=== PATIENT | female | born 1935 | race Caucasian/White ===

== ENCOUNTER → 2019-01-22 | Outpatient (CLI) | payer MEDICARE ==
--- NOTE | 2019-01-22 15:51 | Diagnostic Imaging Report ---
Indication: Pain, fall Comparison: Imaging from same day Technique: Frontal and lateral radiographs of the thoracic spine dated 01/22/2019. Findings: Mild accentuation of the normal thoracic kyphosis. No significant anterolisthesis or retrolisthesis within the thoracic spine itself. Minimal anterior wedging within the mid thoracic spine without discrete fracture plane. Otherwise, scattered endplate degenerative changes without discrete vertebral body compression deformity. Scattered disc space height loss, greatest near the thoracolumbar junction. Multilevel anterior osteophytes. No acute fracture plane. No large volume pleural effusion. No suspicious radiopaque foreign body. Scattered vascular calcifications. Impression: Mild anterior wedging within the mid thoracic spine without discrete fracture plane. This is of uncertain chronicity, though given appearance, favored to be chronic in nature. Recommend correlation for focal pain. Additionally, comparison to prior imaging would be beneficial. If there remains clinical concern for this region, further evaluation with MRI could be obtained. Scattered degenerative changes. Dictated by: Dictated on workstation # [id number]
--- NOTE | 2019-01-22 15:53 | Diagnostic Imaging Report ---
INDICATION: Back pain post fall. AP and lateral views of the lumbar spine are obtained. FINDINGS: Lumbar vertebrae show anterolisthesis of L4 on L5 by about 12 mm, compatible with grade 2 anterolisthesis. There is diffuse facet degenerative change throughout the lumbar spine from L3 through S1. There is some irregularity of the L2 superior endplate which is likely chronic. IMPRESSION: Grade 2 spondylolisthesis of L4 on L5. Diffuse degenerative change in the lumbar spine. There is some irregularity of the superior endplate of L2 anteriorly, which is of uncertain age but likely chronic. Dictated by: Dictated on workstation # [id number]
== END ==
LOC: RAD FS 15:12
PROVIDERS: ATTEND Chiropractor
DX: M43.16 Spondylolisthesis, lumbar region (principal); M47.816 Spondylosis without myelopathy or radiculopathy, lumbar region; M47.814 Spondylosis without myelopathy or radiculopathy, thoracic region; W19.XXXA Unspecified fall, initial encounter
CPT/HCPCS: 72070; 72100

== ENCOUNTER → 2020-10-09 | Outpatient (CLI) | payer MEDICARE ==
[~2020-10-09] VITALS: Ht 170.2 cm; Wt 100.0 kg
[~2020-10-09] MED LIST: LIDOCAINE 1% INJ 20 ML 20 ML VIAL INJ ONE; LIDOCAINE 1% INJ 20 ML 20 ML VIAL ONE
--- NOTE | 2020-10-09 14:12 | Diagnostic Imaging Report ---
INDICATION: Right lobe thyroid mass. EXAM: The patient presents for ultrasound guided fine needle aspiration and biopsy. FINDINGS: The patient was brought to the procedure room, placed on the table in the supine position. Ultrasound imaging of the right neck was performed to evaluate appropriate entry site. The right neck was then prepped and draped in the usual sterile fashion. A small amount 1% lidocaine was utilized for local anesthesia. A total of 4 passes were made into the solid nodule in the right lobe of the thyroid utilizing 25-gauge needles and fine needle aspiration technique. A single pass was made into the nodule with a Rotex needle and a Rotex biopsy was performed. Hemostasis was obtained using manual compression. The patient tolerated the procedure well and left the department in stable condition. IMPRESSION: Successful ultrasound guided fine needle aspiration and Rotex biopsy of dominant solid right lobe thyroid nodule. Pathology results are currently pending. Dictated by: Dictated on workstation # [id number]
== END ==
LOC: RAD 12:58
PROVIDERS: ATTEND Family Medicine
DX: E04.1 Nontoxic single thyroid nodule (principal)
CPT/HCPCS: 10005; 88173

== ENCOUNTER 2021-02-13 15:12 | Emergency (ER) | payer MEDICARE ==
[~2021-02-13] VITALS: Ht 167.7 cm; Wt 102.0 kg
[2021-02-13] MEDS ORDERED: fentaNYL INJ 100 MCG/2 ML AMP IVP ONE (15:30)
[2021-02-13] MEDS ORDERED: ONDANSETRON 4 MG/2 ML (SDV) Z0FRAN IVP ONE (15:30)
[2021-02-13 15:37] LABS: HEMOGLOBIN 14.4 G/DL (11.5-16.0); MEAN CORPUSCULAR HEMOGLOBIN 33 PG (25-34); WHITE BLOOD COUNT 6.9 10^3/uL (4.3-11.0)
[2021-02-13 15:38] LABS: BASOPHILS # (AUTO) 0.1 10^3/uL (0.0-0.1); BASOPHILS % (AUTO) 1 % (0-10); EOSINOPHILS # (AUTO) 0.3 10^3/uL (0.0-0.3); EOSINOPHILS % (AUTO) 5 % (0-10); HEMATOCRIT 43 % (35-52); LYMPHOCYTES # (AUTO) 2.6 X 10^3 (1.0-4.0); LYMPHOCYTES % (AUTO) 38 % (12-44); MEAN CORPUSCULAR HGB CONC 34 G/DL (32-36); MEAN CORPUSCULAR VOLUME 98 FL (80-99); MONOCYTES # (AUTO) 0.5 X 10^3 (0.0-1.0); MONOCYTES % (AUTO) 8 % (0-12); NEUTROPHILS # (AUTO) 3.3 X 10^3 (1.8-7.8); NEUTROPHILS % (AUTO) 48 % (42-75); PLATELET COUNT 197 10^3/uL (130-400)
[2021-02-13 16:05] LABS: CREATININE SERUM 0.6 MG/DL (0.60-1.30); POTASSIUM 4.2 MMOL/L (3.6-5.0)
[2021-02-13 16:06] LABS: ALBUMIN 4.4 GM/DL (3.2-4.5); BILIRUBIN,TOTAL 0.6 MG/DL (0.1-1.0); TOTAL PROTEIN 7.5 GM/DL (6.4-8.2)
--- NOTE | 2021-02-13 16:07 | ED Hip Pain/Injury ---
General Chief Complaint: Hip/Pelvic Problems Stated Complaint: FALL,RT HIP INJ Nursing Triage Note: PT ARRIVED BY EMS WITH CHIEF COMPLAINT OF FALL WITH HIP INJURY. PT STATED TAHT SHE WAS IN THE KITCHEN COOKING HER LUNCH, WHEN SHE GRABBED THE ROLLING CHAIR AND SHE WENT DOWN WITH IT. PT COMPLAINS OF RIGHT HIP PAIN WITH A PAIN OF 5/6. PT HAS SHORTENING OF THE RIGHT LEG. PULSES WERE FOUND IN HER RIGHT LEG. EMS STARTED AN IV IN RIGHT HAND AND GAVE THE PATIENT 4 MG OF ZOFRAN AND A TOTAL OF 75 MCG OF FENTANYL. PT HAS HISTORY OF A-FIB AND EMS STATED SHE WAS IN A-FIB. PATIENT STATED SHE DOES NOT WANT ANYMORE PAIN MEDICATIONS. REPORT WAS GIVEN TO PROVIDER. Source: patient Exam Limitations: no limitations History of Present Illness Date Seen by Provider: Feb 13, 2021 Time Seen by Provider: 15:30 Initial Comments Patient is an 85-year-old female presents with accidental fall from standing with right hip injury/shortening. Patient was holding onto a roller chair and slipped in the kitchen landing on her right hip. Denies hitting her head, headache, loss of consciousness neck pain. No other injury or pain complaint pain. No distal extremity loss of sensation or new motor weakness history of chronic atrial fibrillation currently on Xarelto. Timing/Duration: just prior to arrival Severity: moderate Location: hip (R) Method of Injury: fell Modifying Factors: Improves With Movement Associated Symptoms: other Allergies and Home Medications Allergies Coded Allergies: No Known Drug Allergies (Unverified , 10/09/20) Patient Home Medication List Home Medication List Reviewed: Yes Review of Systems Constitutional: see HPI EENTM: no symptoms reported Respiratory: see HPI Cardiovascular: no symptoms reported Gastrointestinal: no symptoms reported Genitourinary: no symptoms reported Musculoskeletal: no symptoms reported Skin: no symptoms reported Psychiatric/Neurological: No Symptoms Reported Past Tzjifsb-Wykbdb-Thklcr Hx Patient Social History Tobacco Use?: Yes Smoking Status: Never a Smoker Substance use?: No Alcohol Use?: No Pt feels they are or have been: No Physical Exam Vital Signs Vital Signs - First Documented 02/13/21 15:14 Temp 36.1 Pulse 85 Resp 18 B/P (MAP) 191/109 (136) Pulse Ox 97 O2 Delivery Room Air Capillary Refill : Less Than 3 Seconds Height, Weight, BMI Height: '" Weight: lbs. oz. kg; 36.00 BMI Method: General Appearance: No Apparent Distress HEENT: PERRL/EOMI, Moist Mucous Membranes Neck: Full Range of Motion, Non Tender, Supple Cardiovascular: Regular Rate, Rhythm Respiratory: Lungs Clear Gastrointestinal: Soft Extremity: Other (Right hip lateral pain, tenderness foreshortening) Skin: Normal Color Lymphatic: No Adenopathy Progress/Results/Core Measures Results/Orders Lab Results Laboratory Tests Test 02/13/21 15:30 Range/Units White Blood Count 6.9 4.3-11.0 10^3/uL Red Blood Count 4.40 4.35-5.85 10^6/uL Hemoglobin 14.4 11.5-16.0 G/DL Hematocrit 43 35-52 % Mean Corpuscular Volume 98 80-99 FL Mean Corpuscular Hemoglobin 33 25-34 PG Mean Corpuscular Hemoglobin Concent 34 32-36 G/DL Red Cell Distribution Width 12.8 10.0-14.5 % Platelet Count 197 130-400 10^3/uL Mean Platelet Volume 10.0 7.4-10.4 FL Immature Granulocyte % (Auto) 0 % Neutrophils (%) (Auto) 48 42-75 % Lymphocytes (%) (Auto) 38 12-44 % Monocytes (%) (Auto) 8 0-12 % Eosinophils (%) (Auto) 5 0-10 % Basophils (%) (Auto) 1 0-10 % Neutrophils # (Auto) 3.3 1.8-7.8 X 10^3 Lymphocytes # (Auto) 2.6 1.0-4.0 X 10^3 Monocytes # (Auto) 0.5 0.0-1.0 X 10^3 Eosinophils # (Auto) 0.3 0.0-0.3 10^3/uL Basophils # (Auto) 0.1 0.0-0.1 10^3/uL Immature Granulocyte # (Auto) 0.0 0.0-0.1 10^3/uL Sodium Level 136 135-145 MMOL/L Potassium Level 4.2 3.6-5.0 MMOL/L Chloride Level 98 98-107 MMOL/L Carbon Dioxide Level 27 21-32 MMOL/L Anion Gap 11 5-14 MMOL/L Blood Urea Nitrogen 21 H 7-18 MG/DL Creatinine 0.60 0.60-1.30 MG/DL Estimat Glomerular Filtration Rate 95 BUN/Creatinine Ratio 35 Glucose Level 135 H 70-105 MG/DL Calcium Level 10.0 8.5-10.1 MG/DL Corrected Calcium 9.7 8.5-10.1 MG/DL Total Bilirubin 0.6 0.1-1.0 MG/DL Aspartate Amino Transf (AST/SGOT) 27 5-34 U/L Alanine Aminotransferase (ALT/SGPT) 23 0-55 U/L Alkaline Phosphatase 113 40-136 U/L Total Protein 7.5 6.4-8.2 GM/DL Albumin 4.4 3.2-4.5 GM/DL My Orders Orders - NELL ANGELES DO Pelvis With Right Hip 2-3 View (02/13/21 15:25) Femur 2 View Right (02/13/21 15:25) Chest 1 View Ap/Pa Only (02/13/21 15:25) Ekg-Prn For Chest Pain Or Rhyt (02/13/21 15:25) Cbc With Automated Diff (02/13/21 15:25) Comprehensive Metabolic Panel (02/13/21 15:25) Catheter(Urinary) Insert & Ass 03,15 (02/13/21 15:25) Fentanyl Inj (Sublimaze Injection) (02/13/21 15:30) Ondansetron Injection (Zofran Injectio (02/13/21 15:30) Ekg Tracing (02/13/21 15:36) Vital Signs/I&O 02/13/21 15:14 Temp 36.1 Pulse 85 Resp 18 B/P (MAP) 191/109 (136) Pulse Ox 97 O2 Delivery Room Air Blood Pressure Mean: 136 Departure Communication (Admissions) EKG: Atrial fibrillation, rate 77 Right hip/pelvis: Proximal right hip fracture Chest x-ray: No acute cardiopulmonary disease Patient with nondisplaced right hip fracture isolated injury. Neurovascularly intact. Patient accepted to [facility] per Dr. Camargo at 1600 Impression Primary Impression: Hip fracture, right Disposition: 02 XFER SHT-TRM HOSP Condition: Stable Transfer Transfer Reason: Exceeds level of care Time Spoke to Accepting Phy: 16:00 Method of Transfer: EMS Departure-Patient Inst. Decision time for Depature: 17:54 Referrals: SELFMADIHA MD (PCP/Family) Primary Care Physician Patient Instructions: Hip Fracture (DC) NELL ANGELES DO Feb 13, 2021 16:07
--- NOTE | 2021-02-13 17:02 | Diagnostic Imaging Report ---
INDICATION: Fall, hip pain. EXAMINATION: Chest, 02/13/2021. FINDINGS: The right and left hemidiaphragms are eventrated. The heart is prominent. Pulmonary vasculature unremarkable. Lungs and pleural spaces clear. No pneumothorax. IMPRESSION: Incidental findings with no acute cardiopulmonary process. Dictated by: Dictated on workstation # [id number]
--- NOTE | 2021-02-13 17:02 | Diagnostic Imaging Report ---
INDICATION: Right leg injury, pain, swelling. COMPARISON: None. FINDINGS: Multiple views of the right femur demonstrate an intact right knee arthroplasty. There is a comminuted fracture involving the proximal femur and intertrochanteric region of the right hip. There is no dislocation. IMPRESSION: Proximal femur right hip fracture. Dictated by: Dictated on workstation # [id number]
--- NOTE | 2021-02-13 17:02 | Diagnostic Imaging Report ---
INDICATION: Fall, right hip pain, injury, swelling. COMPARISON: None. FINDINGS: Single view of the pelvis and multiple views of the right hip demonstrate nondisplaced fracture of the intertrochanteric region of the right hip and proximal femur. There is no dislocation. The pelvis and left hip are intact. IMPRESSION: Nondisplaced proximal femur and intertrochanteric right hip fracture. Dictated by: Dictated on workstation # [id number]
[2021-02-13] MEDS ORDERED: fentaNYL INJ 100 MCG/2 ML AMP ONE (18:03)
[2021-02-13] MEDS ORDERED: ONDANSETRON 4 MG/2 ML (SDV) Z0FRAN ONE (18:04)
[2021-02-13 20:44] VITALS: BP 136/70
--- OUTSIDE RECORDS SUMMARY | 2021-02-14 01:48 | XMS REPORT | Clinical Summary ---
Author Author [facility] Organization [facility] Address Unknown Phone Unavailable Care Team Providers Care Credit Collections Specialist Name Role Phone Self, Geronimo BRODERICK PCP Kevin Holliday MD Unavailable Juan Messer MD Unavailable Chilango Shen MD Unavailable Source Comments Some departments are not documenting in the electronic medical record. If you d o not see the information that you expected, contact Release of Information in [facility] Information Management department at [phone] for further assistan ce in locating additional records.[facility] Allergies Comments Active Allergy Reactions Severity Noted Date Amiodarone NAUSEA AND 05/12/2012 VOMITING Dry Heeves Codeine SEE COMMENTS 10/29/2011 Digoxin NAUSEA AND 10/28/2011 VOMITING "Eyes itch and coughing" Seasonal Allergies SEE COMMENTS 02/25/2012 Medications End Date Status Medication Sig Dispensed Refills Start Date Active dabigatran (PRADAXA) 150 Take 150 mg 0 mg capsule by mouth twice daily. Active cloNIDine (CATAPRESS) 0.1 Take 0.1 mg 0 mg tablet by mouth daily. Active potassium chloride SR Take 20 mEq 0 (K-DUR) 20 mEq tablet by mouth daily with breakfast. Active ropinirole (REQUIP) 0.5 Take 0.5-1 mg 0 mg tablet by mouth at bedtime as needed. Active glucosamine(+) 500 mg Tab Take 1,000 mg 0 by mouth daily. Active ONE DAILY MULTI-VITAMIN Take 1 Tab by 0 PO mouth daily. Active furosemide (LASIX) 40 mg Take 40 mg by 0 tablet mouth daily. Active diltiazem SR (+) (TAZTIA Take 360 mg 0 XT) 360 mg capsule by mouth daily. Active Problems Problem Noted Date Bronchiectasis 01/07/2012 Secondary pulmonary hypertension 01/07/2012 Hypertension 10/28/2011 Overview: Formatting of this note might be differ ent from the original. Diagnosed about 20 years ago. Cough 10/28/2011 Overview: Formatting of this note might be differ ent from the original. Non productive, past 18 months. Atrial fibrillation with controlled ventricular respo nse 10/28/2011 Overview: Formatting of this note might be differ ent from the original. Cardioverted to SR 08/2010. On Pradaxa for PAF(cannot tell when she goes into afib) Amiodarone. Edema of both legs 10/28/2011 Overview: Formatting of this note might be differ ent from the original. Better in am. L always worse than R. RLS (restless legs syndrome) 10/28/2011 Overview: Formatting of this note might be differ ent from the original. On requip. H/O: hysterectomy 10/28/2011 Overview: Formatting of this note might be differ ent from the original. @ age 33. Surgical History Surgery Date Site/Laterality Comments DOPPLER ECHOCARDIOGRAPHY HYSTERECTOMY Medical History Medical History Date Comments HTN (hypertension) Atrial fibrillation (HCC) Seasonal allergic reaction Family History Medical History Relation Name Comments Coronary Artery Disease Father Heart Failure Father Coronary Artery Disease Mother Heart Failure Mother Hypertension Sister Hypertension Sister Asthma Neg Hx Blood Clots Neg Hx COPD Neg Hx Cancer Neg Hx Cystic Fibrosis Neg Hx DVT Neg Hx Pulmonary Embolism Neg Hx Pulmonary Fibrosis Neg Hx Pulmonary HTN Neg Hx Relation Name Status Comments Father CHF (Age 83) Mother CHF (Age 80) Sister Alive Sister Sister alzheimers (Age 73) Social History Date Tobacco Use Types Packs/Day Years Used Never Smoker Smokeless Tobacco: Never Used Comments Alcohol Use Standard Drinks/Week occasional,social Yes 0 (1 standard drink = 0.6 o z pure alcohol) Sex Assigned at Date Recorded Not on file Last Filed Vital Signs Reading Time Taken Comments Vital Sign 166/90 04/28/2015 9:08 AM CDT Blood Pressure 70 04/28/2015 9:08 AM CDT Pulse 36.8 C (98.2 F) 05/12/2012 10:16 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 Temperature 18 05/12/2012 10:16 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 Respiratory Rate 99% 05/12/2012 10:16 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 RA Oxygen Saturation - - Inhaled Oxygen Concentration 96.3 kg (212 lb 3.2 oz) 04/28/2015 9:08 AM CDT Weight 166.4 cm (5' 5.5") 04/28/2015 9:08 AM CDT Height 34.77 04/28/2015 9:08 AM CDT Body Mass Index Plan of Treatment Health Maintenance Due Date Last Done Comments DTAP/TDAP VACCINES (1 - 1955 Tdap) PHYSICAL (COMPREHENSIVE) 1953 EXAM SHINGLES RECOMBINANT 1987 VACCINE (1 of 2) OSTEOPOROSIS 2002 SCREENING/MONITORING PNEUMONIA (PPSV23) 2002 VACCINE (1 of 1 - PPSV23) INFLUENZA VACCINE 04/03/2021 01/07/2012 (Declined) Results Not on filefrom Last 3 Months Advance Directives Patient Chief Meteorologist Explanation Type Date Recorded Advance 03/07/2015 1:22 PM Directive/DPOA Advance Directives 10/28/2011 1:57 PM and Living Will
== END 2021-02-13 21:11 | disposition short-term general hospital (02) ==
LOC: EDUNIT# 15:12 → ER FS 15:18
DX: S72.144A Nondisplaced intertrochanteric fracture of right femur, initial encounter for closed fracture (principal); I48.91 Unspecified atrial fibrillation; Z79.01 Long term (current) use of anticoagulants; W01.0XXA Fall on same level from slipping, tripping and stumbling without subsequent striking against object, initial encounter
CPT/HCPCS: 36415; 51702; 71045; 73502; 73552; 80053; 85025; 93005

== ENCOUNTER 2021-03-11 17:44 | Emergency (ER) | payer MEDICARE ==
[~2021-03-11] VITALS: Ht 167 cm; Wt 105.2 kg
--- OUTSIDE RECORDS SUMMARY | 2021-03-11 17:48 | XMS REPORT | Clinical Summary ---
Author Author [facility] Organization [facility] Address Unknown Phone Unavailable Care Team Providers Care Hand Crown Pouncer Name Role Phone Geronimo Boland MD PCP Geronimo Boland MD Unavailable Kevin Holliday MD Unavailable Juan Messer MD Unavailable Chilango Shen MD Unavailable Source Comments Some departments are not documenting in the electronic medical record. If you d o not see the information that you expected, contact Release of Information in [facility] Information Management department at [phone] for further assistan ce in locating additional records.[facility] Allergies Comments Active Allergy Reactions Severity Noted Date Amiodarone NAUSEA AND 05/12/2012 VOMITING Dry Heeves Codeine SEE COMMENTS 10/29/2011 Codeine NAUSEA ONLY Low 02/13/2021 Digoxin NAUSEA AND 10/28/2011 VOMITING Lisinopril COUGH Low 02/13/2021 "Eyes itch and coughing" Seasonal Allergies SEE [...] 360 mg capsule by mouth daily. Active rOPINIRole (REQUIP) 1 mg Take 1.5 mg 0 tablet by mouth at bedtime daily. Take one & one half tablets by mouth daily Active potassium chloride SR Take 1 tablet 0 (K-DUR) 20 mEq tablet by mouth twice daily. Take with a meal and a full glass of water. Active metoprolol tartrate 25 mg Take 25 mg by 0 tablet mouth twice daily. Active calcium carbonate Chew 1 tablet 0 (CALCIUM 500) 500 mg by mouth calcium (1,250 mg) daily. chewable tablet Active cholecalciferol (VITAMIN Take 1,000 0 D-3) 1,000 units tablet Units by mouth daily. Active gentamicin 0.3 % Apply 1 drop 0 ophthalmic solution to both eyes every 4 hours. Active acetaminophen (TYLENOL) Take two 0 325 mg tablet tablets by 1 mouth every 6 hours. Active methocarbamoL (ROBAXIN) Take one 30 tablet 0 750 mg tablet tablet by 1 mouth three times daily. Active oxyCODONE (ROXICODONE) 5 Take one 30 tablet 0 0 202 mg tablet tablet to 1 three tablets by mouth every 4 hours as needed Active polyethylene glycol 3350 Take one 12 each 0 0 (MIRALAX) 17 g packet packet by 1 mouth twice daily. Active senna/docusate Take one 90 tablet 0 (SENOKOT-S) 8.6/50 mg tablet by 1 tablet mouth twice daily. 03/18/2021 Active enoxaparin (LOVENOX) 100 Inject 1 mL 56 each 0 0 mg syringe under the 1 skin every 12 hours for 28 days. Active naloxone (NARCAN) 4 Insert one 2 each 0 mg/actuation nasal spray spray into 1 nose as directed as Needed. Active melatonin (MELATIN) 3 mg Take one 90 tablet 0 0 8/19/202 tablet tablet by 1 mouth at bedtime as needed. Active doxycycline hyclate Take one 30 tablet 1 (VIBRACIN) 100 mg tablet tablet by 1 mouth twice daily. 02/18/2021 Discontinued rivaroxaban (XARELTO) 20 Take 20 mg by 0 mg tablet mouth daily. Take with food. Active Problems Problem Noted Date Class 2 severe obesity with serious comorbidity in ad ult 02/14/2021 Atrial fibrillation, chronic 02/14/2021 Chronic anticoagulation 02/14/2021 Essential hypertension 02/14/2021 Restless leg syndrome 02/14/2021 Impaired mobility and activities of daily living Acute traumatic pain 02/14/2021 Hypomagnesemia 02/14/2021 Frailty syndrome in geriatric patient 02/14/2021 Gait instability 02/14/2021 Fall 02/13/2021 Hip fracture 02/13/2021 Trauma 02/13/2021 Bronchiectasis 01/07/2012 Secondary pulmonary hypertension 01/07/2012 Hypertension [...] ent from the original. @ age 33. Encounters Care Team Description Date Type Specialty Alexandr Zapata MD Arrived 03/10/2021 Hospital Radiology Encounter Alexandr Zapata MD Closed fracture of right hip with routin e healing, subsequent encounter (Primary Dx); Closed fracture of right hip, initial encounter (HCC) 03/10/2021 Office Visit Orthopedic Surgery 03/10/2021 Travel Alexandr Zapata MD Closed fracture of right hip, initial en counter (HCC) (Primary Dx) 03/06/2021 Orders Only Orthopedic Surgery Fawn Camargo MD 02/15/2021 Hospital Radiology Encounter Nolan Mello MD 02/14/2021 Anesthesia Event Alexandr Zapata MD TREATMENT INTERTROCHANTERIC/ PERITROCHAN TERIC/ SUBTROCHANTERIC FEMORAL FRACTURE WITH INTERMEDULLARY IMPLANT WITH/ WITHOUT INTERLOCKING SCREWS/ CERCLAGE 02/14/2021 Surgery Fawn Camargo MD Trauma 02/13/2021 Hospital - Encounter 02/19/2021 02/13/2021 Travel from Last 3 Months Surgical History Surgery Date Site/Laterality Comments DOPPLER ECHOCARDIOGRAPHY HYSTERECTOMY FEMUR FRACTURE SURGERY 02/14/2021 Hip/Right TREATME NT INTERTROCHANTERIC/ PERITROCHANTERIC/ SUBTROCHANTERIC FEMORAL FRACTURE WITH INTERMEDULLARY IMPLANT WITH/ WITHOUT IN TERLOCKING SCREWS/ CERCLAGE performed by Alexandr Zapata MD at [facility] Medical devices from this surgery are i n the Implants section. Medical History Medical History Date Comments HTN [...] Used Comments Alcohol Use Standard Drinks/Week occasional,social Not Currently 0 (1 standard drink = 0.6 o z pure alcohol) Alcohol Habits Answer Date Recorded How often do you have a drink containing alcohol? No t asked How many drinks containing alcohol do you have on No t asked a typical day when you are drinking? How often do you have six or more drinks on one Not asked occasion? Comment: occasional,social 10/28/2011 Sex Assigned at Date Recorded Female 02/23/2021 9:56 AM CDT Date Recorded COVID-19 Exposure Response 03/10/2021 11:38 AM CDT In the last month, have you been in contact with No / Unsure someone who was confirmed or suspected to have Coronavirus / COVID-19? Last Filed Vital Signs Reading Time Taken Comments Vital Sign 129/56 02/19/2021 1:30 PM CDT Blood Pressure 88 02/19/2021 1:30 PM CDT Pulse 36.6 C (97.8 F) 02/19/2021 1:30 PM CDT Temperature 18 05/12/2012 10:16 AM MEDICAL TYPIST Respiratory Rate 98% 02/19/2021 1:30 PM CDT Oxygen Saturation - - Inhaled Oxygen Concentration 106.1 kg (234 lb) 03/10/2021 11:58 AM CDT Weight 167.6 cm (5' 5.98") 03/10/2021 11:58 AM CDT Height 37.79 03/10/2021 11:58 AM CDT Body Mass Index Plan of Treatment Health Maintenance Due Date Last Done Comments MEDICARE ANNUAL WELLNESS 1935 VISIT DTAP/TDAP VACCINES (1 - 1955 Tdap) PHYSICAL (COMPREHENSIVE) 1955 EXAM SHINGLES RECOMBINANT 1987 VACCINE (1 of 2) OSTEOPOROSIS 2002 SCREENING/MONITORING PNEUMONIA (PPSV23) 2002 VACCINE (1 of 1 - PPSV23) INFLUENZA VACCINE 04/03/2021 01/07/2012 (Declined) Goals Goal Patient Associated Recent Progress Patient-Stat Aut hor Goal Type Problems ed? Remain independent Hospital On track (02/14/2021 No Travis, 8:19 AM CDT) HARVEY Zaldivar Implants Device Identifier Shelf Expiration Date Model / Serial / L ot Implanted Type Area Manufactur er 12/01/2030 [id number] / [id number] / [id number] Nail 12mm 360mm Femoral Right Right: Femur SYNTHES Proximal Tfn-Advanced Lateral - SYNTHES [id number] [place] Implanted: Qty: 1 on 02/14/2021 by Alexandr Zapata MD at [facility] 10/31/2030 [id number] / [id number] / [id number] Blade Intramedullary Nail Lane 90mm Right: Femur DE PUY 10.35mm Tfn-Advanced - [id number] [employer] [place] Implanted: Qty: 1 on 02/14/2021 by Alexandr Zapata MD at [facility] 02/14/2022 [id number] / [id number] / X Screw Bone 5mm 8mm 44mm Titanium Right: Femur DEPU Y Full Thread Femur Blunt Tip - [employer] [id number] Implanted: Qty: 1 on 02/14/2021 by Alexandr Zapata MD at [facility] 02/14/2022 [id number] / [id number] / X Screw Bone 5mm 8mm 48mm Titanium Right: Femur DEPU Y Full Thread Femur Blunt Tip - [employer] [id number] Implanted: Qty: 1 on 02/14/2021 by Alexandr Zapata MD at [facility] Procedures Comments Procedure Name Priority Date/Time Associated Diag nosis FEMUR 2 VIEWS RIGHT Routine 03/10/2021 Closed fra cture of right 12:14 PM CDT hip, initial encounter (HCC) HC PHOSPHOROUS, SERUM Routine 02/18/2021 5:09 AM CDT HC MAGNESIUM Routine 02/18/2021 5:09 AM CDT HC COMPREHENSIVE Routine 02/18/2021 METABOLIC PANEL 5:09 AM CDT HC CBC,AUTOMATED Routine 02/18/2021 5:09 AM CDT HC TSH SCREEN Add on 02/17/2021 2:58 AM CDT HC PHOSPHOROUS, SERUM Routine 02/17/2021 2:58 AM CDT HC MAGNESIUM Routine 02/17/2021 2:58 AM CDT HC COMPREHENSIVE Routine 02/17/2021 METABOLIC PANEL 2:58 AM CDT HC CBC,AUTOMATED Routine 02/17/2021 2:58 AM CDT HC IRON BINDING CAPACITY Add on 02/16/2021 + %SAT 4:18 AM CDT HC PHOSPHOROUS, SERUM Routine 02/16/2021 4:18 AM CDT HC MAGNESIUM Routine 02/16/2021 4:18 AM CDT HC COMPREHENSIVE Routine 02/16/2021 METABOLIC PANEL 4:18 AM CDT HC CBC,AUTOMATED Routine 02/16/2021 4:18 AM CDT CTA NECK WO/W STAT 02/15/2021 CONTRAST+POST P 5:13 AM CDT CTA HEAD WO/W CONTR+POST STAT 02/15/2021 PRO 5:[address] HEAD WO CONTRAST STAT 02/15/2021 4:46 AM CDT POC GLUCOSE 02/15/2021 4:31 AM CDT HC PHOSPHOROUS, SERUM Routine 02/15/2021 4:21 AM CDT HC MAGNESIUM Routine 02/15/2021 4:21 AM CDT HC COMPREHENSIVE Routine 02/15/2021 METABOLIC PANEL 4:21 AM CDT HC CBC,AUTOMATED Routine 02/15/2021 4:21 AM CDT FLUORO MOBILE IN OR Routine 02/14/2021 2:34 PM CDT TREATMENT 02/14/2021 Trauma INTERTROCHANTERIC/ 12:25 PM CDT PERITROCHANTERIC/ SUBTROCHANTERIC FEMORAL FRACTURE WITH INTERMEDULLARY IMPLANT WITH/ WITHOUT INTERLOCKING SCREWS/ CERCLAGE HC BLOOD TYPING, ABO Routine 02/14/2021 CONFIRM 91 4:48 AM CDT TYPE & CROSSMATCH MICHELLE 02/14/2021 4:29 AM CDT HC PHOSPHOROUS, SERUM Routine 02/14/2021 4:28 AM CDT HC MAGNESIUM Routine 02/14/2021 4:28 AM CDT HC COMPREHENSIVE Routine 02/14/2021 METABOLIC PANEL 4:28 AM CDT HC CBC,AUTOMATED Routine 02/14/2021 4:28 AM CDT HC PHOSPHOROUS, SERUM STAT 02/13/2021 11:00 PM CDT HC MAGNESIUM STAT 02/13/2021 11:00 PM CDT HC COMPREHENSIVE STAT 02/13/2021 METABOLIC PANEL 11:00 PM CDT HC CBC,AUTOMATED STAT 02/13/2021 11:00 PM CDT COVID-19 (SARS-COV-2) PCR Routine 02/13/2021 11:00 PM CDT ECG-SCAN 02/13/2021 12:00 AM CDT TELEMETRY STRIPS-SCAN 02/13/2021 12:00 AM CDT from Last 3 Months Results * FEMUR 2 VIEWS RIGHT (03/10/2021 12:14 PM CDT) Specimen Right Impressions Performed At 1. IM court and screw fixation across subtrochanteric right proximal femur [facility] fracture. Increased medial displacement of the femoral shaft since the intraoperative radiographs. Early callu s formation about the fracture. No hardware failure. 2. Mild degenerative arthritis right hip. 3. Right TKA. Finalized by Edwar Lester M.D. on 021 1:12 PM. Dictated by Edwar Lester M.D. on 03/10/2021 1:10 PM. Narrative Performed At Exam: FEMUR 2 VIEWS RIGHT [facility] CLINICAL INDICATION: 85 years. Cephalom edullary nailing of right pertrochanteric hip fracture. 02/14/21. COMPARISON: Fluoroscopic images 02/15/20. Procedure Note Interface, Radiant Results - 03/10/2021 1:15 PM CDT Exam: FEMUR 2 VIEWS RIGHT CLINICAL INDICATION: 85 years. Cephalomedullary nailing of right pertrochanteric hip fracture. 02/14/21. COMPARISON: Fluoroscopic images 02/14/2021. IMPRESSION 1. IM court and screw fixation across sub trochanteric right proximal femur fracture. Increased medial displacement of the femoral shaft since the intraoperative radiographs. Early callus formation about the fracture. No hardware failure. 2. Mild degenerative arthritis right hi p. 3. Right TKA. Finalized by Edwar Lester M.D. on 03/10/2021 1:12 PM. Dictated by Edwar Lester M.D. on 03/10/2021 1:10 PM. Performing Organization Address City/[facility] P xochitl Number [facility] * CBC (02/18/2021 5:09 AM CDT) Only the most recent of 6 results within the time period is included. White Blood 7.2 4.5 - 11.0 K/UL [facility] Cells RBC 2.09 (L) 4.0 - 5.0 M/UL [facility] Hemoglobin 7.2 (L) 12.0 - 15.0 GM/DL [facility] Hematocrit 20.5 (L) 36 - 45 % [facility] MCV 98.4 80 - 100 FL [facility] MCH 34.7 (H) 26 - 34 PG [facility] MCHC 35.3 32.0 - 36.0 G/DL [facility] RDW 13.1 11 - 15 % [facility] Platelet Count 175 150 - 400 K/UL [facility] MPV 8.0 7 - 11 FL [facility] Specimen Blood Performing Organization Address [facility] P xochitl Number [facility] [address] [place] [address] * PHOSPHORUS (02/18/2021 5:09 AM CDT) Only the most recent of 6 results within the time period is included. Phosphorus 2.8 2.0 - 4.5 MG/DL [facility] Specimen Blood Performing Organization Address [facility] P xochitl Number [facility] [address] [place] [address] * MAGNESIUM (02/18/2021 5:09 AM CDT) Only the most recent of 6 results within the time period is included. Magnesium 2.0 1.6 - 2.6 mg/dL [facility] Specimen Blood Performing Organization Address City/[facility]/ZIP Code P xochitl Number [facility] [address] [place] [address] * COMPREHENSIVE METABOLIC PANEL (02/18/2021 5:09 AM CDT) Only the most recent of 6 results within the time period is included. Sodium 135 (L) 137 - 147 MMOL/L [facility] Potassium 3.8 3.5 - 5.1 MMOL/L [facility] Chloride 100 98 - 110 MMOL/L [facility] Glucose 114 (H) 70 - 100 MG/DL [facility] Blood Urea 16 7 - 25 MG/DL [facility] Nitrogen Creatinine 0.43 0.4 - 1.00 MG/DL [facility] Calcium 8.6 8.5 - 10.6 MG/DL [facility] Total Protein 5.6 (L) 6.0 - 8.0 G/DL [facility] Total Bilirubin 1.3 (H) 0.3 - 1.2 MG/DL [facility] Albumin 3.1 (L) 3.5 - 5.0 G/DL [facility] Alk Phosphatase 86 25 - 110 U/L [facility] AST (SGOT) 19 7 - 40 U/L [facility] CO2 28 21 - 30 MMOL/L [facility] ALT (SGPT) 12 7 - 56 U/L [facility] Anion Gap 7 3 - 12 [facility] eGFR Non >60 >60 mL/min [facility] Comment: [place] The eGFR is not validated f or use in drug dosing adjustments. Continue to use estimated creatinine clearance per dosing reference text. Please contact the Clinical Pharmacist for questions. eGFR >60 >60 mL/min [facility] [place] Comment: The eGFR is not validated for use in drug dosing adjustments. Continue to use estimated creatinine clearance per dosing reference text. Please contact the Clinical Pharmacist for questions. Specimen Blood Performing Organization Address City/[facility]/ZIP Code P xochitl Number [facility] [address] [place] [address] * TSH WITH FREE T4 REFLEX (02/17/2021 2:58 AM CDT) TSH 1.92 0.35 - 5.00 MCU/ML [facility] Specimen Performing Organization Address City/State/ZIP Code P xochitl Number [facility] [address] [facility] [place] [address] * IRON + BINDING CAPACITY + %SAT+ FERRITIN (02/16/2021 4:18 AM CDT) Iron 48 (L)Comment: SLT HEMOLYSIS 50 - 160 MCG/DL [facility] Iron 313 270 - 380 MCG/DL [facility] Binding-TIBC % Saturation 15 (L) 28 - 42 % [facility] Ferritin 282 (H) 10 - 200 NG/ML [facility] Specimen Performing Organization Address City/State/ZIP Code P xochitl Number [facility] [address] [place] [address] * CTA NECK WO/W CONTRAST+POST P (02/15/2021 5:13 AM CDT) Specimen Impressions Performed At CTA head: [facility] 1. No occlusion or high-grade stenosi s of major intracranial arteries. 2. Mild cerebral white matter disease , likely secondary to chronic microvascular ischemic changes. CTA neck: 1. No flow-limiting stenosis, occlusi on, or dissection of the cervical carotid or vertebral arteries. 2. Advanced cervical spondylosis with at least moderate multilevel central spinal stenosis and marked multilevel b ilateral neural foraminal stenosis. 3. Hypodense right thyroid nodule. Th yroid ultrasound could be performed for further evaluation if indicated. Jason Mcadams MD discussed these find ings with Dr. Acuna by telephone 02/15/2021 5:36 AM By my electronic signature, I attest th at I have personally reviewed the images for this examination and formulated the interpretations and opinions expressed in this report Finalized by Antonio Singer MD, PhD on 02/15/2021 6:07 AM. Dictated by Jason Mcadams MD on 02/15/2021 5:25 AM . Narrative Performed At EXAM: CTA HEAD AND NECK [facility] HISTORY: Right lower extremity weakness. TECHNIQUE: Multiple contiguous axial im ages were obtained of the brain and neck following the administration of IV co ntrast. Precontrast axial images were also obtained of the brain. CTA maximum density projection images were obtained of the brain and neck with image post p rocessing. Comparison: Recent noncontrast CT head. FINDINGS: CTA head: Improved noncontrast images compared to recent prior imaging. The ventricles and subarachnoid spaces are normal in size and configuration. Mild supratentorial white matter hypodensities. The welch wh ite matter interfaces are grossly maintained. There is no midline shift o r mass effect. There is no evidence of acute intracranial hemorrhage. The basa l cisterns are patent. The calvarium is intact. Mild calcifications of the carotid siph ons without high-grade stenosis. The distal vertebral and basilar arteries a re patent without focal narrowing or occlusion. The anterior, middle, and po sterior cerebral arteries are patent without focal narrowing. Incidental fet al origin of the bilateral budder. No aneurysm or arteriovenous malformation is identified. CTA neck: The aortic arch vessel origins are wide ly patent. Calcifications of the carotid siphons without focal stenosis accordin g to NASCET criteria. The common carotid and cervical portions of the internal c arotid and vertebral arteries are patent without focal narrowing. No aneurysm, A VM, or dissection is identified. Heterogeneous right thyroid nodule portia uring at least 2 cm. Mild ethmoid and maxillary sinus reveals thickening. Sma ll left maxillary sinus mucous retention cysts or polyps. Maxilla is edentulous. Mild biapical atelectasis and/or scarring. Cervical spondylosis with at least moderate multilevel central spinal stenosis and marked multilevel bilatera l neural foraminal stenosis. Procedure Note Interface, Radiant Results - 02/15/2021 6:10 AM CDT EXAM: CTA HEAD AND NECK HISTORY: Right lower extremity weakness. TECHNIQUE: Multiple contiguous axial images were obtained of the brain and neck following the administration of IV contrast. Precontrast axial images were also obtained of the brain. CTA maximum density projection images were obtained of the brain and neck with image post processing. Comparison: Recent noncontrast CT head. FINDINGS: CTA head: Improved noncontrast images compared to recent prior imaging. The ventricles and subarachnoid spaces are normal in size and configuration. Mild supratentorial white matter hypodensities. The welch white matter interfaces are grossly maintained. There is no midline shift or mass effect. There is no evidence of acute intracranial hemorrhage. The basal cisterns are patent. The calvarium is intact. Mild calcifications of the carotid siphons without high-grade stenosis. The distal vertebral and basilar arteries are patent without focal narrowing or occlusion. The anterior, middle, and posterior cerebral arteries are patent without focal narrowing. Incidental origin of the bilateral budder. No aneurysm or arteriovenous malformation is identified. CTA neck: The aortic arch vessel origins are widely patent. Calcifications of the carotid siphons without focal stenosis according to NASCET criteria. The common carotid and cervical portions of the internal carotid and vertebral arteries are patent without focal narrowing. No aneurysm, AVM, or dissection is identified. Heterogeneous right thyroid nodule measuring at least 2 cm. Mild ethmoid and maxillary sinus reveals thickening. Small left maxillary sinus mucous retention cysts or polyps. Maxilla is edentulous. Mild biapical atelectasis and/or scarring. Cervical spondylosis with at least moderate multilevel central spinal stenosis and marked multilevel bilateral neural foraminal stenosis. IMPRESSION CTA head: 1. No occlusion or high-grade stenosis of major intracranial arteries. 2. Mild cerebral white matter disease, likely secondary to chronic microvascular ischemic changes. CTA neck: 1. No flow-limiting stenosis, occlusion , or dissection of the cervical carotid or vertebral arteries. 2. Advanced cervical spondylosis with a t least moderate multilevel central spinal stenosis and marked multilevel bilateral neural foraminal stenosis. 3. Hypodense right thyroid nodule. Thyr oid ultrasound could be performed for further evaluation if indicated. Jason Mcadams MD discussed these findings with Dr. Acuna by telephone 02/15/2021 5:36 AM By my electronic signature, I attest that I have personally reviewed the images for this examination and formulated the interpretations and opinions expressed in this report Finalized by Antonio Singer MD, PhD on 02/15/2021 6:07 AM. Dictated by Jason Mcadams MD on 02/15/2021 5:25 AM. Performing Organization Address City/State/ZIP Code P xochitl Number [facility] * CTA HEAD WO/W CONTR+POST PRO (02/15/2021 5:13 AM CDT) Specimen Impressions Performed At CTA head: [facility] 1. No occlusion or high-grade stenosi s of major intracranial arteries. 2. Mild cerebral white matter disease , likely secondary to chronic microvascular ischemic changes. CTA neck: 1. No flow-limiting stenosis, occlusi on, or dissection of the cervical carotid or vertebral arteries. 2. Advanced cervical spondylosis with at least moderate multilevel central spinal stenosis and marked multilevel b ilateral neural foraminal stenosis. 3. Hypodense right thyroid nodule. Th yroid ultrasound could be performed for further evaluation if indicated. Jason Mcadams MD discussed these find ings with Dr. Acuna by telephone 02/15/2021 5:36 AM By my electronic signature, I attest th at I have personally reviewed the images for this examination and formulated the interpretations and opinions expressed in this report Finalized by Antonio Singer MD, PhD on 02/15/2021 6:07 AM. Dictated by Jason Mcadams MD on 02/15/2021 5:25 AM . Narrative Performed At EXAM: CTA HEAD AND NECK [facility] HISTORY: Right lower extremity weakness. TECHNIQUE: Multiple contiguous axial im ages were obtained of the brain and neck following the administration of IV co ntrast. Precontrast axial images were also obtained of the brain. CTA maximum density projection images were obtained of the brain and neck with image post p rocessing. Comparison: Recent noncontrast CT head. FINDINGS: CTA head: Improved noncontrast images compared to recent prior imaging. The ventricles and subarachnoid spaces are normal in size and configuration. Mild supratentorial white matter hypodensities. The welch wh ite matter interfaces are grossly maintained. There is no midline shift o r mass effect. There is no evidence of acute intracranial hemorrhage. The basa l cisterns are patent. The calvarium is intact. Mild calcifications of the carotid siph ons without high-grade stenosis. The distal vertebral and basilar arteries a re patent without focal narrowing or occlusion. The anterior, middle, and po sterior cerebral arteries are patent without focal narrowing. Incidental fet al origin of the bilateral budder. No aneurysm or arteriovenous malformation is identified. CTA neck: The aortic arch vessel origins are wide ly patent. Calcifications of the carotid siphons without focal stenosis accordin g to NASCET criteria. The common carotid and cervical portions of the internal c arotid and vertebral arteries are patent without focal narrowing. No aneurysm, A VM, or dissection is identified. Heterogeneous right thyroid nodule portia uring at least 2 cm. Mild ethmoid and maxillary sinus reveals thickening. Sma ll left maxillary sinus mucous retention cysts or polyps. Maxilla is edentulous. Mild biapical atelectasis and/or scarring. Cervical spondylosis with at least moderate multilevel central spinal stenosis and marked multilevel bilatera l neural foraminal stenosis. Procedure Note Interface, Radiant Results - 02/15/2021 6:10 AM CDT EXAM: CTA HEAD AND NECK HISTORY: Right lower extremity weakness. TECHNIQUE: Multiple contiguous axial images were obtained of the brain and neck following the administration of IV contrast. Precontrast axial images were also obtained of the brain. CTA maximum density projection images were obtained of the brain and neck with image post processing. Comparison: Recent noncontrast CT head. FINDINGS: CTA head: Improved noncontrast images compared to recent prior imaging. The ventricles and subarachnoid spaces are normal in size and configuration. Mild supratentorial white matter hypodensities. The welch white matter interfaces are grossly maintained. There is no midline shift or mass effect. There is no evidence of acute intracranial hemorrhage. The basal cisterns are patent. The calvarium is intact. Mild calcifications of the carotid siphons without high-grade stenosis. The distal vertebral and basilar arteries are patent without focal narrowing or occlusion. The anterior, middle, and posterior cerebral arteries are patent without focal narrowing. Incidental origin of the bilateral budder. No aneurysm or arteriovenous malformation is identified. CTA neck: The aortic arch vessel origins are widely patent. Calcifications of the carotid siphons without focal stenosis according to NASCET criteria. The common carotid and cervical portions of the internal carotid and vertebral arteries are patent without focal narrowing. No aneurysm, AVM, or dissection is identified. Heterogeneous right thyroid nodule measuring at least 2 cm. Mild ethmoid and maxillary sinus reveals thickening. Small left maxillary sinus mucous retention cysts or polyps. Maxilla is edentulous. Mild biapical atelectasis and/or scarring. Cervical spondylosis with at least moderate multilevel central spinal stenosis and marked multilevel bilateral neural foraminal stenosis. IMPRESSION CTA head: 1. No occlusion or high-grade stenosis of major intracranial arteries. 2. Mild cerebral white matter disease, likely secondary to chronic microvascular ischemic changes. CTA neck: 1. No flow-limiting stenosis, occlusion , or dissection of the cervical carotid or vertebral arteries. 2. Advanced cervical spondylosis with a t least moderate multilevel central spinal stenosis and marked multilevel bilateral neural foraminal stenosis. 3. Hypodense right thyroid nodule. Thyr oid ultrasound could be performed for further evaluation if indicated. Jason Mcadams MD discussed these findings with Dr. Acuna by telephone 02/15/2021 5:36 AM By my electronic signature, I attest that I have personally reviewed the images for this examination and formulated the interpretations and opinions expressed in this report Finalized by Antonio Singer MD, PhD on 02/15/2021 6:07 AM. Dictated by Jason Mcadmas MD on 02/15/2021 5:25 AM. Performing Organization Address City/State/ZIP Code P xochitl Number [facility] * CT HEAD WO CONTRAST (02/15/2021 4:46 AM CDT) Specimen Impressions Performed At Degraded examination without obvious acute intracrani al abnormality. [facility] Jason Mcadams MD discussed these find ings with Dr. Acuna by telephone 02/15/2021 4:57 AM By my electronic signature, I attest th at I have personally reviewed the images for this examination and formulated the interpretations and opinions expressed in this report Finalized by Antonio Singer MD, PhD on 02/15/2021 5:34 AM. Dictated by Jason Mcadams MD on 02/15/2021 4:47 AM . Narrative Performed At EXAM: CT HEAD [facility] HISTORY: Disorientation. Right lower extremity w eakness. TECHNIQUE: Multiple contiguous axial im ages were obtained of the brain without intravenous contrast. COMPARISON: None FINDINGS: Degraded examination due to motion. The ventricles and subarachnoid spaces are grossly normal in size and configuration. There is no midline sh ift or mass effect. The welch white matter interfaces are grossly maintained. The basal cisterns are patent. There is no evidence of acute intracranial hemorrha ge or extra-axial fluid collection. Distal carotid calcifications. Small ma xillary sinus mucous retention cysts or polyps. Mastoid air cells are clear. Fa lx and tentorial calcifications. Procedure Note Interface, Radiant Results - 02/15/2021 5:37 AM CDT EXAM: CT HEAD HISTORY: Disorientation. Right lower extremity weakness. TECHNIQUE: Multiple contiguous axial images were obtained of the brain without intravenous contrast. COMPARISON: None FINDINGS: Degraded examination due to motion. The ventricles and subarachnoid spaces are grossly normal in size and configuration. There is no midline shift or mass effect. The welch white matter interfaces are grossly maintained. The basal cisterns are patent. There is no evidence of acute intracranial hemorrhage or extra-axial fluid collection. Distal carotid calcifications. Small maxillary sinus mucous retention cysts or polyps. Mastoid air cells are clear. Falx and tentorial calcifications. IMPRESSION Degraded examination without obvious acute intracranial abnormality. Jason Mcadams MD discussed these findings with Dr. Acuna by telephone 02/15/2021 4:57 AM By my electronic signature, I attest that I have personally reviewed the images for this examination and formulated the interpretations and opinions expressed in this report Finalized by Antonio Singer MD, PhD on 02/15/2021 5:34 AM. Dictated by Jason Mcadams MD on 02/15/2021 4:47 AM. Performing Organization Address City/[facility]/ZIP Code P xochitl Number [facility] * POC GLUCOSE (02/15/2021 4:31 AM CDT) Glucose, POC 159 (H) 70 - 100 MG/DL [facility] Specimen Performing Organization Address City/[facility]/ZIP Code P xochitl Number MAIN LAB [address] [place] [address] * FLUORO MOBILE IN OR (02/14/2021 2:34 PM CDT) Specimen Narrative Performed At This order has been auto finalized and does not conta in a result. [facility] Performing Organization Address City/[facility]/ZIP Code P xochitl Number [facility] * BLOOD TYPE CONFIRMATION - ORDER ONLY IF REQUESTED BY LAB (02/14/2021 4:48 AM CDT) ABO/RH(D) O POS MAIN LAB Specimen Blood,Peripheral Performing Organization Address City/[facility] Code P xochitl Number MAIN LAB [address] [place] [address] * TYPE & CROSSMATCH (02/14/2021 4:29 AM CDT) Units Ordered 0 MAIN LAB Crossmatch 02/17/2021,2359 MAIN LAB Expires Record Check 2ND TYPE REQUIRED MAIN LAB ABO/RH(D) O POS MAIN LAB Antibody Screen NEG MAIN LAB Electronic YES MAIN LAB Crossmatch Specimen Blood,Peripheral Performing Organization Address City/[facility]/ZIP Code P xochitl Number MAIN LAB [address] [place] [address] * COVID-19 (SARS-COV-2) PCR (02/13/2021 11:00 PM CDT) COVID-19 FLOCKED SWAB MAIN LAB (SARS-CoV-2) NASOPHARYNGEAL PCR Source COVID-19 NOT DETECTED DN-NOT DETECTED MAIN LAB (SARS-CoV-2) Comment: PCR This assay is designed to detect the S and/or ORF1ab genes of SARS-CoV-2 using nucleic acid amplification. A "Not Detected" result does not preclude the possibility of SARS-CoV-2 infection since the adequacy of sample collection and/or low viral burden may result in the presence of viral nucleic acids below the analytical sensitivity of this test method. Test results should be used along with other clinical and laboratory data in making the diagnosis. Test parameters have not been validated for screening in asymptomatic patients.This test has not been FDA cleared or approved. This test is authorized for use under the FDA Emergency Use Authorization and performance characteristics have been verified by the [facility]. Fact sheet for providers: https://www.fda.gov/media/1787 85/download Fact sheet for patients: https://www.fda.gov/media/7515 87/download Specimen Flocked Swab - Nasopharyngeal Performing Organization Address City/State/ZIP Code P xochitl Number MAIN LAB [address] [place] [address] * TELEMETRY STRIPS-SCAN (02/13/2021 12:00 AM CDT) Narrative Performed At This result has an attachment that is n ot available. Ordered by an unspecified provider. * ECG-SCAN (02/13/2021 12:00 AM CDT) Narrative Performed At This result has an attachment that is n ot available. Ordered by an unspecified provider. 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 02/14/2021 9:13 AM Full Code 02/13/2021 10:49 PM Provider has discussed Code Status No, more discussi on w/Patient or Family? needed
--- OUTSIDE RECORDS SUMMARY | 2021-03-11 17:48 | XMS REPORT | Encounter Summary ---
Author Author [facility] Organization [facility] Address Unknown Phone Unavailable Care Team Providers Care Medical Support Specialist Name Role Phone Geronimo Boland MD PCP Geronimo Boland MD Unavailable Kevin Holliday MD Unavailable Juan Messer MD Unavailable Chilango Shen MD Unavailable Encounter Details Care Team Description Date Type Department 03/10/2021 Travel Social History Date Tobacco Use Types Packs/Day [...] or suspected to have Coronavirus / COVID-19? documented as of this encounter Functional Status Date of Assessment Functional Status Response 02/14/2021 Does the patient have a hearing impairment: Yes documented as of this encounter Plan of Treatment Not on filedocumented as of this encounter Goals Goal Patient Associated Recent Progress Patient-Stat Aut hor Goal Type Problems ed? Remain independent Hospital On track (02/14/2021 No Travis, 8:19 AM CDT) HARVEY Zaldivar documented as of this encounter Visit Diagnoses Not on filedocumented in this encounter Additional Health Concerns Assessment Noted Time A fall risk assessment has been completed for the pat ient 02/19/2021 8:48 AM CDT documented as of this encounter
--- OUTSIDE RECORDS SUMMARY | 2021-03-11 17:49 | XMS REPORT | Encounter Summary ---
Author Author [facility] Organization [facility] Address Unknown Phone Unavailable Care Team Providers Care Probation And Patrol Agent Name Role Phone Geronimo Boland MD PCP Geronimo Boland MD Unavailable Kevin Holliday MD Unavailable Juan Messer MD Unavailable Chilango Shen MD Unavailable Reason for Referral * Radiology Services (Routine) Referred By Contact Referred To Contact Status Reason Specialty Diagnoses / Procedures Alexandr Zapata MD [address] [facility] [address] [place] [id number] New Request Radiology Diagnoses Closed fracture of right hip, initial encounter (HCC) P rocedures FEMUR 2 VIEWS RIGHT Electronically signed by Alexandr Zapata MD at Reason for Visit * Radiology Services (Routine) Referred By Contact Referred To Contact Status Reason Specialty Diagnoses / Procedures Alexandr Zapata MD [address] [facility] [address] [place] [id number] New Request Radiology Diagnoses Closed fracture of right hip, initial encounter (HCC) P rocedures FEMUR 2 VIEWS RIGHT Encounter Details Care Team Description Date Type Department Alexandr Zapata MD [address] [facility] [address] [place] [address] [phone] Arrived 03/10/2021 Hospital Imaging: [facility], Encounter [facility] [address] [place] [id number] Social History Date Tobacco Use Types Packs/Day [...] ed? Remain independent Hospital On track (02/14/2021 Heidi Robles, 8:19 AM CDT) HARVEY Zaldivar documented as of this encounter Procedures Comments Procedure Name Priority Date/Time Associated Diag nosis FEMUR 2 VIEWS RIGHT Routine 03/10/2021 Closed fra cture of right 12:14 PM CDT hip, initial encounter (HCC) documented in this encounter Results * FEMUR 2 VIEWS RIGHT (03/10/2021 [...] on 03/10/2021 1:10 PM. Performing Organization Address City/State/ZIP Code P xochitl Number [facility] documented in this encounter Visit Diagnoses Diagnosis Closed fracture of right hip, initial e ncounter (HCC) documented in this encounter Additional Health Concerns Assessment Noted Time A fall risk assessment has been completed for the pat ient 02/19/2021 8:48 AM CDT documented as of this encounter
--- OUTSIDE RECORDS SUMMARY | 2021-03-11 17:49 | XMS REPORT | Encounter Summary ---
Author Author [facility] Organization [facility] Address Unknown Phone Unavailable Care Team Providers Care Rn Admit Name Role Phone No Pcp, Na PCP Unavailable Geronimo Boland MD PCP Geronimo Boland MD Unavailable Kevin Holliday MD Unavailable Juan Messer MD Unavailable Chilango Haji MD Unavailable Reason for Visit * Auth/Cert Referred By Contact Referred To Contact Status Reason Specialty Diagnoses / Procedures Diagnoses Trauma Right Hip Fracture Encounter Details Care Team Description Date Type Department Fawn Camargo MD [address] [place] [address] Trauma 02/13/2021 Hospital Patient Care Unit B H51: - Encounter Main [place], Main 02/19/2021 Hospital [address] [facility] [address] [place] [address] Social History Date Tobacco Use Types Packs/Day Years Used Never Smoker Smokeless Tobacco: Never Used Comments Alcohol Use Standard Drinks/Week Not Currently 0 (1 standard drink = [...] AM CDT Date Recorded COVID-19 Exposure Response 02/13/2021 5:11 PM CDT In the last month, have you been in contact with Zayda ble to assess someone who was confirmed or suspected to have Coronavirus / COVID-19? documented as of this encounter Last Filed Vital Signs Reading Time Taken Comments Vital Sign 129/56 02/19/2021 1:30 PM CDT Blood Pressure 88 02/19/2021 1:30 PM CDT Pulse 36.6 C (97.8 F) 02/19/2021 1:30 PM CDT Temperature - - Respiratory Rate 98% 02/19/2021 1:30 PM CDT Oxygen Saturation - - Inhaled Oxygen Concentration 105 kg (231 lb 7.7 oz) 02/13/2021 10:53 PM CDT Weight 167.6 cm (5' 6") 02/13/2021 10:53 PM CDT Height 37.36 02/13/2021 10:53 PM CDT Body Mass Index documented in this encounter Functional Status Date of Assessment Functional Status Response 02/14/2021 Does the patient have a hearing impairment: Yes documented as of this encounter Discharge Summaries * Alonso Morrowy - 02/19/2021 8:11 PM CDT Physician Discharge Summary Name: West Cerna Date Of : 1935 Age: 85 years Admit date: 02/13/2021 Discharge date: 02/19/2021 8:11 PM Attending Physician: Ventura Yañez MD Service: Surgery-Trauma Physician Summary completed by: ADRIENNE Coley Reason for hospitalization: Right Hip Fracture; Trauma Significant PMH: No past medical history on file. Allergies: Codeine and Lisinopril Admission Physical Exam notable for: Primary survey: Airway patent to voice, trachea midline Breath sounds equal bilaterally, equal chest rise Carotid and femoral pulses palpable bilaterally, heart sounds clear GCS 15([id number]) 5/5 strength/sensation in bilateral uppers. 4/5 in b/l lowers. Patient unable to dorsiflex LLE, reports this is baseline for her. Secondary Survey HEENT: head normocephalic, PERRL, tympanic membranes intact, no blood in ears/no se/mouth, no midface instability Neck: no point tenderness, no pain with ROM. Chest: No chest wall instability Abdomen: Soft, non-tender, non-distended, no masses, no rebound, no guarding. Back: No CTL tenderness to palpation, no stepoff, no deformity Extremities: tenderness to right hip, slight leg length discrepancy. Admission Lab/Radiology studies notable for: CTA HEAD WO/W CONTR+POST PRO Final Result CTA head: 1. No occlusion or high-grade stenosis of major intracranial arteries. 2. Mild cerebral white matter disease, likely secondary to chronic microvascula r ischemic changes. CTA neck: 1. No flow-limiting stenosis, occlusion, or dissection of the cervical carotid or vertebral arteries. 2. Advanced cervical spondylosis with at least moderate multilevel central spin al stenosis and marked multilevel bilateral neural foraminal stenosis. 3. Hypodense right thyroid nodule. Thyroid ultrasound could be performed for fu rther evaluation if indicated. Jason Mcadams MD discussed these findings with Dr. Acuna by telephone 5:36 AM By my electronic signature, I attest that I have personally reviewed the images for this examination and formulated the interpretations and opinions expressed i n this report Finalized by Antonio Singer MD, PhD on 02/15/2021 6:07 AM. Dictated by Joesph Mcadams MD on 02/15/2021 5:25 AM. CTA NECK WO/W CONTRAST+POST P Final Result CTA head: 1. No occlusion or high-grade stenosis of major intracranial arteries. 2. Mild cerebral white matter disease, likely secondary to chronic microvascula r ischemic changes. CTA neck: 1. No flow-limiting stenosis, occlusion, or dissection of the cervical carotid or vertebral arteries. 2. Advanced cervical spondylosis with at least moderate multilevel central spin al stenosis and marked multilevel bilateral neural foraminal stenosis. 3. Hypodense right thyroid nodule. Thyroid ultrasound could be performed for fu rther evaluation if indicated. Jason Mcadams MD discussed these findings with Dr. Acuna by telephone 5:36 AM By my electronic signature, I attest that I have personally reviewed the images for this examination and formulated the interpretations and opinions expressed i n this report Finalized by Antonio Singer MD, PhD on 02/15/2021 6:07 AM. Dictated by Joesph Mcadams MD on 02/15/2021 5:[address] HEAD WO CONTRAST Final Result Degraded examination without obvious acute intracranial abnormality. Jason Mcadams MD discussed these findings with Dr. Acuna by telephone 4:57 AM By my electronic signature, I attest that I have personally reviewed the images for this examination and formulated the interpretations and opinions expressed i n this report Finalized by Antonio Singer MD, PhD on 02/15/2021 5:34 AM. Dictated by Joesph Mcadams MD on 02/15/2021 4:47 AM. FLUORO MOBILE IN OR Final Result Results for [facility] ( ) as of 02/20/2021 06:09 Ref. Range 02/13/2021 23:00 Hemoglobin Latest Ref Range: 12.0 - 15.0 GM/DL 13.7 Hematocrit Latest Ref Range: 36 - 45 % 41.0 Platelet Count Latest Ref Range: 150 - 400 K/UL 165 White Blood Cells Latest Ref Range: 4.5 - 11.0 K/UL 10.0 RBC Latest Ref Range: 4.0 - 5.0 M/UL 4.16 MCV Latest Ref Range: 80 - 100 FL 98.5 MCH Latest Ref Range: 26 - 34 PG 32.9 MCHC Latest Ref Range: 32.0 - 36.0 G/DL 33.4 MPV Latest Ref Range: 7 - 11 FL 8.1 RDW Latest Ref Range: 11 - 15 % 12.7 Sodium Latest Ref Range: 137 - 147 MMOL/L 139 Potassium Latest Ref Range: 3.5 - 5.1 MMOL/L 4.3 Chloride Latest Ref Range: 98 - 110 MMOL/L 101 CO2 Latest Ref Range: 21 - 30 MMOL/L 27 Anion Gap Latest Ref Range: 3 - 12 11 Blood Urea Nitrogen Latest Ref Range: 7 - 25 MG/DL 22 Creatinine Latest Ref Range: 0.4 - 1.00 MG/DL 0.57 eGFR Non Latest Ref Range: >60 mL/min >60 eGFR Latest Ref Range: >60 mL/min >60 Glucose Latest Ref Range: 70 - 100 MG/DL 110 (H) Albumin Latest Ref Range: 3.5 - 5.0 G/DL 4.1 Calcium Latest Ref Range: 8.5 - 10.6 MG/DL 9.6 Magnesium Latest Ref Range: 1.6 - 2.6 mg/dL 1.8 Total Bilirubin Latest Ref Range: 0.3 - 1.2 MG/DL 0.8 Total Protein Latest Ref Range: 6.0 - 8.0 G/DL 7.1 Phosphorus Latest Ref Range: 2.0 - 4.5 MG/DL 3.6 AST (SGOT) Latest Ref Range: 7 - 40 U/L 21 ALT (SGPT) Latest Ref Range: 7 - 56 U/L 19 Alk Phosphatase Latest Ref Range: 25 - 110 U/L 81 COVID-19 (SARS-CoV-2) PCR Latest Ref Range: DN-NOT DETECTED NOT DETECTED COVID-19 (SARS-CoV-2) PCR Source Unknown FLOCKED SWAB... Brief Hospital Course: The patient was admitted and the following issues were a ddressed during this hospitalization: (with pertinent details). West Cerna is a 85 y.o. F w/PMH of Afib on Xarelto, HTN, and RLS who pr esented to as a trauma transfer 02/13/21 s/p fall. She reported that she was s itting in a chair when it slid out from under her and she landed on her R hip. S he denied head strike or LOC. She was unable to get up and had R hip pain. She w as taken to [facility] where she was found to have a right subtrochanteric femu r fracture. She was transferred for higher level of care. She was admitted to e trauma floor with Ortho and IM consults. She went to the OR 02/14 for CMN of he r R hip. Overnight 02/14-02/15 she was found to have altered mental status with fa ilure to follow commands or answer questions. She was stroke activated but had i mprovement in symptoms during CT. Neurology recommended LITIGATOR evaluation which she passed and was given a regular diet. She has returned to normal mental status. PT and OT was initiated and she was restarted on a regular diet and any indicate d home medications. Oral pain medicine that was titrated to her needs. Labs were routinely followed and electrolytes were replaced as indicated. Prior to discha rge she was cleared by PT/OT, had adequate pain control, and return of bowel fun ction. Appropriate follow-up was scheduled. Discussed hospital visit with patient, answered all questions, and reviewed the plan for discharge to home and to follow up as an outpatient. The patient was ve rbally instructed to return to the ED immediately for further evaluation if ther e are any new or concerning symptoms, or worsening of current symptoms. The patti ent acknowledged understanding of these instructions. Written discharge instruct ions were also given to supplement this information. Condition at Discharge: Stable Discharge Diagnoses: Hospital Problems Active Problems * (Principal) Trauma Fall Hip fracture (HCC) Class 2 severe obesity with serious comorbidity in adult (HCC) Atrial fibrillation, chronic (HCC) Chronic anticoagulation Essential hypertension Restless leg syndrome Impaired mobility and activities of daily living Acute traumatic pain Hypomagnesemia Frailty syndrome in geriatric patient Gait instability Principal Problem: Trauma Active Problems: Fall Hip fracture (HCC) Class 2 severe obesity with serious comorbidity in adult (HCC) Atrial fibrillation, chronic (HCC) Chronic anticoagulation Essential hypertension Restless leg syndrome Impaired mobility and activities of daily living Acute traumatic pain Hypomagnesemia Frailty syndrome in geriatric patient Gait instability Surgical Procedures: Procedure(s) (LRB): TREATMENT INTERTROCHANTERIC/ PERITROCHANTERIC/ SUBTROCHANTERIC FEMORAL FRACTURE WITH INTERMEDULLARY IMPLANT WITH/ WITHOUT INTERLOCKING SCREWS/ CERCLAGE (Right) Significant Diagnostic Studies and Procedures: noted in brief hospital course Consults: CONSULT INTERNAL MEDICINE PHYSICIAN CONSULT ORTHOPEDIC SURGERY PHYSICIAN Patient Disposition: [facility] Patient instructions/medications: Regular Diet You have no dietary restriction. Please continue with a healthy balanced diet. Report These Signs and Symptoms Please contact your doctor if you have any of the following symptoms: temperatu re higher than 100.4 degrees F, uncontrolled pain, persistent nausea and/or vomi ting, difficulty breathing, chest pain, severe abdominal pain, headache, unable to urinate, unable to have bowel movement, or drainage with a foul odor Questions About Your Stay For questions or concerns regarding your hospital stay, call [phone]. Discharging attending physician: VENTURA YAÑEZ [[id number]] Activity as Tolerated It is important to keep increasing your activity level after you leave the hosp ital. Moving around can help prevent blood clots, lung infection (pneumonia) an d other problems. Gradually increasing the number of times you are up moving ar ound will help you return to your normal activity level more quickly. Continue to increase the number of times you are up to the chair and walking daily to ret urn to your normal activity level. Begin to work toward your normal activity lev el at discharge Bathing Restrictions Recommend sponge baths until follow up with Ortho Driving Restrictions No driving while taking pain medication and until physician approval at follow- up appointment. Restrictions for Right Leg Weight bearing: You may decide how much weight to put on your leg. If you feel pain, decrease the amount of weight you are putting on your leg. Continue these restrictions until follow up appointment. Other Activity Restrictions Please hold your Xarelto and use the Lovenox until follow up with Ortho Return Appointment You may follow-up in the Trauma Surgery Clinic on an as needed basis. Please ca if you would like to schedule an appointment or with any quest ions or concerns. Provider TRAUMA, SURGERY [[id number]] Return Appointment Please follow up with Ortho in 2 weeks -Leave dressings in place until follow up appointment. If any new drainage seen or concerns for infection, please contact Dr. Barlow's office @ [phone]. -Follow up appointment needed with the orthopedics clinic with Dr. Barlow or va s ORI Willis, please call [phone] or [phone] to schedule/confirm this appointment. Provider ALEXANDR ZAPATA [[id number]] Opioid (Narcotic) Safety Information OPIOID (NARCOTIC) PAIN MEDICATION SAFETY We care about your comfort, and believe you need opioid medications at this time to treat your pain. An opioid is a strong pain medication. It is only availab le by prescription for moderate to severe pain. Usually these medications are u sed for only a short time to treat pain, but sometimes will be prescribed for lo nger. Talk with your doctor or nurse about how long they expect you to need thi s medication. When used the right way, opioids are safe and effective medications to treat you r pain, even when used for a long time. Yet, when used in the wrong way, opioid s can be dangerous for you or others. Opioids do not work for everyone. Most p atients do not get full relief of their pain from opioid medication; full relief of your pain may not be possible. For your safety, we ask you to follow these instructions: *Only take your opioid medication as prescribed. If your pain is not controlled with the prescribed dose, or the medication is not lasting long enough, call yo ur doctor. *Do not break or crush your opioid medication unless your doctor or pharmacist s ays you can. With certain medications, this can be dangerous, and may cause abigail th. *Never share your medications with others, even if they appear to have a good re ason. Never take someone else's pain medication-this is dangerous, and illegal (a crime). Overdoses and deaths have occurred. *Keep your opioid medications safe, as you would with cherry, in a lock box or sim ilar container. *Make sure your opioids are going to be secure, especially if you are around chi ldren or teens. *Talk with your doctor or pharmacist before you take other medications. *Avoid driving, operating machinery, or drinking alcohol while taking opioid priyank n medication. This may be unsafe. Pain medications can cause constipation. Constipation is bowel movements that ar e less often than normal. Stools often become very hard and difficult to pass. T his may lead to stomach pain and bloating. It may also cause pain when trying to use the bathroom. Constipation may be treated with suppositories, laxatives or stool softeners. A diet high in fiber with plenty of fluids helps to maintain re gular, soft bowel movements. Narcotic pain medications will not be refilled after business hours (8 am-5 pm) or on the weekends. Please call the clinic during regular busines s hours if you think you may need a refill. Please note that trauma clinic polic y limits refills to one maximum. Naloxone Nasal [place] Instructions Naloxone nasal spray Brand Name: Narcan What is this medicine? NALOXONE (nal OX one) is a narcotic tammi. It is used to treat narcotic drug o verdose. What are the signs of narcotic drug overdose? The person does not wake up after shaking their shoulders, shouting their name o r firmly rubbing the middle of their chest; very slow breathing or no breaths at all; center black part of the eye (pupil) is very small or pinpoint. How should I use this medicine? This medicine is for use in the nose. Lay the person on their back. Support thei r neck with your hand and allow the head to tilt back before giving the medicine . The nasal spray should be given into 1 nostril. After giving the medicine, mov e the person onto their side. Do not remove or test the nasal spray until ready to use. If the person is not awake after 2-3 minutes, give a second dose in the other nostril. Get emergency medical help right away after giving the first dose of this medici ne, even if the person wakes up. You should be familiar with how to recognize th e signs and symptoms of a narcotic overdose. Talk to your rail car repairer regarding the use of this medicine in children. While this drug may be prescribed for chi ldren as young as newborns for selected conditions, precautions do apply. What side effects may I notice from receiving this medicine? Side effects that you should report to your doctor or health companion caregiver a s soon as possible: allergic reactions like skin rash, itching or hives, swelling of the face, li ps, or tongue breathing problems fast, irregular heartbeat high blood pressure pain that was controlled by narcotic pain medicine seizures Side effects that usually do not require medical attention (report to your docto r or health companion caregiver if they continue or are bothersome): anxious chills diarrhea fever headache muscle pain nausea, vomiting nose irritation like dryness, congestion, and swelling sweating What may interact with this medicine? This medicine is only used during an emergency. No interactions are expected dur ing emergency use. What if I miss a dose? This does not apply. Where should I keep my medicine? Keep out of the reach of children. Store between 4 and 40 degrees C (39 and 104 degrees F). Do not freeze. Throw aw ay any unused medicine after the expiration date. Keep in original box until meka dy to use. What should I tell my health care provider before I take this medicine? They need to know if you have any of these conditions: drug abuse or addiction heart disease an unusual or allergic reaction to naloxone, other medicines, foods, dyes, or preservatives or trying to get breast-feeding What should I watch for while using this medicine? Keep this medicine ready for use in the case of a narcotic overdose. Make sure t hat you have the phone number of your doctor or health companion caregiver and loc ks hospital ready. You may need to have additional doses of this medicine. Each nasal spray contains a single dose. Some emergencies may require additional dose s. After use, bring the treated person to the nearest hospital or call 911. Make betts re the treating health companion caregiver knows that the person has received an i njection of this medicine. You will receive additional instructions on what to d o during and after use of this medicine before an emergency occurs. NOTE:This sheet is a summary. It may not cover all possible information. If you have questions about this medicine, talk to your doctor, pharmacist, or health c are provider. OT EVAL & TREAT PT EVAL & TREAT Complete if patient is going to a Correction Facility I certify that the patient requires skilled care Yes The patient's stay is expected to be less than 30 days Yes I will be in charge of patient in [place] [facility] No Current Discharge Medication List START taking these medications Details acetaminophen (TYLENOL) 325 mg tablet Take two tablets by mouth every 6 hours. Refills: 0 PRESCRIPTION TYPE: OTC enoxaparin (LOVENOX) 100 mg syringe Inject 1 mL under the skin every 12 hours fo r 28 days. Qty: 56 each, Refills: 0 PRESCRIPTION TYPE: Normal melatonin (MELATIN) 3 mg tablet Take one tablet by mouth at bedtime as needed. Qty: 90 tablet PRESCRIPTION TYPE: OTC methocarbamoL (ROBAXIN) 750 mg tablet Take one tablet by mouth three times daily . Qty: 30 tablet, Refills: 0 PRESCRIPTION TYPE: Normal naloxone (NARCAN) 4 mg/actuation nasal spray Insert one spray into nose as direc eufemia as Needed. Qty: 2 each, Refills: 0 PRESCRIPTION TYPE: Normal oxyCODONE (ROXICODONE) 5 mg tablet Take one tablet to three tablets by mouth ester ry 4 hours as needed Qty: 30 tablet, Refills: 0 PRESCRIPTION TYPE: Normal polyethylene glycol 3350 (MIRALAX) 17 g packet Take one packet by mouth twice da radha. Qty: 12 each PRESCRIPTION TYPE: OTC senna/docusate (SENOKOT-S) 8.6/50 mg tablet Take one tablet by mouth twice daily . Qty: 90 tablet PRESCRIPTION TYPE: OTC CONTINUE these medications which have NOT CHANGED Details calcium carbonate (CALCIUM 500) 500 mg calcium (1,250 mg) chewable tablet Chew 1 tablet by mouth daily. PRESCRIPTION TYPE: Historical Med cholecalciferol (VITAMIN D-3) 1,000 units tablet Take 1,000 Units by mouth daily . PRESCRIPTION TYPE: Historical Med gentamicin 0.3 % ophthalmic solution Apply 1 drop to both eyes every 4 hours. PRESCRIPTION TYPE: Historical Med metoprolol tartrate 25 mg tablet Take 25 mg by mouth twice daily. PRESCRIPTION TYPE: Historical Med potassium chloride SR (K-DUR) 20 mEq tablet Take 1 tablet by mouth twice daily. Take with a meal and a full glass of water. PRESCRIPTION TYPE: Historical Med rOPINIRole (REQUIP) 1 mg tablet Take 1.5 mg by mouth at bedtime daily. Take one & one half tablets by mouth daily PRESCRIPTION TYPE: Historical Med The following medications were removed from your list. This list includes medic ations discontinued this stay and those removed from your prior med list in our system rivaroxaban (XARELTO) 20 mg tablet No future appointments. Pending items needing follow up: No items pending follow up at this time Signed: ADRIENNE Coley 02/20/2021 cc: Primary Care Physician: Geronimo Boland Referring physicians: Additional provider(s): documented in this encounter Discharge Instructions * Appointments* Azra Lawson APRN-NP - 02/18/2021 8:33 AM CDT Please follow up with your PCP in 2 weeks documented in this encounter Medications at Time of Discharge Start Date End Date Medication Sig Dispensed Refills 02/18/2021 acetaminophen (TYLENOL) Take two 0 325 mg tablet tablets by mouth every 6 hours. calcium carbonate Chew 1 tablet 0 (CALCIUM 500) 500 mg by mouth calcium (1,250 mg) daily. chewable tablet cholecalciferol (VITAMIN Take 1,000 0 D-3) 1,000 units tablet Units by mouth daily. cloNIDine (CATAPRESS) 0.1 Take 0.1 mg 0 mg tablet by mouth daily. dabigatran (PRADAXA) 150 Take 150 mg 0 mg capsule by mouth twice daily. diltiazem SR (+) (TAZTIA Take 360 mg 0 XT) 360 mg capsule by mouth daily. 02/18/2021 03/18/2021 enoxaparin (LOVENOX) 100 Inject 1 mL 56 each 0 mg syringe under the skin every 12 hours for 28 days. furosemide (LASIX) 40 mg Take 40 mg by 0 tablet mouth daily. gentamicin 0.3 % Apply 1 drop 0 ophthalmic solution to both eyes every 4 hours. glucosamine(+) 500 mg Tab Take 1,000 mg 0 by mouth daily. 02/19/2021 melatonin (MELATIN) 3 mg Take one 90 tablet 0 tablet tablet by mouth at bedtime as needed. 02/18/2021 methocarbamoL (ROBAXIN) Take one 30 tablet 0 750 mg tablet tablet by mouth three times daily. metoprolol tartrate 25 mg Take 25 mg by 0 tablet mouth twice daily. 02/18/2021 naloxone (NARCAN) 4 Insert one 2 each 0 mg/actuation nasal spray spray into nose as directed as Needed. ONE DAILY MULTI-VITAMIN Take 1 Tab by 0 PO mouth daily. 02/18/2021 oxyCODONE (ROXICODONE) 5 Take one 30 tablet 0 mg tablet tablet to three tablets by mouth every 4 hours as needed 02/18/2021 polyethylene glycol 3350 Take one 12 each 0 (MIRALAX) 17 g packet packet by mouth twice daily. potassium chloride SR Take 1 tablet 0 (K-DUR) 20 mEq tablet by mouth twice daily. Take with a meal and a full glass of water. potassium chloride SR Take 20 mEq 0 (K-DUR) 20 mEq tablet by mouth daily with breakfast. ropinirole (REQUIP) 0.5 Take 0.5-1 mg 0 mg tablet by mouth at bedtime as needed. rOPINIRole (REQUIP) 1 mg Take 1.5 mg 0 tablet by mouth at bedtime daily. Take one & one half tablets by mouth daily 02/18/2021 senna/docusate Take one 90 tablet 0 (SENOKOT-S) 8.6/50 mg tablet by tablet mouth twice daily. documented as of this encounter Ordered Prescriptions Start Date End Date Prescription Sig Dispensed Refills 02/19/2021 melatonin (MELATIN) 3 mg Take one 90 tablet 0 tablet tablet by mouth at bedtime as needed. 02/18/2021 naloxone (NARCAN) 4 Insert one 2 each 0 mg/actuation nasal spray spray into nose as directed as Needed. 02/18/2021 03/18/2021 enoxaparin (LOVENOX) 100 Inject 1 mL 56 each 0 mg syringe under the skin every 12 hours for 28 days. 02/18/2021 senna/docusate Take one 90 tablet 0 (SENOKOT-S) 8.6/50 mg tablet by tablet mouth twice daily. 02/18/2021 polyethylene glycol 3350 Take one 12 each 0 (MIRALAX) 17 g packet packet by mouth twice daily. 02/18/2021 oxyCODONE (ROXICODONE) 5 Take one 30 tablet 0 mg tablet tablet to three tablets by mouth every 4 hours as needed 02/18/2021 methocarbamoL (ROBAXIN) Take one 30 tablet 0 750 mg tablet tablet by mouth three times daily. 02/18/2021 acetaminophen (TYLENOL) Take two 0 325 mg tablet tablets by mouth every 6 hours. documented in this encounter Discharge Disposition Code Departure Means Destination Disposition [facility] documented in this encounter Progress Notes * Kwesi Huynh MD - 02/19/2021 3:48 PM CDT General Progress Note Name: West Cerna Today's Date: 02/19/2021 Admission Date: 02/13/2021 LOS: 6 days Assessment/Plan: Principal Problem: Trauma Active Problems: Fall Hip fracture (HCC) Class 2 severe obesity with serious comorbidity in adult (HCC) Atrial fibrillation, chronic (HCC) Chronic anticoagulation Essential hypertension Restless leg syndrome Impaired mobility and activities of daily living Acute traumatic pain Hypomagnesemia Frailty syndrome in geriatric patient Gait instability 85-year-old with past medical history of A. fib on Xarelto admitted as a trauma transfer after ground-level fall and sustained a right subtrochanteric femur fra cture on 02/13 Right hip fracture secondary to fall Status post ORIF 02/14, continue vitamin D3 and calcium supplementation, Continue ATC Tylenol 650 mg every 6 hours, robaxin, prn oxy IR for severe or georgette ak through pain Constipation, post op and opioids related, resolved with miralax and SenakotS BI D daily, continue bowel regimen at discharge Acute blood loss anemia secondary to right hip fracture while on OAC and post op status, Hgb drifted down 7.2mg from normal Hgb ~13gm upon admit, iron levels ch ecked- low, received iv venofer 02/17-02/18, threshold for transfusion if hgb < 7gms Right leg weakness,improved CT head without contrast, CT angio head and neck showed no acute intracranial pathology Permanent A. fib, rate controlled Continue metoprolol for rate control, primary team switched Xarelto to Lovenox 1 mg/kg twice daily starting 02/18, plans to restart Xarelto after 3 weeks of prev ention Incidental finding CT a headand neck Hypodense right thyroid nodule. Thyroid ultrasound could be performed for furthe r evaluation if indicated as out patient. TSH checked on 02/17 1.92 which is WNL Patient is medically optimized for DC today Diet:Regular diet DVT prophylaxis: Continue Lovenox 1mg/kg twice daily for 3 weeks per Ortho, th en resume xarelto that she is on for Afib Code Status: Full code Internal medicine consult pager # [phone] Subjective West eCrna is a 85 y.o. female admitted for right hip fracture, patient is seen and examined bedside, she is more awake and interactive today, oriented to place person and situation, reports pain is reasonably controlled. She is a [place] that discharge is delayed because of facility acceptance Medications Scheduled Meds:acetaminophen (TYLENOL) tablet 650 mg, 650 mg, Oral, Q6H* enoxaparin (LOVENOX) syringe 100 mg, 1 mg/kg, Subcutaneous, BID gentamicin 0.3 % ophthalmic solution 1 drop, 1 drop, Both Eyes, Q4H methocarbamoL (ROBAXIN) tablet 750 mg, 750 mg, Oral, TID metoprolol tartrate tablet 25 mg, 25 mg, Oral, BID milk of magnesia (CONC) oral suspension 10 mL, 10 mL, Oral, QDAY polyethylene glycol 3350 (MIRALAX) packet 17 g, 1 packet, Oral, BID rOPINIRole (REQUIP) tablet 1 mg, 1 mg, Oral, QDAY (See eMAR) senna/docusate (SENOKOT-S) tablet 1 tablet, 1 tablet, Oral, BID Continuous Infusions: PRN and Respiratory Meds:bisacodyL QDAY PRN, diphenhydrAMINE Q4H PRN, EPINEPHrin e PF Q5 MIN PRN, melatonin QHS PRN, ondansetron (ZOFRAN) IV Q6H PRN, oxyCODONE Q 4H PRN Objective: Vital Signs: Last Filed Vital Signs: 24 Tiffany r Range BP: 129/56 (02/19 1330) Temp: 36.6 C (97.8 F) (02/19 1330) Pulse: 88 (02/19 1330) Respirations: 18 PER MINUTE (02/19 1330) SpO2: 98 % (02/19 1330) BP: (129-155)/(56-89) Temp: [36.5 C (97.7 F)-37.1 C (98.8 F)] Pulse: [79-98] Respirations: [16 PER MINUTE-18 PER MINUTE] SpO2: [93 %-98 %] Intensity Pain Scale (Self Report): 4 (02/18/218) Vitals: 02/13/21 2253 Weight: 105 kg (231 lb 7.7 oz) Intake/Output Summary: (Last 24 hours) Intake/Output Summary (Last 24 hours) at 02/19/2021 1602 Last data filed at 02/19/2021 0730 Gross per 24 hour Intake Output 550 ml Net -550 ml Stool Occurrence: 2 Physical Exam General appearance: cooperative and no distress Respiratory: clear to auscultation bilaterally, no wheezing or rales Cardiovascular: regular rate and rhythm, S1, S2 normal, no murmur or gallop GI: Abdomen: soft, non distended, non-tender, bowel sounds are present Extremities: moves all limbs, right hip post op incision is covered in bandage, surrounding edema + Genitourinary: no bladder distension Skin: dry, no rashes Neurologic: Alert, awake and oriented X 4, normal speech, normal strength and to ne Psych: normal mood, affect and insight Lab Review 24-hour labs: No results found for this visit on 02/13/21 (from the past 24 tiffany r(s)). Point of Care Testing (Last 24 hours) Radiology and other Diagnostics Review: No pertinent radiology. Kwesi Huynh MD Pager: # [phone] * Guerita Aguirre RN - 02/19/2021 7:35 AM CDT I have reviewed the notes, assessment, and/or procedures performed by Karen Malcolm RN and concur with her/his documentation unless otherwise noted. * Azra Lawson APRN-JUSTIN - 02/19/2021 6:53 AM CDT Trauma Progress Note Today's Date: 02/19/2021 Hospital Day: Hospital Day: 7 HPI: West Cerna is a 85 y.o. F w/PMH of Afib on Xarelto, HTN, and RLS w ho presented to as a trauma transfer 02/13/21 s/p fall. She reported that she was sitting in a chair when it slid out from under her and she landed on her R h ip. She denied head strike or LOC. She was unable to get up and had R hip pain. She was taken to [facility] where she was found to have a right subtrochanteric femur fracture. She was transferred for higher level of care. She was admitted to the trauma floor with Ortho and IM consults. She went to the OR 02/14 for CMN of her R hip. Overnight 02/14-02/15 she was found to have altered mental status wi th failure to follow commands or answer questions. She was stroke activated but had improvement in symptoms during CT. Neurology recommended LITIGATOR evaluation whic h she passed and was given a regular diet. She has returned to normal mental sta tus. Assessment/ Plan: Method of injury: Fall Principal Problem: Trauma Active Problems: Fall Hip fracture (HCC) Class 2 severe obesity with serious comorbidity in adult (HCC) Atrial fibrillation, chronic (HCC) Chronic anticoagulation Essential hypertension Restless leg syndrome Impaired mobility and activities of daily living Acute traumatic pain Hypomagnesemia Frailty syndrome in geriatric patient Gait instability Neuro Acute pain due to trauma -- acetaminophen 650 mg q6h -- robaxin 750 mg tid -- oxycodone 5-15 mg q4h prn Sleep Disturbance --Melatonin 3mg QHS --INLETTER Requip CV HDS. See VS summary below Afib, HTN -- rate controlled with INLETTER metoprolol -- resume Xarelto this PM Pulm Stable on RA. SpO2 96% Pulmonary toilet, encourage IS GI/FEN Regular diet Bowel regimen SLIV Zofran prn nausea Monitor and replace lytes prn UOP 1.2 L/24hrs Cr 0.43 Heme/ID Acute blood loss anemia -- Hgb 7.2 (02/18). Hgb low, but no clinical signs of overt bleeding. Continue t o trend serially. Optimize fluid balance. Monitor stools for signs of occult GI bleeding. No leukocytosis, normothermic Endo No acute issues. Monitor and treat prn MSK R Subtrochanteric Femur Fx s/p CMN 02/14 -- ortho following -- WBAT RLE -- lovenox until follow-up -- f/u Heddings 2 weeks Impaired Mobility and ADLs -- PT/OT PPx SCDs, Xarelto Disp - continue inpatient care. PT/OT- needs inpatient placement- awaiting insur ance auth - remains stable for DC at this time SW/CM following for discharge planning needs. Patient discussed with Dr. Yañez during rounds. Subjective No acute overnight events. Pt states she slept pretty well overnight but is stil l a bit tired this morning. Discussed awaiting for insurance auth. Pt denies any needs or complaints. Will continue to monitor. Objective: Physical Exam: General: awake, No apparent distress. alert Neuro: AOx3, no focal deficits HEENT: normocephalic, atraumatic, PERRLA CV: Irregular rate and rhythm, no murmur noted Resp: Clear to auscultation bilaterally. No wheeze, even and unlabored respirati ons Abdomen: soft, non tender and non distended, normal active bowel sounds Extremities: warm and well perfused, R hip surgical dressing in place, c/d/i, in creased ecchymosis proximal incision site Musc: Moves all extremities except RLE 2/2 injury Skin: warm and dry Vital Signs: (24 hours) BP: (113-155)/(52-89) Temp: [36.2 C (97.2 F)-37.1 C (98.8 F)] Pulse: [79-93] Respirations: [16 PER MINUTE-18 PER MINUTE] SpO2: [92 %-98 %] Intake/Output Summary: Intake/Output Summary (Last 24 hours) at 02/19/2021 0653 Last data filed at 02/18/2021 1900 Gross per 24 hour Intake Output 1000 ml Net -1000 ml Prophylaxis Review: Peptic Ulcer Disease: None: not indicated VTE: VTE: Mechanical prophylaxis: SCDs, Chemoprophylaxis: Xarelto Lines, Drains, and Airways: Lines, Drains, Airways and Wounds IV Peripheral IV 02/15/21 0603 Right Mid Upper Arm 18 G 4 days Drain External Urinary Catheter 02/16/21 1200 2 days Wound Wounds 02/14/21 1445 Left Leg 4 days Pertinent labs, medications, radiology, and diagnostic procedures reviewed inclu ding: active problem list, medication list, allergies, social history, health ma intenance, notes from last encounter, lab results, imaging Nutrition: No Dietitian Consult Wound: Wound Documentation Wounds 02/14/21 1445 Left Leg (Active) 02/14/21 1445 Leg Wound Type: Pressure Injury Stages: Pressure Injury Present On Inpatient Admission: Wound/Pressure Injury Orientation: Left Wound Location Comments: Wound Description (Comments): Wound Type:: Agree With My Assessment? Yes 02/18/21 0441 Wound Dressing Status Intact 02/19/21 0000 Wound Dressing and / or Treatment Gauze;Transparent (i.e. Tegaderm) 02/19/21 000 0 Wound Drainage Description Serosanguineous 02/18/21 0803 Wound Drainage Amount None 02/19/21 0000 Wound Base Assessment Dressing intact, base not assessed 02/19/21 0000 Surrounding Skin Assessment Dry;Intact 02/19/21 0000 Wound Site Closure Wound Adhesive Bandage 02/19/21 0000 Number of days: 5 Azra Lawson, MIGUE-PRICING/SIGNAGE TEAM MEMBER [id number] Trauma Floor Pager [phone] * Kwesi Huynh MD - 02/18/2021 5:35 PM CDT General Progress Note Name: West Cerna Today's Date: 02/18/2021 Admission Date: 02/13/2021 LOS: 5 days Assessment/Plan: Principal Problem: Trauma Active Problems: Fall Hip fracture (HCC) Class 2 severe obesity with serious comorbidity in adult (HCC) Atrial fibrillation, chronic (HCC) Chronic anticoagulation Essential hypertension Restless leg syndrome Impaired mobility and activities of daily living Acute traumatic pain Hypomagnesemia Frailty syndrome in geriatric patient Gait instability 85-year-old with past medical history of A. fib on Xarelto admitted as a trauma transfer after ground-level fall and sustained a right subtrochanteric femur fra cture on 02/13 Right hip fracture secondary to fall Status post ORIF 02/14, continue vitamin D3 and calcium supplementation, Continue ATC Tylenol 650 mg every 6 hours, Robaxin, limit oxycodone as patient a ppears to sedated Constipation, post op and opioids related, resolved with miralax and SenakotS BI D daily, continue bowel regimen at discharge Acute blood loss anemia secondary to right hip fracture while on OAC and post op status, Hgb drifted down 7.6mg from normal, iron levels checked- low, ordered iv venofer infusion, threshold for transfusion if hgb <7gms Right leg weakness, improved CT head without contrast, CT angio head and neck showed no acute intracranial pa thology Permanent A. fib, rate controlled Continue metoprolol for rate control, primary team switched Xarelto to Lovenox 1 mg/kg twice daily starting 02/18, plans to restart Xarelto after [address] a head and neck Hypodense right thyroid nodule. Thyroid ultrasound could be performed for furthe r evaluation if indicated as out patient. TSH checked on 02/17 1.92 which is WNL Patient is medically optimized for DC today Diet: Regular diet DVT prophylaxis: Continue Lovenox 1 mg/kg twice daily at discharge Code Status: Full code Subjective West Cerna is a 85 y.o. female. Patient is seen and examined at [facility], she appears mildly confused and sedated however able to respond appropriately , easy to redirect, she falls asleep easily during the conversation, she reports her pain is reasonably controlled, patient is aware that social worker psychiatric is worki ng with her son deciding facility near [facility][note 3] Medications Scheduled Meds:acetaminophen (TYLENOL) tablet 650 mg, 650 mg, Oral, Q6H* enoxaparin (LOVENOX) syringe 100 mg, 1 mg/kg, Subcutaneous, BID gentamicin 0.3 % ophthalmic solution 1 drop, 1 drop, Both Eyes, Q4H methocarbamoL (ROBAXIN) tablet 750 mg, 750 mg, Oral, TID metoprolol tartrate tablet 25 mg, 25 mg, Oral, BID milk of magnesia (CONC) oral suspension 10 mL, 10 mL, Oral, QDAY polyethylene glycol 3350 (MIRALAX) packet 17 g, 1 packet, Oral, BID senna/docusate (SENOKOT-S) tablet 1 tablet, 1 tablet, Oral, BID Continuous Infusions: PRN and Respiratory Meds:bisacodyL QDAY PRN, diphenhydrAMINE Q4H PRN, EPINEPHrin e PF Q5 MIN PRN, ondansetron (ZOFRAN) IV Q6H PRN, oxyCODONE Q4H PRN Objective: Vital Signs: Last Filed Vital Signs: 24 Tiffany r Range BP: 154/72 (02/18 1351) Temp: 36.2 C (97.2 F) (02/18 1351) Pulse: 83 (02/18 1351) Respirations: 18 PER MINUTE (02/18 1351) SpO2: 92 % (02/18 1351) BP: (113-157)/(52-79) Temp: [36.2 C (97.2 F)-37.3 C (99.2 F)] Pulse: [81-96] Respirations: [18 PER MINUTE] SpO2: [92 %-94 %] Intensity Pain Scale (Self Report): 4 (02/17/212041) Vitals: 02/13/21 2253 Weight: 105 kg (231 lb 7.7 oz) Intake/Output Summary: (Last 24 hours) Intake/Output Summary (Last 24 hours) at 02/18/2021 1735 Last data filed at 02/18/2021 1419 Gross per 24 hour Intake 580 ml Output 1100 ml Net -520 ml Stool Occurrence: 1 Physical Exam General appearance: cooperative and no distress Respiratory: clear to auscultation bilaterally, no wheezing or rales Cardiovascular: regular rate and rhythm, S1, S2 normal, no murmur or gallop GI: Abdomen: soft, non distended, non-tender, bowel sounds are present Extremities: moves all limbs, right thigh incision site with mild edema Genitourinary: no bladder distension Skin: dry, no rashes Neurologic: Alert, awake and oriented X 4, normal speech, normal strength and to ne Psych: normal mood, affect and insight Lab Review 24-hour labs: Results for orders placed or performed during the hospital encounter of 02/13/21 (from the past 24 hour(s)) CBC Collection Time: 02/18/21 5:09 AM Result Value Ref Range White Blood Cells 7.2 4.5 - 11.0 K/UL RBC 2.09 (L) 4.0 - 5.0 M/UL Hemoglobin 7.2 (L) 12.0 - 15.0 GM/DL Hematocrit 20.5 (L) 36 - 45 % MCV 98.4 80 - 100 FL MCH 34.7 (H) 26 - 34 PG MCHC 35.3 32.0 - 36.0 G/DL RDW 13.1 11 - 15 % Platelet Count 175 150 - 400 K/UL MPV 8.0 7 - 11 FL COMPREHENSIVE METABOLIC PANEL Collection Time: 02/18/21 5:09 AM Result Value Ref Range Sodium 135 (L) 137 - 147 MMOL/L Potassium 3.8 3.5 - 5.1 MMOL/L Chloride 100 98 - 110 MMOL/L Glucose 114 (H) 70 - 100 MG/DL Blood Urea Nitrogen 16 7 - 25 MG/DL Creatinine 0.43 0.4 - 1.00 MG/DL Calcium 8.6 8.5 - 10.6 MG/DL Total Protein 5.6 (L) 6.0 - 8.0 G/DL Total Bilirubin 1.3 (H) 0.3 - 1.2 MG/DL Albumin 3.1 (L) 3.5 - 5.0 G/DL Alk Phosphatase 86 25 - 110 U/L AST (SGOT) 19 7 - 40 U/L CO2 28 21 - 30 MMOL/L ALT (SGPT) 12 7 - 56 U/L Anion Gap 7 3 - 12 eGFR Non >60 >60 mL/min eGFR >60 >60 mL/min MAGNESIUM Collection Time: 02/18/21 5:09 AM Result Value Ref Range Magnesium 2.0 1.6 - 2.6 mg/dL PHOSPHORUS Collection Time: 02/18/21 5:09 AM Result Value Ref Range Phosphorus 2.8 2.0 - 4.5 MG/DL Point of Care Testing (Last 24 hours) Glucose: (!) 114 (02/18/21 0509) Radiology and other Diagnostics Review: No pertinent radiology. Kwesi Huynh MD Pager: # [phone] * Komal Ashford - 02/18/2021 10:04 AM CDT PHYSICAL THERAPY NOTE Name: West Cerna : 1935 A ge: 85 y.o. Admission Date: 02/13/2021 LOS: 5 days Pt was sleeping soundly upon my arrival to room. Unable to wake pt up despite l oud verbal stimulus and sternal rub. RN present and aware, reporting pt did not sleep well last night. Will continue to follow and provide physical therapy in terventions as indicated. Therapist: Komal Ashford Date: 02/18/2021 * Nora Hartman APRN-NP - 02/18/2021 8:40 AM CDT ORTHO FINAL RECS: -Leave dressings in place until follow up appointment. If any new drainage seen or concerns for infection, please contact Dr. Barlow's office @ [phone]. -Weight Bearing as tolerated to right lower extremity. -Do not get incisions wet. Keep dressings dry. Sponge bathe until follow up appo intment. -Follow up appointment needed with the orthopedics clinic with Dr. Barlow or va ariadna Willis, please call [phone] or [phone] to schedule/confirm this appointment. -Lovenox recommended x 3 weeks until follow appointment.Ok with therapeutic dosi ng. Monitor CBC. Will need transition back to Xarelto after cleared by orthopedi cs outpatient in 2-3 weeks at initial post-op appt. Should you have a question or concern regarding your orthopedic care or injuries please call our nurse's line at [phone]. Our clinic is located on the 2nd floor of the [facility], across from the [facility]. The clinic address is [address] [place] [id number] Nora Hartman APRN Nurse Practitioner, Orthopedic Surgery Pager [phone] (MWTF, 6-4) * Azra Lawson APRN-NP - 02/18/2021 7:00 AM CDT Trauma Progress Note Today's Date: 02/18/2021 Hospital Day: Hospital Day: 6 HPI: West Cerna is a 85 y.o. F w/PMH of Afib on Xarelto, HTN, and RLS w jassi presented to as a trauma transfer 02/13/21 s/p fall. She reported that she was sitting in a chair when it slid out from under her and she landed on her R h ip. She denied head strike or LOC. She was unable to get up and had R hip pain. She was taken to [facility] where she was found to have a right subtrochanteric femur fracture. She was transferred for higher level of care. She was admitted to the trauma floor with Ortho and IM consults. She went to the OR 02/14 for CMN of her R hip. Overnight 02/14-02/15 she was found to have altered mental status wi th failure to follow commands or answer questions. She was stroke activated but had improvement in symptoms during CT. Neurology recommended LITIGATOR evaluation whic h she passed and was given a regular diet. She has returned to normal mental sta tus this morning. Assessment/ Plan: Method of injury: Fall Principal Problem: Trauma Active Problems: Fall Hip fracture (HCC) Class 2 severe obesity with serious comorbidity in adult (HCC) Atrial fibrillation, chronic (HCC) Chronic anticoagulation Essential hypertension Restless leg syndrome Impaired mobility and activities of daily living Acute traumatic pain Hypomagnesemia Frailty syndrome in geriatric patient Gait instability Neuro Acute pain due to trauma -- acetaminophen 650 mg q6h -- robaxin 750 mg tid -- oxycodone 5-15 mg q4h prn CV HDS. See VS summary below Afib, HTN -- rate controlled with INLETTER metoprolol -- resume Xarelto this PM Pulm Stable on RA. SpO2 96% Pulmonary toilet, encourage IS GI/FEN Regular diet Bowel regimen SLIV Zofran prn nausea Monitor and replace lytes prn UOP 850mL/24hrs Cr 0.43 (0.42) Heme/ID Acute blood loss anemia -- Hgb 7.2 (7.6). Hgb low, but no clinical signs of overt bleeding. Continue to trend serially. Optimize fluid balance. Monitor stools for signs of occult GI bl eeding. No leukocytosis, normothermic Endo No acute issues. Monitor and treat prn MSK R Subtrochanteric Femur Fx s/p CMN 02/14 -- ortho following -- WBAT RLE -- lovenox until follow-up -- f/u Heddings 2 weeks Impaired Mobility and ADLs -- PT/OT PPx SCDs, Xarelto Disp - continue inpatient care. PT/OT- needs inpatient placement- awaiting insur minor villaseñor SW/CM following for discharge planning needs. Patient discussed with Dr. Yañez during rounds. Subjective No acute overnight events. Pt reports she did not sleep well last night. States she is eating and drinking well. Discussed discharge planning with her and she w as asking where she is going. Plan of care discussed. Denies any further needs. Will continue to monitor. Objective: Physical Exam: General: awake, No apparent distress. alert Neuro: AOx3, no focal deficits HEENT: normocephalic, atraumatic, PERRLA CV: Irregular rate and rhythm, no murmur noted Resp: Clear to auscultation bilaterally. No wheeze, even and unlabored respirati ons Abdomen: soft, non tender and non distended, normal active bowel sounds Extremities: warm and well perfused, R hip surgical dressing in place, c/d/i, in creased ecchymosis proximal incision site Musc: Moves all extremities except RLE 2/2 injury Skin: warm and dry Vital Signs: (24 hours) BP: (125-157)/(52-79) Temp: [36.4 C (97.6 F)-37.3 C (99.2 F)] Pulse: [84-96] Respirations: [12 PER MINUTE-18 PER MINUTE] SpO2: [92 %-98 %] Intake/Output Summary: Intake/Output Summary (Last 24 hours) at 02/18/2021 0700 Last data filed at 02/18/2021 0441 Gross per 24 hour Intake 1540 ml Output 850 ml Net 690 ml Prophylaxis Review: Peptic Ulcer Disease: None: not indicated VTE: VTE: Mechanical prophylaxis: SCDs, Chemoprophylaxis: Xarelto Lines, Drains, and Airways: Lines, Drains, Airways and Wounds IV Peripheral IV 02/15/21 0603 Right Mid Upper Arm 18 G 3 days Drain External Urinary Catheter 02/16/21 1200 1 day Wound Wounds 02/14/21 1445 Left Leg 3 days Pertinent labs, medications, radiology, and diagnostic procedures reviewed inclu ding: active problem list, medication list, allergies, social history, health ma intenance, notes from last encounter, lab results, imaging Nutrition: No Dietitian Consult Wound: Wound Documentation Wounds 02/14/21 1445 Left Leg (Active) 02/14/21 1445 Leg Wound Type: Pressure Injury Stages: Pressure Injury Present On Inpatient Admission: Wound/Pressure Injury Orientation: Left Wound Location Comments: Wound Description (Comments): Wound Type:: Agree With My Assessment? Yes 02/18/21440 Wound Dressing Status Intact 02/17/212041 Wound Dressing and / or Treatment Gauze;Transparent (i.e. Tegaderm) 02/17/21 Wound Drainage Description Serosanguineous 02/17/212041 Wound Drainage Amount Moderate 02/17/212041 Wound Base Assessment Dressing intact, base not assessed 02/17/212041 Surrounding Skin Assessment Dry;Intact 02/17/212041 Wound Site Closure Wound Adhesive Bandage 02/17/212041 Number of days: 4 Azra Lawson APRN-PRICING/SIGNAGE TEAM MEMBER [id number] Trauma Floor Pager [phone] * Kwesi Huynh MD - 02/17/2021 2:26 PM CDT General Progress Note Name: West Cerna Today's Date: 02/17/2021 Admission Date: 02/13/2021 LOS: 4 days Assessment/Plan: Principal Problem: Trauma Active Problems: Fall Hip fracture (HCC) Class 2 severe obesity with serious comorbidity in adult (HCC) Atrial fibrillation, chronic (HCC) Chronic anticoagulation Essential hypertension Restless leg syndrome Impaired mobility and activities of daily living Acute traumatic pain Hypomagnesemia Frailty syndrome in geriatric patient Gait instability 85-year-old with past medical history of A. fib on Xarelto admitted as a trauma transfer after ground-level fall and sustained a right subtrochanteric femur fra cture on 02/13 Right hip fracture secondary to fall Status post ORIF 02/14 Patient reports that postoperative pain is adequately controlled with ATC Tyleno l and Robaxin, as needed oxycodone, Continue vitamin D3 and calcium supplementat ion, I encourage patient to discuss with her PCP after hospital discharge, to get a r eferral for DEXA scan in the next 3 months for osteoporosis screening Constipation, post op and opioids related, ordered miralax and SenakotS BID guanakito y, prn dulcolax suppository Acute blood loss anemia secondary to right hip fracture while on OAC and post op status, Hgb drifted down 7.6mg from normal, iron levels checked- low, ordered iv venofer infusion, threshold for transfusion if hgb <7gms Right leg weakness, improved CT head without contrast, CT angio head and neck showed no acute intracranial pa thology Permanent A. fib, rate controlled Continue metoprolol for rate control, continue Xarelto 20 mg at bedtime for prev ention of stroke Incidental finding CT a head and neck Hypodense right thyroid nodule. Thyroid ultrasound could be performed for furthe r evaluation if indicated as out patient. Check TSH and FT4 PT/OT is recommending placement to inpatient rehab, patient reported discussing with her son and she is interested in acute rehab in the vicinity of [facility] , social worker psychiatric is assisting the patient with placement Patient is medically optimized, primary team to discharge this patient when appr opriate Diet: Regular diet DVT prophylaxis: Xarelto Code Status: Full code Subjective West Cerna is a 85 y.o. female admitted for right hip fracture, patient is seen and examined bedside today who is sitting in hospital chair, endorses h er pain is adequately controlled, denies chest pain, shortness of breath or post ural dizziness, admits for not having bowel movement since Tuesday, passing flatu s. She appears mildly confused today compared to yesterday Medications Scheduled Meds:acetaminophen (TYLENOL) tablet 650 mg, 650 mg, Oral, Q6H* gentamicin 0.3 % ophthalmic solution 1 drop, 1 drop, Both Eyes, Q4H iron sucrose (VENOFER) 300 mg in sodium chloride 0.9% (NS) IVPB, 300 mg, Intrave nous, QDAY methocarbamoL (ROBAXIN) tablet 750 mg, 750 mg, Oral, TID metoprolol tartrate tablet 25 mg, 25 mg, Oral, BID milk of magnesia (CONC) oral suspension 10 mL, 10 mL, Oral, QDAY polyethylene glycol 3350 (MIRALAX) packet 17 g, 1 packet, Oral, QDAY rivaroxaban (XARELTO) tablet 20 mg, 20 mg, Oral, QDAY w/dinner senna/docusate (SENOKOT-S) tablet 1 tablet, 1 tablet, Oral, BID Continuous Infusions: PRN and Respiratory Meds:diphenhydrAMINE Q4H PRN, EPINEPHrine PF Q5 MIN PRN, ond ansetron (ZOFRAN) IV Q6H PRN, oxyCODONE Q4H PRN Objective: Vital Signs: Last Filed Vital Signs: 24 Tiffany r Range BP: 125/52 (02/18 820) Temp: 36.4 C (97.6 F) (02/18 820) Pulse: 92 (02/18 820) Respirations: 12 PER MINUTE (02/18 820) SpO2: 98 % (02/18 820) BP: (115-139)/(51-67) Temp: [36.4 C (97.6 F)-36.8 C (98.3 F)] Pulse: [63-92] Respirations: [12 PER MINUTE-18 PER MINUTE] SpO2: [93 %-98 %] Intensity Pain Scale (Self Report): 7 (02/17/21 0255) Vitals: 02/13/21 2253 Weight: 105 kg (231 lb 7.7 oz) Intake/Output Summary: (Last 24 hours) Intake/Output Summary (Last 24 hours) at 02/17/2021 1426 Last data filed at 02/17/2021 0900 Gross per 24 hour Intake 702 ml Output 900 ml Net -198 ml Stool Occurrence: 1 Physical Exam General appearance: cooperative and no distress Respiratory: clear to auscultation bilaterally, no wheezing or rales Cardiovascular: regular rate and rhythm, S1, S2 normal, no murmur or gallop GI: Abdomen: soft, non distended, non-tender, bowel sounds are present Extremities: moves all limbs, no redness or tenderness in the calves or thighs, no edema Genitourinary: no bladder distension Skin: dry, no rashes Neurologic: awake, oriented to place, person and situation, normal motor and ton e, delayed responses Psych: normal mood, affect and insight Lab Review 24-hour labs: Results for orders placed or performed during the hospital encounter of 02/13/21 (from the past 24 hour(s)) CBC Collection Time: 02/17/21 2:58 AM Result Value Ref Range White Blood Cells 7.0 4.5 - 11.0 K/UL RBC 2.26 (L) 4.0 - 5.0 M/UL Hemoglobin 7.6 (L) 12.0 - 15.0 GM/DL Hematocrit 21.9 (L) 36 - 45 % MCV 97.1 80 - 100 FL MCH 33.7 26 - 34 PG MCHC 34.7 32.0 - 36.0 G/DL RDW 13.2 11 - 15 % Platelet Count 142 (L) 150 - 400 K/UL MPV 8.1 7 - 11 FL COMPREHENSIVE METABOLIC PANEL Collection Time: 02/17/21 2:58 AM Result Value Ref Range Sodium 137 137 - 147 MMOL/L Potassium 3.7 3.5 - 5.1 MMOL/L Chloride 102 98 - 110 MMOL/L Glucose 119 (H) 70 - 100 MG/DL Blood Urea Nitrogen 14 7 - 25 MG/DL Creatinine 0.42 0.4 - 1.00 MG/DL Calcium 8.4 (L) 8.5 - 10.6 MG/DL Total Protein 5.5 (L) 6.0 - 8.0 G/DL Total Bilirubin 1.0 0.3 - 1.2 MG/DL Albumin 3.2 (L) 3.5 - 5.0 G/DL Alk Phosphatase 66 25 - 110 U/L AST (SGOT) 17 7 - 40 U/L CO2 28 21 - 30 MMOL/L ALT (SGPT) 10 7 - 56 U/L Anion Gap 7 3 - 12 eGFR Non >60 >60 mL/min eGFR >60 >60 mL/min MAGNESIUM Collection Time: 02/17/21 2:58 AM Result Value Ref Range Magnesium 1.9 1.6 - 2.6 mg/dL PHOSPHORUS Collection Time: 02/17/21 2:58 AM Result Value Ref Range Phosphorus 2.4 2.0 - 4.5 MG/DL Point of Care Testing (Last 24 hours) Glucose: (!) 119 (02/17/21 0258) Radiology and other Diagnostics Review: No pertinent radiology. Kwesi Huynh MD Pager: # [phone] * Izabella Mcneil, OT - 02/17/2021 10:30 AM CDT OCCUPATIONAL THERAPY PROGRESS NOTE Name: West Cerna : 1935 A ge: 85 y.o. Admission Date: 02/13/2021 LOS: 4 days Mobility Patient Turn/Position: Supine Progressive Mobility Level: Active transfer to chair Level of Assistance: Assist X2 Assistive Device: Walker Time Tolerated: 11-30 minutes Activity Limited By: Pain;Weakness;Patient request to stop Subjective Pertinent Dx per Physician: Fall from standing with proximal femur fx s/p CMN . Precautions: Standard;Falls R LE Precautions: RLE WBAT: Weight Bearing as Tolerated Pain / Complaints: Patient agrees to participate in therapy Pain Location: Right;Hip Pain Level Current: (does not rate) Objective Psychosocial Status: Participates in Therapy with Encouragement Persons Present: RehabTechnician (daugher in law) Home Living Type of Home: House Home Layout: (3 entry steps) Bathroom Shower / Tub: Walk-in Shower;Tub/Shower Unit (pt provided different inf o to PT/OT when OT was out of room) Bathroom Toilet: Raised Bathroom Equipment: Grab Bars in Shower;Shower Chair;Grab Bars Around Toilet Home Equipment: Cane (4 wheeled walker) Comment: Will need to clarify bathroom/shower setup with family. 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 Daughter in law there to provide a little assistance with subject jocelyne information. Daughter in law also mentioned pt having deepak foot/ankle orthoti cs but does not wear d/t discomfort. Patient denies when asked about these. Prior Function Level Of Fannin: Independent with ADLs and functional transfers Lives With: Spouse Vocational: Retired Other Function Comments: Lives with who is bed-bound on hospice with car egivers to provide his assistance. Pt reports being independent with ADLs, howev er therapist is unsure how safe pt was at baseline. Vision Current Vision: Wears Glasses All of the Time Comment: WFL for ADLs ADL's Where Assessed: Chair Grooming Assist: Stand By Assist Grooming Deficits: Setup LE Dressing Assist: Total Assist LE Dressing Deficits: Don/Doff R Sock;Don/Doff L Sock Comment: patient required moderate assist x2 for sit>stand and stand pivot trasnfer from chair to bed using RW, required assist to move R foot. patient back to bed at end of session. HOB elevated. completed grooming while sittng up in bed. ADL Mobility Bed Mobility: Supine to Sit: Moderate assist;x2 people Bed Mobility: Sit to Supine: x2 people;Maximum assist Transfer Type: Sit to stand Transfer: Assistance Level: Moderate assist;x2 people;Bedside chair;To;Bed Transfer: Assistive Device: Roller walker Transfer: Type of Assistance: For balance;For safety considerations;For strength deficit;Requires extra time;Verbal cues End of Activity Status: In bed;Instructed patient to request assist with mobilit y;Instructed patient to use call light;Nursing notified Sitting Balance: Standby assist Standing Balance: Minimal assist;x2 people Activity Tolerance Endurance: 2/5 Tolerates 10-20 Minutes Exercise w/Multiple Rests Cognition Overall Cognitive Status: WFL to Adequately Complete Self Care Tasks Safely Assessment Assessment: Decreased ADL Status;Decreased UE Strength;Decreased Endurance;Decre ased Self-Care Trans;Decreased High-Level ADLs Prognosis: Good;w/Cont OT s/p Acute Discharge Goal Formulation: Pt/family AM-PAC 6 Clicks Daily Activity Inpatient Putting on and taking off regular lower body clothes?: Total Bathing (Including washing, rinsing, drying): Total Toileting, which includes using toilet, bedpan, or urinal: Total Putting on and taking off regular upper body clothing: A Little Taking care of personal grooming such as brushing teeth: A Little Eating meals?: A Little Daily Activity Raw Score: 12 Standardized (t-scale) score: 30.6 CMS 0-100% Score: 66.57 CMS G Code Modifier: CL Plan OT Frequency: 5x/week OT Plan for Next Visit: ADLs seated EOB, progress mobility/transfers as able ADL Goals Patient Will Perform LE Dressing: w/ Moderate Assist;Revised (Modified due to la ck of progress) Patient Will Perform Toileting: w/ Maximum Assist;Revised (Modified due to lack of progress) Functional Transfer Goals Pt Will Perform All Functional Transfers: Minimum Assist, Revised (Modified due to lack of progress) Arm Goals Pt Will Complete Theraband Exer: B UE, Level 1 Theraband, 10 Reps, w/ Good Acti vity Tolerance OT Discharge Recommendations Recommendation: Inpatient setting Patient Currently Requires Equipment: None Comments: Inpatient recommended at this time due to need for heavy two person a ssist. May improve over course of hospitalization and becomd more appropriate f or possible DC home with extensive caregiver support Therapist: [place] [id number] Date: 02/17/2021 * Danna Davidson, PT - 02/17/2021 8:48 AM CDT PHYSICAL THERAPY PROGRESS NOTE Name: West Cerna : 1935 A ge: 85 y.o. Admission Date: 02/13/2021 LOS: 4 days Mobility Patient Turn/Position: Weight shifted (Bed);Chair Progressive Mobility Level: Active transfer to chair Level of Assistance: Assist X2 Assistive Device: Walker Time Tolerated: 11-30 minutes Activity Limited By: Pain;Weakness Subjective Significant hospital events: Fall from standing with proximal femur fx s/p CMN . Mental / Cognitive Status: Lethargic;Arousable;Cooperative;Follows Commands Persons Present: Nursing Staff Pain: Patient complains of pain;During activity Pain Location: Right;Hip Pain Description: Aching Pain Interventions: Patient agrees to participate in therapy;Pain decreased afte r treatment;Patient assisted into position of comfort R LE Precautions: RLE WBAT: Weight Bearing as Tolerated Ambulation Assist: Assist Needed with Mobility-Related ADL's/Ambulation (cane, s pouse's caregivers assist her too) Patient Owned Equipment: Single Point Cane;4-Wheeled Walker Home Situation: Lives with Family (spouse-caregivers, hospice services) Type of Home: House Entry Stairs: 3-5 Stairs (3; may be ramp in the back) In-Home Stairs: Able to Live on One Level Comments: Per pt she does not have any braces. Per [id number] pt has bilat eral ankle braces but does not wear them (AFOs?). Bed Mobility/Transfer Bed Mobility: Supine to Sit: Moderate Assist;Requires Extra Time;Safety Consider ations;Assist with R LE (assist with hips) Transfer Type: Sit to/from Stand Transfer: Assistance Level: To/From;Bed;Minimal Assist;x2 People Transfer: Assistive Device: Roller Walker Transfers: Type Of Assistance: Elevated Bed;For Safety Considerations;Requires E xtra Time Other Transfer Type: Sit to/from Stand;Stand Pivot Other Transfer: Assistance Level: From;Bed;To;Bed Side Chair;Moderate Assist;x2 People Other Transfer: Assistive Device: Roller Walker Other Transfer: Type Of Assistance: Verbal Cues;For Safety Considerations;Requir es Extra Time;For Balance;For Strength Deficit (facilitation of weightshift and walker management) End Of Activity Status: Up in Chair;Nursing Notified;Instructed Patient to Reque st Assist with Mobility;Instructed Patient to Use Call Light Comments: Patient with B foot drop (patient reports is baseline) and requires as sist for weightshift to RLE during transfer. Activity/Exercise Sit Edge Of Bed: 5 minutes Sit Edge Of Bed Assist: Stand By Assist Assessment/Progress Impaired Mobility Due To: Decreased Strength;Pain;Impaired Balance;Safety Concer ns;Deconditioning Impaired Strength Due To: Deconditioning;Post Surgical Changes Assessment/Progress: Should Improve w/ Continued PT Comments: Patient tolerates transfer to chair this date. Patient continuing to r equire 2 person assist for transfer. Patient benefits from continued therapy to address deficits. AM-PAC 6 Clicks Basic Mobility Inpatient Turning from your back to your side while in a flat bed without using bed rails: A lot Moving from lying on your back to sitting on the side of a flatbed without using bedrails : A Lot Moving to and from a bed to a chair (including a wheelchair): Total Standing up from a chair using your arms (e.g. wheelchair, or bedside chair): A Lot To walk in hospital room: Total Climbing 3-5 steps with a railing: Total Raw Score: 9 Standardized (T-scale) Score: 25.8 Basic Mobility CMS 0-100%: 77.59 CMS G Code Modifier for Basic Mobility: CL Goals Goal Formulation: With Patient/Family Time For Goal Achievement: 4 days Patient Will Go Supine To/From Sit: w/ Minimal Assist Patient Will Transfer Sit to Stand: w/ Minimal Assist Patient Will Ambulate: 11-30 Feet, w/ Walker, w/ Minimal Assist Plan Treatment Interventions: Mobility Training;Strengthening Plan Frequency: 5-7 Days per Week PT Plan for Next Visit: bed mobility, transfer training (stand pivots to chair w ith RW), RLE strengthening PT Discharge Recommendations Recommendation: Inpatient setting Patient Currently Requires Physical Assist With: All mobility Comments: Recommended inpatient setting at this time since patient will be an as sist of two for transfer to a chair Therapist: Danna Davidson, PT Date: 02/17/2021 * Gaston West PA-C - 02/17/2021 7:10 AM CDT Trauma Progress Note Today's Date: 02/17/2021 Hospital Day: Hospital Day: 5 HPI: West Cerna is a 85 y.o. F w/PMH of Afib on Xarelto, HTN, and RLS w ho presented to as a trauma transfer 02/13/21 s/p fall. She reported that she was sitting in a chair when it slid out from under her and she landed on her R h ip. She denied head strike or LOC. She was unable to get up and had R hip pain. She was taken to [facility] where she was found to have a right subtrochanteric femur fracture. She was transferred for higher level of care. She was admitted to the trauma floor with Ortho and IM consults. She went to the OR 02/14 for CMN of her R hip. Overnight 02/14-02/15 she was found to have altered mental status wi th failure to follow commands or answer questions. She was stroke activated but had improvement in symptoms during CT. Neurology recommended LITIGATOR evaluation whic h she passed and was given a regular diet. She has returned to normal mental sta tus this morning. Assessment/ Plan: Method of injury: Fall Principal Problem: Trauma Active Problems: Fall Hip fracture (HCC) Class 2 severe obesity with serious comorbidity in adult ([facility]) Atrial fibrillation, chronic ([facility]) Chronic anticoagulation Essential hypertension Restless leg syndrome Impaired mobility and activities of daily living Acute traumatic pain Hypomagnesemia Frailty syndrome in geriatric patient Gait instability Neuro Acute pain due to trauma -- acetaminophen 650 mg q6h -- robaxin 750 mg tid -- oxycodone 5-15 mg q4h prn CV HDS. See VS summary below Afib, HTN -- rate controlled with INLETTER metoprolol -- resume Xarelto this PM Pulm Stable on RA. SpO2 96% Pulmonary toilet, encourage IS GI/FEN Regular diet Bowel regimen SLIV Zofran prn nausea Monitor and replace lytes prn UOP 900mL/24hrs Cr 0.42(0.47) Heme/ID Acute blood loss anemia -- Hgb 7.6(7.8). Hgb low, but no clinical signs of overt bleeding. Continue to t rend serially. Optimize fluid balance. Monitor stools for signs of occult GI ble eding. No leukocytosis, normothermic Endo No acute issues. Monitor and treat prn MSK R Subtrochanteric Femur Fx s/p CMN 02/14 -- ortho following -- WBAT RLE -- lovenox until follow-up -- f/u [facility] 2 weeks Impaired Mobility and ADLs -- PT/OT PPx SCDs, Xarelto Disp - continue inpatient care. Anticipate PT/OT to recommend inpatient. SW/CM following for discharge planning needs. Patient discussed with Dr. Yañez during rounds. Subjective Pt states no overnight events. States pain well controlled at this time. Has bee n working with PT/ States pain comes and goes. Tolerating diet. Tolerating diet . Pain well controlled on current regimen. . Denies CP, SOB,n/v/d, abdominal priyank n, diarrhea Objective: Physical Exam: General: awake, NAD Neuro: AOx3, no focal deficits HEENT: normocephalic, atraumatic CV: Irregularly irregular Resp: CTAB. No wheeze Abdomen: soft, NT/ND, purewick in place Extremities: warm and well perfused, R hip surgical dressing in place, c/d/i, in creased ecchymosis proximal incision site Musc: MAEW except RLE 2/2 injury Skin: warm and dry Vital Signs: (24 hours) BP: (115-141)/(51-70) Temp: [36.6 C (97.9 F)-37.1 C (98.8 F)] Pulse: [63-97] Respirations: [16 PER MINUTE-18 PER MINUTE] SpO2: [93 %-96 %] Intake/Output Summary: Intake/Output Summary (Last 24 hours) at 02/17/2021 0710 Last data filed at 02/17/2021 0400 Gross per 24 hour Intake 222 ml Output 1250 ml Net -1028 ml Prophylaxis Review: Peptic Ulcer Disease: None: not indicated VTE: VTE: Mechanical prophylaxis: SCDs, Chemoprophylaxis: Xarelto Lines, Drains, and Airways: Lines, Drains, Airways and Wounds IV Peripheral IV 02/13/21 2250 Right Hand 20 G 3 days Peripheral IV 02/15/21 0603 Right Mid Upper Arm 18 G 2 days Drain External Urinary Catheter 02/16/21 1200 <1 day Wound Wounds 02/14/21 1445 Left Leg 2 days Pertinent labs, medications, radiology, and diagnostic procedures reviewed inclu ding: active problem list, medication list, allergies, social history, health ma intenance, notes from last encounter, lab results, imaging Nutrition: No Dietitian Consult Wound: Wound Documentation Wounds 02/14/21 1445 Left Leg (Active) 02/14/21 1445 Leg Wound Type: Pressure Injury Stages: Pressure Injury Present On Inpatient Admission: Wound/Pressure Injury Orientation: Left Wound Location Comments: Wound Description (Comments): Wound Type:: Agree With My Assessment? Yes 02/17/21 0400 Wound Dressing Status Intact 02/16/211999 Wound Dressing and / or Treatment Gauze;Transparent (i.e. Tegaderm) 02/16/21 200 0 Wound Drainage Description Serosanguineous 02/16/211999 Wound Drainage Amount Scant 02/16/211999 Wound Base Assessment Dressing intact, base not assessed 02/16/211999 Surrounding Skin Assessment Dry;Intact 02/16/211999 Wound Site Closure Wound Adhesive Bandage 02/16/21 0800 Number of days: 3 Gaston West PA-C [id number] Trauma Floor Pager [phone] * Kwesi Huynh MD - 02/16/2021 3:49 PM CDT General Progress Note Name: West Cerna Today's Date: 02/16/2021 Admission Date: 02/13/2021 LOS: 3 days Assessment/Plan: Principal Problem: Trauma Active Problems: Fall Hip fracture (HCC) Class 2 severe obesity with serious comorbidity in adult (HCC) Atrial fibrillation, chronic (HCC) Chronic anticoagulation Essential hypertension Restless leg syndrome Impaired mobility and activities of daily living Acute traumatic pain Hypomagnesemia Frailty syndrome in geriatric patient Gait instability 85-year-old with past medical history of A. fib on Xarelto admitted as a trauma transfer after ground-level fall and sustained a right subtrochanteric femur fra cture on 02/13 Right hip fracture secondary to fall Status post ORIF 02/14 patient reports her postoperative pain is adequately controlled Continue vitamin D3 and calcium supplementation, PT/OT, management per orthopedics, continue Tylenol, oxycodone IR and Robaxin encourage patient to discuss with PCP to get DEXA scan in the next 3 months to s creen osteoporosis Right leg weakness, improved CT head without contrast, CT angio head and neck showed no acute intracranial pa thology Permanent A. fib, rate controlled Continue metoprolol for rate control, continue Xarelto 20 mg at bedtime for prev ention of stroke Incidental finding CT a head and neck Hypodense right thyroid nodule. Thyroid ultrasound could be performed for furthe r evaluation if indicated Diet: Regular diet DVT prophylaxis: Xarelto Code Status: Full code Dispo: Due to problems mentioned in my assessment and plan, patient need additio nal hospitalization. Therapy recommending inpatient at discharge Subjective West Cerna is a 85 y.o. female. Patient is seen and examined bedside, reports postoperative pain in her right hip this adequately controlled, no new c oncerns Medications Scheduled Meds:acetaminophen (TYLENOL) tablet 650 mg, 650 mg, Oral, Q6H* gentamicin 0.3 % ophthalmic solution 1 drop, 1 drop, Both Eyes, Q4H methocarbamoL (ROBAXIN) tablet 750 mg, 750 mg, Oral, TID metoprolol tartrate tablet 25 mg, 25 mg, Oral, BID polyethylene glycol 3350 (MIRALAX) packet 17 g, 1 packet, Oral, QDAY rivaroxaban (XARELTO) tablet 20 mg, 20 mg, Oral, QDAY w/dinner senna/docusate (SENOKOT-S) tablet 1 tablet, 1 tablet, Oral, BID Continuous Infusions: PRN and Respiratory Meds:ondansetron (ZOFRAN) IV Q6H PRN, oxyCODONE Q4H PRN Objective: Vital Signs: Last Filed Vital Signs: 24 Itffany r Range BP: 141/70 (02/17 824) Temp: 37.1 C (98.8 F) (02/17 824) Pulse: 97 (02/17 824) Respirations: 16 PER MINUTE (02/17 824) SpO2: 96 % (02/17 824) BP: (105-142)/(55-70) Temp: [36.8 C (98.3 F)-37.2 C (99 F)] Pulse: [79-97] Respirations: [16 PER MINUTE-18 PER MINUTE] SpO2: [96 %] Vitals: 02/13/21 2253 Weight: 105 kg (231 lb 7.7 oz) Intake/Output Summary: (Last 24 hours) Intake/Output Summary (Last 24 hours) at 02/16/2021 1550 Last data filed at 02/16/2021 1200 Gross per 24 hour Intake 100 ml Output 2100 ml Net -2000 ml Physical Exam General appearance: cooperative and no distress Respiratory: clear to auscultation bilaterally, no wheezing or rales Cardiovascular: regular rate and rhythm, S1, S2 normal, no murmur or gallop GI: Abdomen: soft, non distended, non-tender, bowel sounds are present Extremities: moves all limbs, no edema, moving both legs, gait not tested Genitourinary: no bladder distension Skin: dry, no rashes Neurologic: Alert, awake and oriented X 4, normal speech, normal strength and to ne Psych: normal mood, affect and insight Lab Review 24-hour labs: Results for orders placed or performed during the hospital encounter of 02/13/21 (from the past 24 hour(s)) CBC Collection Time: 02/16/21 4:18 AM Result Value Ref Range White Blood Cells 8.2 4.5 - 11.0 K/UL RBC 2.31 (L) 4.0 - 5.0 M/UL Hemoglobin 7.8 (L) 12.0 - 15.0 GM/DL Hematocrit 22.5 (L) 36 - 45 % MCV 97.7 80 - 100 FL MCH 33.7 26 - 34 PG MCHC 34.5 32.0 - 36.0 G/DL RDW 13.2 11 - 15 % Platelet Count 138 (L) 150 - 400 K/UL MPV 9.0 7 - 11 FL COMPREHENSIVE METABOLIC PANEL Collection Time: 02/16/21 4:18 AM Result Value Ref Range Sodium 136 (L) 137 - 147 MMOL/L Potassium 4.5 3.5 - 5.1 MMOL/L Chloride 101 98 - 110 MMOL/L Glucose 109 (H) 70 - 100 MG/DL Blood Urea Nitrogen 15 7 - 25 MG/DL Creatinine 0.47 0.4 - 1.00 MG/DL Calcium 8.0 (L) 8.5 - 10.6 MG/DL Total Protein 5.4 (L) 6.0 - 8.0 G/DL Total Bilirubin 0.7 0.3 - 1.2 MG/DL Albumin 3.0 (L) 3.5 - 5.0 G/DL Alk Phosphatase 56 25 - 110 U/L AST (SGOT) 25 7 - 40 U/L CO2 29 21 - 30 MMOL/L ALT (SGPT) 9 7 - 56 U/L Anion Gap 6 3 - 12 eGFR Non >60 >60 mL/min eGFR >60 >60 mL/min MAGNESIUM Collection Time: 02/16/21 4:18 AM Result Value Ref Range Magnesium 1.9 1.6 - 2.6 mg/dL PHOSPHORUS Collection Time: 02/16/21 4:18 AM Result Value Ref Range Phosphorus 2.2 2.0 - 4.5 MG/DL IRON + BINDING CAPACITY + %SAT+ FERRITIN Collection Time: 02/16/21 4:18 AM Result Value Ref Range Iron 48 (L) 50 - 160 MCG/DL Iron Binding-TIBC 313 270 - 380 MCG/DL % Saturation 15 (L) 28 - 42 % Ferritin 282 (H) 10 - 200 NG/ML Point of Care Testing (Last 24 hours) Glucose: (!) 109 (02/16/21 5646) Radiology and other Diagnostics Review: EKG Reviewed Kwesi Huynh MD Pager: # [phone] * Mikala Moise OT - 02/16/2021 3:03 PM CDT OCCUPATIONAL THERAPY NOTE Name: West Cerna : 1935 A ge: 85 y.o. Admission Date: 02/13/2021 LOS: 3 days Patient asleep upon OT arrival. With max encouragement and attempts to awake pat ient, patient unable to sustain alertness for therapy session at this time. RN n otified. Occupational therapy will continue to follow and provide intervention as indicated. Therapist: JACQUES Chung/Areli Date: 02/16/2021 * Danna Davidson PT - 02/16/2021 10:26 AM CDT PHYSICAL THERAPY PROGRESS NOTE Name: [place] Cerna : 1935 A ge: 85 y.o. Admission Date: 02/13/2021 LOS: 3 days Mobility Patient Turn/Position: Left;Weight shifted (Bed) Progressive Mobility Level: Stand Assistive Device: Walker Time Tolerated: 11-30 minutes Activity Limited By: Pain;Weakness Subjective Significant hospital events: Fall from standing with proximal femur fx s/p CMN . Mental / Cognitive Status: Alert;Oriented;Cooperative Persons Present: Nursing Staff (at end of session) Pain: Patient complains of pain;Patient does not rate pain Pain Location: Right;Hip Pain Interventions: Patient agrees to participate in therapy;Patient assisted in to position of comfort R LE Precautions: RLE WBAT: Weight Bearing as Tolerated Ambulation Assist: Assist Needed with Mobility-Related ADL's/Ambulation (ariadna steven's caregivers assist her too) Patient Owned Equipment: Single Point Cane;4-Wheeled Walker Home Situation: Lives with Family (spouse-caregivers, hospice services) Type of Home: House Entry Stairs: 3-5 Stairs (3; may be ramp in the back) In-Home Stairs: Able to Live on One Level Comments: Per pt she does not have any braces. Per [id number] pt has bilat eral ankle braces but does not wear them (AFOs?). Bed Mobility/Transfer Bed Mobility: Supine to Sit: Moderate Assist;Requires Extra Time;Safety Consider ations;Assist with R LE Bed Mobility: Sit to Supine: Moderate Assist;Requires Extra Time;Safety Consider ations;Assist with R LE Comments: Ax2 for boost in bed at end of session Transfer Type: Sit to/from Stand Transfer: Assistance Level: To/From;Bed;Moderate Assist Transfer: Assistive Device: Roller Walker Transfers: Type Of Assistance: Elevated Bed;For Safety Considerations;Requires E xtra Time End Of Activity Status: In Bed;Nursing Notified;Instructed Patient to Request As sist with Mobility;Instructed Patient to Use Call Light Comments: Patient with difficulty with side steps towards head of bed with RW. Activity/Exercise Sit Edge Of Bed: 4 minutes Sit Edge Of Bed Assist: Stand By Assist Assessment/Progress Impaired Mobility Due To: Decreased Strength;Pain;Impaired Balance;Safety Concer ns;Deconditioning Impaired Strength Due To: Deconditioning;Post Surgical Changes Assessment/Progress: Should Improve w/ Continued PT Comments: Patient with improved bed mobility this date but continues to have dif ficulty with transfers. Patient benefits from continued therapy to address defic its. AM-PAC 6 Clicks Basic Mobility Inpatient Turning from your back to your side while in a flat bed without using bed rails: A lot Moving from lying on your back to sitting on the side of a flatbed without using bedrails : A Lot Moving to and from a bed to a chair (including a wheelchair): Total Standing up from a chair using your arms (e.g. wheelchair, or bedside chair): A Lot To walk in hospital room: Total Climbing 3-5 steps with a railing: Total Raw Score: 9 Standardized (T-scale) Score: 25.8 Basic Mobility CMS 0-100%: 77.59 CMS G Code Modifier for Basic Mobility: CL Goals Goal Formulation: With Patient/Family Time For Goal Achievement: 4 days Patient Will Go Supine To/From Sit: w/ Minimal Assist Patient Will Transfer Sit to Stand: w/ Minimal Assist Patient Will Ambulate: 11-30 Feet, w/ Walker, w/ Minimal Assist Plan Treatment Interventions: Mobility Training;Strengthening Plan Frequency: 5-7 Days per Week PT Plan for Next Visit: sit to stands, bed to chair transfer with Ax2 (may need tacho sling for return transfer?) PT Discharge Recommendations Recommendation: Inpatient setting Patient Currently Requires Physical Assist With: All mobility Comments: Recommended inpatient setting at this time since patient will be an as sist of two for transfer to a chair Therapist: Danna Davidson, PT Date: 02/16/2021 * Gaston West PA-C - 02/16/2021 7:12 AM CDT Trauma Progress Note Today's Date: 02/16/2021 Hospital Day: Hospital Day: 4 HPI: West Cerna is a 85 y.o. F w/PMH of Afib on Xarelto, HTN, and RLS w ho presented to as a trauma transfer 02/13/21 s/p fall. She reported that she was sitting in a chair when it slid out from under her and she landed on her R h ip. She denied head strike or LOC. She was unable to get up and had R hip pain. She was taken to [facility] where she was found to have a right subtrochanteric femur fracture. She was transferred for higher level of care. She was admitted to the trauma floor with Ortho and IM consults. She went to the OR 02/14 for CMN of her R hip. Overnight 02/14-02/15 she was found to have altered mental status wi th failure to follow commands or answer questions. She was stroke activated but had improvement in symptoms during CT. Neurology recommended LITIGATOR evaluation whic h she passed and was given a regular diet. She has returned to normal mental sta tus this morning. Assessment/ Plan: Method of injury: Fall Principal Problem: Trauma Active Problems: Fall Hip fracture (HCC) Class 2 severe obesity with serious comorbidity in adult (HCC) Atrial fibrillation, chronic (HCC) Chronic anticoagulation Essential hypertension Restless leg syndrome Impaired mobility and activities of daily living Acute traumatic pain Hypomagnesemia Frailty syndrome in geriatric patient Gait instability Neuro Acute pain due to trauma -- acetaminophen 650 mg q6h -- robaxin 750 mg tid -- oxycodone 5-15 mg q4h prn CV HDS. See VS summary below Afib, HTN -- rate controlled with INLETTER metoprolol -- resume Xarelto this PM Pulm Stable on RA. SpO2 96% Pulmonary toilet, encourage IS GI/FEN Regular diet Bowel regimen SLIV Zofran prn nausea Monitor and replace lytes prn Flores catheter in place, remove today UOP 2L/24hrs Cr 0.47(0.67) Heme/ID Acute blood loss anemia -- Hgb 7.8(10.1). Hgb low, but no clinical signs of overt bleeding. Continue to trend serially. Optimize fluid balance. Monitor stools for signs of occult GI bl eeding. No leukocytosis, normothermic Endo No acute issues. Monitor and treat prn MSK R Subtrochanteric Femur Fx s/p CMN 02/14 -- ortho following -- WBAT RLE -- lovenox until follow-up -- f/u Heddings 2 weeks Impaired Mobility and ADLs -- PT/OT PPx SCDs, Xarelto Disp - continue inpatient care. Anticipate PT/OT to recommend inpatient. SW/CM following for discharge planning needs. Patient discussed with Dr. Yañez during rounds. Subjective Pt states no overnight events. States pain comes and goes. Hasn't worked with PT yet but eager to progress. Tolerating diet. Pain well controlled on current reg imen. . Denies CP, SOB,n/v/d, abdominal pain, diarrhea Objective: Physical Exam: General: awake, NAD Neuro: AOx3, no focal deficits HEENT: normocephalic, atraumatic CV: S1S2, RRR Resp: CTAB. No wheeze Abdomen: soft, NT/ND Extremities: warm and well perfused, R hip surgical dressing in place, c/d/i Musc: MAEW except RLE 2/2 injury Skin: warm and dry Vital Signs: (24 hours) BP: (105-142)/(55-70) Temp: [36.2 C (97.2 F)-37.2 C (99 F)] Pulse: [79-91] Respirations: [16 PER MINUTE-18 PER MINUTE] SpO2: [96 %-100 %] Intake/Output Summary: Intake/Output Summary (Last 24 hours) at 02/16/2021 0712 Last data filed at 02/16/2021 0533 Gross per 24 hour Intake 100 ml Output 2005 ml Net -1905 ml Prophylaxis Review: Peptic Ulcer Disease: None: not indicated VTE: VTE: Mechanical prophylaxis: SCDs, Chemoprophylaxis: Xarelto Lines, Drains, and Airways: Lines, Drains, Airways and Wounds IV Peripheral IV 02/13/21 2250 Right Hand 20 G 2 days Peripheral IV 02/15/21 0603 Right Mid Upper Arm 18 G 1 day Drain Indwelling Urinary Catheter 02/13/21 2319 12 FR 2 days Wound Wounds 02/14/21 1445 Left Leg 1 day Pertinent labs, medications, radiology, and diagnostic procedures reviewed inclu ding: active problem list, medication list, allergies, social history, health ma intenance, notes from last encounter, lab results, imaging Nutrition: No Dietitian Consult Wound: Wound Documentation Wounds 02/14/21 1445 Left Leg (Active) 02/14/21 1445 Leg Wound Type: Pressure Injury Stages: Pressure Injury Present On Inpatient Admission: Wound/Pressure Injury Orientation: Left Wound Location Comments: Wound Description (Comments): Wound Type:: Wound Dressing Status Intact 02/15/212126 Wound Dressing and / or Treatment Gauze;Transparent (i.e. Tegaderm) 02/15/21 7 Wound Drainage Amount None 02/15/212126 Wound Base Assessment Dressing intact, base not assessed 02/15/212126 Surrounding Skin Assessment Dry;Intact 02/15/212126 Number of days: 2 Gaston West PA-C [id number] Trauma Floor Pager [phone] * Federica June APRN-JUSTIN - 02/15/2021 5:17 PM CDT Trauma Progress Note Today's Date: 02/15/2021 Hospital Day: Hospital Day: 3 HPI: [place] Cerna is a 85 y.o. F w/PMH of Afib on Xarelto, HTN, and RLS w ho presented to as a trauma transfer 02/13/21 s/p fall. She reported that she was sitting in a chair when it slid out from under her and she landed on her R h ip. She denied head strike or LOC. She was unable to get up and had R hip pain. She was taken to [facility] where she was found to have a right subtrochanteric femur fracture. She was transferred for higher level of care. She was admitted to the trauma floor with Ortho and IM consults. She went to the OR 02/14 for CMN of her R hip. Overnight 02/14-02/15 she was found to have altered mental status wi th failure to follow commands or answer questions. She was stroke activated but had improvement in symptoms during CT. Neurology recommended LITIGATOR evaluation whic h she passed and was given a regular diet. She has returned to normal mental sta tus this morning. Assessment/ Plan: Method of injury: Fall Principal Problem: Trauma Active Problems: Fall Hip fracture (HCC) Class 2 severe obesity with serious comorbidity in adult (HCC) Atrial fibrillation, chronic (HCC) Chronic anticoagulation Essential hypertension Restless leg syndrome Impaired mobility and activities of daily living Acute traumatic pain Hypomagnesemia Frailty syndrome in geriatric patient Gait instability Neuro Acute pain due to trauma -- acetaminophen 650 mg q6h -- robaxin 750 mg tid -- oxycodone 5-15 mg q4h prn CV HDS. See VS summary below Afib, HTN -- rate controlled with INLETTER metoprolol -- resume Xarelto this PM Pulm Stable on RA. SpO2 96-100% Pulmonary toilet, encourage IS GI/FEN Regular diet Bowel regimen SLIV Zofran prn nausea Monitor and replace lytes prn Flores catheter in place, remove today UOP 1.1L/24hrs Cr 0.67 (0.54) Heme/ID Acute blood loss anemia -- Hgb 10.1 (12.00. Hgb low, but no clinical signs of overt bleeding. Continue t o trend serially. Optimize fluid balance. Monitor stools for signs of occult GI bleeding. No leukocytosis, normothermic Endo No acute issues. Monitor and treat prn MSK R Subtrochanteric Femur Fx s/p CMN 02/14 -- ortho following -- WBAT RLE -- lovenox until follow-up -- f/u Heddings 2 weeks Impaired Mobility and ADLs -- PT/OT PPx SCDs, Xarelto Disp - continue inpatient care. Anticipate PT/OT to recommend inpatient. SW/CM following for discharge planning needs. Patient discussed with Dr. Valdez during rounds. Subjective Stroke activated overnight with resolution of symptoms. Patient seen eating lunc h in bed. She reports pain is well controlled, denies n/v/d. Eating ok, some dec reased appetite. Reports that she and her have caregivers in the home. D enies n/v/d. Objective: Physical Exam: General: awake, NAD Neuro: AOx3, no focal deficits HEENT: normocephalic, atraumatic CV: S1S2, RRR Resp: CTAB. No wheeze Abdomen: soft, NT/ND Extremities: warm and well perfused, R hip surgical dressing in place, c/d/i Musc: MAEW except RLE 2/2 injury Skin: warm and dry Vital Signs: (24 hours) BP: (108-175)/(51-121) Temp: [36.2 C (97.2 F)-36.9 C (98.5 F)] Pulse: [86-123] Respirations: [18 PER MINUTE-20 PER MINUTE] SpO2: [92 %-100 %] Intake/Output Summary: Intake/Output Summary (Last 24 hours) at 02/15/2021 1718 Last data filed at 02/15/2021 1600 Gross per 24 hour Intake 0 ml Output 1005 ml Net -1005 ml Prophylaxis Review: Peptic Ulcer Disease: None: not indicated VTE: VTE: Mechanical prophylaxis: SCDs, Chemoprophylaxis: Xarelto Lines, Drains, and Airways: Lines, Drains, Airways and Wounds IV Peripheral IV 02/13/21 2250 Right Hand 20 G 1 day Peripheral IV 02/15/21 0603 Right Mid Upper Arm 18 G <1 day Drain Indwelling Urinary Catheter 02/13/21 2319 12 FR 1 day Wound Wounds 02/14/21 1445 Left Leg 1 day Pertinent labs, medications, radiology, and diagnostic procedures reviewed inclu ding: active problem list, medication list, allergies, social history, health ma intenance, notes from last encounter, lab results, imaging Nutrition: No Dietitian Consult Wound: Wound Documentation Wounds 02/14/21 1445 Left Leg (Active) 02/14/21 1445 Leg Wound Type: Pressure Injury Stages: Pressure Injury Present On Inpatient Admission: Wound/Pressure Injury Orientation: Left Wound Location Comments: Wound Description (Comments): Wound Type:: Wound Dressing Status Intact 02/15/21 0800 Wound Dressing and / or Treatment Gauze;Transparent (i.e. Tegaderm) 02/15/21 080 0 Wound Drainage Amount None 02/15/21 0800 Wound Base Assessment Dressing intact, base not assessed 02/15/21 08 Surrounding Skin Assessment Dry;Intact 02/15/21 0800 Number of days: 1 Federica JuneMIGUE-PRICING/SIGNAGE TEAM MEMBER [id number] Trauma Floor Pager [phone] Associated attestation - Darshan Valdez MD - 02/16/2021 12:46 AM CDT ATTESTATION I personally performed the haji portions of the E/M visit, discussed case with Nu rse Practitioner and concur with documentation of history, physical exam, assess ment, and treatment plan unless otherwise noted. Staff name: Darshan Valdez MD Date: 02/16/2021 * An Flores OT - 02/15/2021 1:18 PM CDT OCCUPATIONAL THERAPY ASSESSMENT NOTE Name: West Cerna : 1935 A ge: 85 y.o. Admission Date: 02/13/2021 LOS: 2 days Mobility Patient Turn/Position: Supine Progressive Mobility Level: Stand Level of Assistance: Assist X2 Assistive Device: Walker Time Tolerated: 11-30 minutes Activity Limited By: Pain;Weakness;Patient request to stop Subjective Pertinent Dx per Physician: Fall from standing with proximal femur fx s/p CMN . Precautions: Standard;Falls R LE Precautions: RLE WBAT: Weight Bearing as Tolerated Pain / Complaints: Patient agrees to participate in therapy Pain Location: Right;Hip Pain Level Current: (does not rate) Objective Psychosocial Status: Participates in Therapy with Encouragement Persons Present: Physical Therapist (verna in law) Home Living Type of Home: House Home Layout: (3 entry steps) Bathroom Shower / Tub: Walk-in Shower;Tub/Shower Unit (pt provided different inf o to PT/OT when OT was out of room) Bathroom Toilet: Raised Bathroom Equipment: Grab Bars in Shower;Shower Chair;Grab Bars Around Toilet Home Equipment: Cane (4 wheeled walker) Comment: Will need to clarify bathroom/shower setup with family. Pt somewhat a p stoney historian. Daughter in law there to provide a little assistance with subject jocelyne information. Daughter in law also mentioned pt having deepak foot/ankle orthoti cs but does not wear d/t discomfort. Patient denies when asked about these. Prior Function Level Of Fannin: Independent with ADLs and functional transfers Lives With: Spouse Vocational: Retired Other Function Comments: Lives with who is bed-bound on hospice with car egivers to provide his assistance. Pt reports being independent with ADLs, america er therapist is unsure how safe pt was at baseline. Vision Current Vision: Wears Glasses All of the Time Comment: WFL for ADLs ADL's Where Assessed: Edge of Bed;Supine, Bed Eating Assist: Minimal Assist Eating Deficits: Setup;Verbal Cueing;Increased Time to Complete LE Dressing Assist: Total Assist LE Dressing Deficits: Don/Doff R Sock;Don/Doff L Sock Toileting Assist: Total Assist Toileting Deficits: (flores, bedalma) Comment: Tolerated function ROM and strength testing seated EOB. Total assist fo r LB dressing and toileting aspects at this time. Completed sit to stand with mo derate assist x2. Able to take 1-2 steps with significant effort and increased t eugenie to clear deepak feet from floor. Requests to sit d/t fatigue. Did not further m obilize at this time for safety concerns. Returned to supine and then placed in chair mode with lunch setup. Requires assist with opening packages, etc. ADL Mobility Bed Mobility: Supine to Sit: Moderate assist;x2 people Bed Mobility: Sit to Supine: Moderate assist;x2 people Transfer Type: Sit to stand Transfer: Assistance Level: To/from;Bed;Moderate assist;x2 people Transfer: Assistive Device: Roller walker Transfer: Type of Assistance: For balance;For safety considerations;For strength deficit;Requires extra time;Verbal cues End of Activity Status: In bed;Instructed patient to request assist with mobilit y;Instructed patient to use call light;Nursing notified (chair mode) Sitting Balance: Standby assist Gait Distance: (1-2 steps) Gait: Assistance Level: Moderate assist;x2 people Gait: Assistive Device: Roller walker Activity Tolerance Endurance: 2/5 Tolerates 10-20 Minutes Exercise w/Multiple Rests Cognition Overall Cognitive Status: Confused Orientation: Alert & Oriented x4 Cognition Comment: Oriented x4 but with discrepancies with subjective informatio n. Unsure if this is confusion or if patient did not want to be forthcoming with certain home setup information. Able to follow directions without difficulty. I ncreased time for expression with somewhat flat affect. UE AROM Overall BUE AROM WNL: Yes Grasp: Bilateral Grasp Functional for Activity Sensory Overall Sensory: Pt Perceives Pressure in Both UEs in Gross Exam UE Strength / Tone Overall Strength / Tone: Right;Left;4/5 Education Persons Educated: Patient/Family Teaching Methods: Verbal Instruction;Demonstration Patient Response: Verbalized and Demo Understanding Topics: Role of OT, Goals for Therapy Goal Formulation: With Patient/Family Assessment Assessment: Decreased ADL Status;Decreased UE Strength;Decreased Endurance;Decre ased Self-Care Trans;Decreased High-Level ADLs Prognosis: Good;w/Cont OT s/p Acute Discharge Goal Formulation: Pt/family AM-PAC 6 Clicks Daily Activity Inpatient Putting on and taking off regular lower body clothes?: Total Bathing (Including washing, rinsing, drying): Total Toileting, which includes using toilet, bedpan, or urinal: Total Putting on and taking off regular upper body clothing: A Lot Taking care of personal grooming such as brushing teeth: A Little Eating meals?: A Little Daily Activity Raw Score: 11 Standardized (t-scale) score: 29.04 CMS 0-100% Score: 70.42 CMS G Code Modifier: CL Plan OT Frequency: 5x/week OT Plan for Next Visit: ADLs seated EOB, progress mobility/transfers as able ADL Goals Patient Will Perform All ADL's: w/ Stand By Assist Functional Transfer Goals Pt Will Perform All Functional Transfers: w/ Stand By Assist Arm Goals Pt Will Complete Theraband Exer: B UE, Level 1 Theraband, 10 Reps, w/ Good Acti vity Tolerance OT Discharge Recommendations Recommendation: Inpatient setting Patient Currently Requires Physical Assist With: All mobility;All personal care ADLs;All home functioning ADLs Comments: Inpatient recommended at this time due to need for heavy two person a ssist. May improve over course of hospitalization and becomd more appropriate f or possible DC home with extensive caregiver support Therapist: JACQUES Andino/Areli [id number] Date: 02/15/2021 * Tamar Slaughter, PT - 02/15/2021 1:18 PM CDT PHYSICAL THERAPY ASSESSMENT Name: [place] Cerna : 1935 A ge: 85 y.o. Admission Date: 02/13/2021 LOS: 2 days Mobility Patient Turn/Position: Supine Progressive Mobility Level: Stand Level of Assistance: Assist X2 Assistive Device: Walker Time Tolerated: 11-30 minutes Activity Limited By: Pain;Weakness;Patient request to stop Subjective Significant hospital events: Fall from standing with proximal femur fx s/p CMN . Mental / Cognitive Status: Alert;Oriented;Cooperative Persons Present: Occupational Therapist (yuliugher in law) Pain: Patient complains of pain (with movement) Pain Location: Right;Hip Pain Interventions: Patient agrees to participate in therapy;Treatment altered t o patient's pain tolerance R LE Precautions: RLE WBAT: Weight Bearing as Tolerated Ambulation Assist: Assist Needed with Mobility-Related ADL's/Ambulation (cane, s maria antonia's caregivers assist her too) Patient Owned Equipment: Single Point Cane;4-Wheeled Walker Home Situation: Lives with Family (spouse-caregivers, hospice services) Type of Home: House Entry Stairs: 3-5 Stairs (3; may be ramp in the back) In-Home Stairs: Able to Live on One Level Comments: Per pt she does not have any braces. Per icjafknr-av-eja pt has bilat eral ankle braces but does not wear them (AFOs?). Strength Strength Position Assessed: Supine;Seated Overall Strength: Generalized Weakness Strength Comment: bilateral foot drop with 0/5 dorsiflexion Bed Mobility/Transfer Bed Mobility: Supine to Sit: Moderate Assist;x2 People;Head of Bed Elevated;Use of Rail;Assist with B LE;Assist with Trunk Bed Mobility: Sit to Supine: Maximum Assist;x2 People Transfer Type: Sit to/from Stand Transfer: Assistance Level: To/From;Bed;Moderate Assist;x2 People Transfer: Assistive Device: Roller Walker Transfers: Type Of Assistance: Verbal Cues;For Strength Deficit;For Balance End Of Activity Status: In Bed;Nursing Notified;Instructed Patient to Request As sist with Mobility;Instructed Patient to Use Call Light (chair mode-set up with lunch tray) Gait Comments: Pt able to take 2 small side steps to left with RW and Moderate A x2, difficulty taking any step forward, pt fatigued and not safe to transfer to [facility] Education Persons Educated: Patient/Family Patient Barriers To Learning: None Noted Teaching Methods: Verbal Instruction Patient Response: Verbalized Understanding Topics: Plan/Goals of PT Interventions Assessment/Progress Impaired Mobility Due To: Decreased Strength;Pain;Impaired Balance;Safety Concer ns;Deconditioning Impaired Strength Due To: Deconditioning;Post Surgical Changes Assessment/Progress: Should Improve w/ Continued PT. Would likely benefit from use of AFOs if properly fit and pt willing to wear them. AM-PAC 6 Clicks Basic Mobility Inpatient Turning from your back to your side while in a flat bed without using bed rails: A lot Moving from lying on your back to sitting on the side of a flatbed without using bedrails : A Lot Moving to and from a bed to a chair (including a wheelchair): Total Standing up from a chair using your arms (e.g. wheelchair, or bedside chair): A Lot To walk in hospital room: Total Climbing 3-5 steps with a railing: Total Raw Score: 9 Standardized (T-scale) Score: 25.8 Basic Mobility CMS 0-100%: 77.59 CMS G Code Modifier for Basic Mobility: CL Goals Goal Formulation: With Patient/Family Time For Goal Achievement: 4 days Patient Will Go Supine To/From Sit: w/ Minimal Assist Patient Will Transfer Sit to Stand: w/ Minimal Assist Patient Will Ambulate: 11-30 Feet, w/ Walker, w/ Minimal Assist Plan Treatment Interventions: Mobility Training;Strengthening Plan Frequency: 5-7 Days per Week PT Plan for Next Visit: sit to stands, bed to chair as able (may need sling or s it to stand lift for return transfer) PT Discharge Recommendations Recommendation: Inpatient setting Recommendation for Therapy Post Discharge: Home health Patient Currently Requires Physical Assist With: All mobility Patient Currently Requires Equipment: Walker with wheels Comments: Inpatient recommended at this time due to need for heavy two person as sist. May improve over course of hospitalization and becomd more appropriate fo r possible DC home with extensive caregiver support. Patient requires the use of a walker with wheels to complete ADLs in the home in cluding meal preparation, ambulation to the bathroom for toileting, bathing and grooming, and safe home mobility. Patient is unable to complete these ADLs with a cane or crutch and can safely use the walker. Therapist Tamar Slaughter, PT Date 02/15/2021 * Courtney Mason MA,[facility]-LITIGATOR - 02/15/2021 9:15 AM CDT SPEECH-LANGUAGE PATHOLOGY CLINICAL SWALLOW ASSESSMENT Name: West Cerna : 1935 A ge: 85 y.o. Admission Date: 02/13/2021 LOS: 2 days Evaluation Summary Clinical swallow evaluation completed. Clinical Impression: Normal oral pharyngeal swallow, grossly timely oral stage a nd no clinical s/s present to suggest aspiration. Pt initially required verbal s timulation to maintain alertness, however as eval progressed alertness improved. Anticipated Improvement: w/ improvement in alertness Swallow Recommendations PO: Regular solids, Thin liquids Medications: As tolerated Supervision: 1:1 (can decrease as sustained alertness improves) Positioning: Upright 90 degrees or chair mode Swallow Strategies: Alternate liquids/solids Oral Hygiene: Complete oral care to minimize the risk of aspirating oral Speech therapy will sign off, please re-consult should needs arise. PO Presentation Presentations: Patient Fed Self Thin Liquid: Cup, Straw, Consecutive Swallows Other Consistencies: Puree, Mechanical soft solids, Regular solids Clinical Interpretation of Oral Stage Withdraw Bolus: Within functional limits Form Bolus: (WFL) Masticate Bolus: Within functional limits Transfer Bolus: Within functional limits Anterior Bolus Spillage: None Oral Residue: Throughout, Mild (regular solids) Improvement Observed With: Swallow strategies (liquid wash) Clinical Interpretation of Pharyngeal Stage Laryngeal Elevation: Suspected to be adequate (palpable) Signs / Symptoms Of Aspiration: No Pharyngeal Stage Summary*: Pt denies globus sensation Oral Mech Exam Lips: WFL Tongue: WFL Buccal: WFL Jaw: WFL Velopharynx: WFL Visceral Swallow: Timely Vocal Quality: WFL Volitional Cough: Weak (likely related to effort/lethargy) Dentition: (full upper, natural lower; adequate) Oral Mech Exam Summary*: On room air Pt alert and oriented to place, month, year, although increased response latency and self-corrections noted Attempted Swallow Strategies Alternate Solids/Liquids: Effective Objective Relevant Med Background: West Cerna is a 85 y.o. female with h/o HTN, RLS, and Afib RVR taken off anticoagulation this admission for R subtrochanteric hip fracture s/p surgical fixation 02/14/21 who presented with decreased level of consciousness and was not following nursing commands during vitals check and b lood draw. Patient was stroke activated. CT Head demonstrated no intracranial bl eed. CTA H/N negative for LVO. Handedness: Right Hearing: WFL Lives With: Spouse Receives Help From: None Needed Vocational: Retired Psychosocial Status: Participates in Therapy with Encouragement Persons Present: None Subjective Pain: Patient has no complaint of pain, Patient demonstrates no signs of pain Trach Presence: No Feeding Tube Present During Eval: None Nutrition Nutrition Prior To Hospitalization: Oral, Thin Liquids Current Form Of Nutrition: NPO, IV Fluids Education Persons Educated: Patient Barriers To Learning: Decreased Alertness Interventions: Staff Educated, Repetition of Instructions Teaching Methods: Verbal Topics: Dysphagia Patient Response: Verbalized Understanding Goal Formulation: With Patient Assessment/Prognosis Plan: Patient functioning at baseline - No further LITIGATOR therapy indicated at this time Prognosis: Good NOMS Dysphagia Ratin-Normal -Ability to eat indep not limited by swallow fun ction. Swallow safe/efficient for all consistencies. Compensatory strategies eff ectively used when needed. Speech Discharge Recommendations Recommendation: No further ST recommended at this time Therapist:Courtney Mason MA, L/CCC-LITIGATOR Voalte: [phone] Weekend pager: [phone] Date:02/15/2021 * Johnathan Zuleta DO - 02/15/2021 8:48 AM CDT Internal Medicine General Progress Note Name: West Cerna Today's Date: 02/15/2021 Admission Date: 02/13/2021 LOS: 2 days Assessment/Plan: Principal Problem: Trauma Active Problems: Fall Hip fracture (HCC) Class 2 severe obesity with serious comorbidity in adult (HCC) Atrial fibrillation, chronic (HCC) Chronic anticoagulation Essential hypertension Restless leg syndrome Impaired mobility and activities of daily living Acute traumatic pain Hypomagnesemia Frailty syndrome in geriatric patient Gait instability Reason for Consult: "Geriatric Trauma" Consult type: Opinion with orders Assessment/Plan Ms. West Cerna is a remarkably pleasant 85 y/o Female with a PMH of Atrial Fib rillation on AC, HTN, and RLS that presented after a ground level fall and was f ound to have R Subtrochanteric hip fracture and was transferred to for surgic al evaluation. Internal Medicine was consulted for Geriatric Trauma #R Subtrochanteric Hip Fracture - Occurred after ground level fall with no LOC - s/p surgical fixation 02/14 #Paroxsymal Atrial Fibrillation on AC #HTN - [id number]:4 for Age (2), Sex, HTN - Rate Controlled with Metoprolol Tartrate 25 BID and is on Rivaroxaban 20 mg da radha for AC -Appears to have gone into RVR in the manual qa tester with associated hypertension #Restless Leg Syndrome - Ropinirole 1.5 mg QHS #Delirium -Stroke activated on 02/15 with disorientation and patient not following commands -CT head as well as CTA head and neck revealed no evidence of CVA #Right thyroid nodule -CTA neck obtained during stroke activation revealed hypodense right thyroid nod ule Recommendations: > Would recommend resuming the patient's rivaroxaban to reduce her risk of stroke when felt safe from a surgery standpoint > Continue INLETTER metoprolol tartrate 25 mg twice daily. We will keep a close eye on blood pressures and heart rates throughout the day to titrate metoprolol, or add antihypertensives as needed > Will discontinue patient's INLETTER ropinirole for her restless leg to ensure this was not a confounder for the patient's episode this morning (ordered) > Would have patient have thyroid ultrasound as an outpatient by her primary care provider after discharge to assess thyroid nodule seen on CT neck Thank you for allowing us to play a role in this patients care. We will continue to follow along. Johnathan Zuleta DO, MA Chief Resident, Internal Medicine Pager [phone] or Available on Voalte Total time (reviewing and writing notes, interdisciplinary rounds with the nurse , embedded case manager and the social worker psychiatric, discussion with e business consultant services) spent greater than 25 minutes of which > 50% was spent face to face with the patient in care coordination and bedside counseling (explaining treatment options, disease processes, laboratory/imaging results, prognosis, risks and benefits of treatment options, medication side effects, importance of compliance with treatment, risk factor reduction, follow up with primary care physician). Subjective West Cerna is a 85 y.o. female. Patient was disoriented and did not fo llow commands leading to a stroke activation. Evaluated the patient this was a likely related to delirium. Subsequent imaging with CT head and CTA head and ne ck was negative for any sort of stroke. Evaluation this morning she is alert an d oriented. She complains of feeling fatigued she was unable to sleep well last night. She denies any other symptoms. She denies any numbness, tingling, weak ness. She denies any chest pain, palpitations, or shortness of breath. Medications Scheduled Meds:acetaminophen (TYLENOL) tablet 650 mg, 650 mg, Oral, Q6H* ceFAZolin (ANCEF) IVP 2 g, 2 g, Intravenous, Q8H* enoxaparin (LOVENOX) syringe 30 mg, 30 mg, Subcutaneous, BID gentamicin 0.3 % ophthalmic solution 1 drop, 1 drop, Both Eyes, Q4H methocarbamoL (ROBAXIN) tablet 750 mg, 750 mg, Oral, TID metoprolol tartrate tablet 25 mg, 25 mg, Oral, BID polyethylene glycol 3350 (MIRALAX) packet 17 g, 1 packet, Oral, QDAY rOPINIRole (REQUIP) tablet 1.5 mg, 1.5 mg, Oral, QDAY (See eMAR) senna/docusate (SENOKOT-S) tablet 1 tablet, 1 tablet, Oral, BID Continuous Infusions: PRN and Respiratory Meds:fentaNYL citrate PF Q1H PRN, ondansetron (ZOFRAN) IV Q6 H PRN, oxyCODONE Q4H PRN Review of Systems: A 14 point review of systems was negative except for: Mild right lower extremity pain Objective: Vital Signs: Last Filed Vital Signs: 24 Tiffany r Range BP: 139/70 (02/15 075) Temp: 36.2 C (97.2 F) (02/15 075) Pulse: 91 (02/15 0756) Respirations: 18 PER MINUTE (02/15 075) SpO2: 100 % (02/15 075) SpO2 Pulse: 98 (02/14 1500) BP: (108-175)/(51-121) Temp: [36.2 C (97.2 F)-37.7 C (99.8 F)] Pulse: [73-123] Respirations: [14 PER MINUTE-21 PER MINUTE] SpO2: [92 %-100 %] Intensity Pain Scale (Self Report): Asleep (02/14/21 1545) Vitals: 02/13/21 2253 Weight: 105 kg (231 lb 7.7 oz) Intake/Output Summary: (Last 24 hours) Intake/Output Summary (Last 24 hours) at 02/15/2021 0848 Last data filed at 02/15/2021 0800 Gross per 24 hour Intake 1225 ml Output 1400 ml Net -175 ml Physical Exam General: Alert, cooperative, no distress, appears stated age, fatigued appearin g Lungs: Clear to auscultation bilaterally Heart: Irregular regular, S1, S2 normal, no murmur, click rub or gallop Abdomen: Soft, non-tender. Bowel sounds normal. No masses. No organomegaly. Peripheral pulses 2+ and symmetric, all extremities Psych: Appropriate Lab Review Pertinent labs reviewed Point of Care Testing (Last 24 hours) Glucose: (!) 140 (02/15/21420) POC Glucose (Download): (!) 159 (02/15/21430) Radiology and other Diagnostics Review: Pertinent radiology reviewed. * Tim Thomson MD - 02/15/2021 7:55 AM CDT Orthopedic Surgery Progress Note A/P: West Cerna is a 85 y.o. female w/ prox femur fx now s/p CMN 02/14 - PT/OT - WB status: WBAT RLE - Abx: Ancef x 24 hrs post op - Pain control per primary team - Ortho to maintain dressings - Call ortho with questions - Pt to take Lovenox for DVT ppx until follow-up appt - May resume Diet - Disposition: Pt will not require foreseeable future Orthopedic surgical operat jocelyne intervention during this admission Upon discharge, please have the patient f/u with Dr. Zapata from [facility] in 2 weeks by calling [phone] During normal business hours, please contact Saranya Willis (#[id number] on [facility]), [facility] any Hartman (#[id number]), or Dimitri Orona. At all other times, contact the [facility] / [facility] resident conference services director for any questions or concerns. Tim Thomson MD [id number] S: Stroke activated this AM, no intervention performed. NPO for LITIGATOR eval. Patien t lethargic this morning, minimally arousable. Would answer yes/no questions. O: Blood pressure (!) 175/121, pulse (!) 123, temperature 36.6 C (97.9 F), heig ht 167.6 cm (66"), weight 105 kg (231 lb 7.7 oz), SpO2 92 %. Body mass index is 37.36 kg/m. BMI Category: Obesity (30 to <40) Gen: Not alert Encephalopathy: Encephalopathy present Metabolic CV: Normal rate Pulm: Non-labored Abd: Soft, NT, ND Skin: warm, dry Pressure Injury: No pressure injury MSK: RLE: minimal +DF/PF; +EHL/FHL; foot warm and well perfused. 2+ DP pulses; distal cap refill < 2 sec * Jenny Strickland RN - 02/15/2021 4:50 AM CDT 414 This RN went to get pt's am labs. Pt lethargic not following commands to at tempt lab draws. Pt would not open eyes when asked, did not respond to orientati on questions. Pupils PERRLA. Labs obtained, pt began to sweat, still not followi ng commands refusing to straighten arms for RN. Stroke team activated at 420. V S & EKG obtained as well as blood glucose. See docflow. Stroke team to bedside to evaluate pt. [address] Pt taken down to [address]. 444 Trauma team updated on pt's change in LOC. Will keep team updated. [address] Pt alert and following commands with stroke team now. VSS. Per neuro resident pt received IV contrast and recommends bolus of 500ml to clear contrasts and NPO until speech can evaluate pt. Will updated trauma team regarding placing orders. * Ryan Farrell MD - 02/14/2021 2:53 PM CDT Ortho Update Note: Post-Op Recommendations A/P West Ceran is a 85 y.o. female w/ prox femur fx now s/p CMN 02/14 - PT/OT - WB status: WBAT RLE - Abx: Ancef 24 hrs post op - Pain control per primary team - Ortho to maintain dressings - Call ortho with questions - Pt to take Lovenox for DVT ppx until follow-up appt - May resume Diet - Disposition: Pt will not require foreseeable future Orthopedic surgical operat jocelyne intervention during this admission Upon discharge, please have the patient f/u with Dr. Zapata from [facility] in 2 weeks by calling [phone] Ryan Farrell MD Pager [phone] * Javier Zacarias APRN-PRICING/SIGNAGE TEAM MEMBER - 02/14/2021 9:08 AM CDT Trauma Progress Note Today's Date: 02/14/2021 Hospital Day: Hospital Day: 2 Assessment/ Plan: West Cerna is a 85 y.o. female w/ Afib on Xeralto (last took AM 02/13), HTN, restless leg syndrome who had a ground level fall when the chair she was us ing for support slid out from under her. She did not hit her head, no LOC. She h ad immediate right hip pain and could not get up. The children's zoo caretaker for her was in the home and called 911. She presented to the transferring facility and under went a CXR, pelvis, right hip, and right femur which showed right subtroch anteric hip fracture and she was transferred to [facility] for further management. She was evaluated by the orthopedics team and was taken to the OR on 02/14 for cepha lomedullary nailing of the right proximal femur fracture. Principal Problem: Trauma Active Problems: Fall Hip fracture (HCC) Class 2 severe obesity with serious comorbidity in adult ([facility]) Atrial fibrillation, chronic ([facility]) Chronic anticoagulation Essential hypertension Restless leg syndrome Impaired mobility and activities of daily living Acute traumatic pain Hypomagnesemia Frailty syndrome in geriatric patient Gait instability Neuro Acute pain due to trauma --Tylenol 650mg Q6 hour --Oxycodone 5-15mg Q4 hour PRN --Robaxin 750mg po TID --Fentanyl 25-50mcg IV q 1 hour PRN severe pain not relieved by oxycodone CV Monitor HR/BP. HDS INLETTER Metoprolol Pulm Pulmonary toilet and hygiene, IS GI Bowel regimen Regular Diet Zofran prn n/v Monitor UOP/Cr FEN IV saline lock Monitor and replace lytes prn Heme/ID Monitor Hgb/WBC/plt/fever Endo Monitor and treat prn MS Right subtrochanteric femur fracture s/p CMN on 02/14 Orthopedics Recs: - PT/OT - WB status: WBAT RLE - Abx: Ancef 24 hrs post op - Pain control per primary team - Ortho to maintain dressings - Call ortho with questions - Pt to take Lovenox for DVT ppx until follow-up appt - May resume Diet - Disposition: Pt will not require foreseeable future Orthopedic surgical operat jocelyne intervention during this admission PT/OT PPx SCDs, Lovenox Disp - Continue inpatient care Case management/social work for discharge planning Subjective Overnight Events: RADHA. Pain controlled. Objective: Physical Exam: General: in no apparent distress, well developed and well nourished, alert, orie nted times 3, afebrile, anicteric and cooperative Head/Ears/Eyes/Nose/Throat: normal atraumatic, no neck masses, no jvd Respiratory: Clear Auscultation Cardiovascular: Regular rate and rhythm Abdomen: No Distention and No Tenderness Extremities: Warm and well perfused and No edema Neuro: alert, oriented x3, speech normal in contrext and clarity, memory intact grossly, motor strength: full proximally and distally, no involuntary movements - tremors, sensation: intact to vibration, pain, and light touch and Ramón Sco re 15 Derm: Warm, dry, anicteric Musc: Normal ROM and Normal strength and tone Vital Signs: (24 hours) BP: (125-171)/(58-119) Temp: [36.4 C (97.5 F)-37.7 C (99.8 F)] Pulse: [73-119] Respirations: [14 PER MINUTE-21 PER MINUTE] SpO2: [95 %-100 %] Intake/Output Summary: Intake/Output Summary (Last 24 hours) at 02/14/2021 1837 Last data filed at 02/14/2021 1628 Gross per 24 hour Intake 1895 ml Output 1360 ml Net 535 ml Date of Last Stool: INLETTER Medications: Scheduled Meds:acetaminophen (TYLENOL) tablet 650 mg, 650 mg, Oral, Q6H* ceFAZolin (ANCEF) IVP 2 g, 2 g, Intravenous, Q8H* enoxaparin (LOVENOX) syringe 30 mg, 30 mg, Subcutaneous, BID gentamicin 0.3 % ophthalmic solution 1 drop, 1 drop, Both Eyes, Q4H methocarbamoL (ROBAXIN) tablet 750 mg, 750 mg, Oral, TID metoprolol tartrate tablet 25 mg, 25 mg, Oral, BID polyethylene glycol 3350 (MIRALAX) packet 17 g, 1 packet, Oral, QDAY rOPINIRole (REQUIP) tablet 1.5 mg, 1.5 mg, Oral, QDAY (See eMAR) senna/docusate (SENOKOT-S) tablet 1 tablet, 1 tablet, Oral, BID Continuous Infusions: PRN and Respiratory Meds:fentaNYL citrate PF Q1H PRN, ondansetron (ZOFRAN) IV Q6 H PRN, oxyCODONE Q4H PRN Prophylaxis Review: Peptic Ulcer Disease: None: Not indicated VTE: Pharmacological prophylaxis; Enoxaparin and Mechanical prophylaxis; Sequent ial compression device Lines, Drains, and Airways: Lines, Drains, Airways and Wounds IV Peripheral IV 02/13/21 2250 Right Hand 20 G <1 day Drain Indwelling Urinary Catheter 02/13/21 2319 12 FR <1 day Wound Wounds 02/14/21 1445 Left Leg <1 day Pertinent labs, medications, radiology, and diagnostic procedures reviewed inclu ding: active problem list, medication list, allergies, family history, social hi story, health maintenance, notes from last encounter, lab results, imaging Nutrition: No Dietitian Consult Wound: Wound Documentation Wounds 02/14/21 1445 Left Leg (Active) 02/14/21 1445 Leg Wound Type: Pressure Injury Stages: Pressure Injury Present On Inpatient Admission: Wound/Pressure Injury Orientation: Left Wound Location Comments: Wound Description (Comments): Wound Type:: Wound Dressing Status Intact 02/14/21 1628 Wound Dressing and / or Treatment Gauze;Transparent (i.e. Tegaderm) 02/14/21 162 8 Wound Drainage Amount None 02/14/21 1628 Wound Base Assessment Dressing intact, base not assessed 02/14/21 1628 Surrounding Skin Assessment Dry;Intact 02/14/21 1452 Number of days: 0 ADRIENNE Bhatia [id number] Trauma Service Pager: [phone] * Estella Graves PT - 02/14/2021 7:15 AM CDT PHYSICAL THERAPY NOTE Name: West Cerna : 1935 A ge: 85 y.o. Admission Date: 02/13/2021 LOS: 1 day Orders received, chart reviewed. Note plans for OR this date with orthopedics; w ill follow-up post-operatively to evaluate/treat as indicated. Therapist: Estella Graves, PT Date: 02/14/2021 * Jenny Strickland RN - 02/14/2021 12:05 AM CDT Pt's purse placed in lock box outside pt room for tonight, pt's son will filler picker tomorrow morning. Cherry placed in security bag and sealed, Carolyn Bansal RN verified with this RN. * Flaco Sifuentes RN - 02/13/2021 8:39 PM CDT Report taken from HARVEY Tai at [facility]. Pt still at [facility] at time of r eport. ETA [id number]. documented in this encounter H&P Notes * Azra Lawson APRN-NP - 02/18/2021 7:01 AM CDT Tertiary Trauma Survey (TTS) Date of TTS: 02/18/2021 Admission Date: 02/13/2021 Trauma Activation Type: Transfer HPI: West Cerna is a 85 y.o. F w/PMH of Afib on Xarelto, HTN, and RLS who pr esented to as a trauma transfer 02/13/21 s/p fall. She reported that she was s itting in a chair when it slid out from under her and she landed on her R hip. S he denied head strike or LOC. She was unable to get up and had R hip pain. She w as taken to [facility] where she was found to have a right subtrochanteric femu r fracture. She was transferred for higher level of care. She was admitted to e trauma floor with Ortho and IM consults. She went to the OR 02/14 for CMN of he r R hip. Overnight 02/14-02/15 she was found to have altered mental status with fa ilure to follow commands or answer questions. She was stroke activated but had i mprovement in symptoms during CT. Neurology recommended LITIGATOR evaluation which she passed and was given a regular diet. She has returned to normal mental status t his morning. PMHx: No past medical history on file. PSHx: Surgical History: Procedure Laterality Date TREATMENT INTERTROCHANTERIC/ PERITROCHANTERIC/ SUBTROCHANTERIC FEMORAL FRACT URE WITH INTERMEDULLARY IMPLANT WITH/ WITHOUT INTERLOCKING SCREWS/ CERCLAGE Rig t 02/14/2021 Performed by Alexandr Zapata MD at [facility] OR Social Hx: Social History Socioeconomic History Marital status: Spouse name: Not on file Number of children: Not on file Years of education: Not on file Highest education level: Not on file Occupational History Not on file Tobacco Use Smoking status: Never Smoker Smokeless tobacco: Never Used Substance and Sexual Activity Alcohol use: Not Currently Drug use: Not on file Sexual activity: Not on file Other Topics Concern Not on file Social History Narrative Not on file Allergies: Allergies Allergen Reactions Codeine NAUSEA ONLY Lisinopril COUGH PHYSICAL ASSESSMENT General: Alert, cooperative, no distress, appears stated age Head: Normocephalic, without obvious abnormality, atraumatic Eyes: Conjunctivae/corneas clear. PERRL, EOMs intact Nose: Nares normal. Septum midline. Mucosa normal. No drainageor sinus tendern ess Throat: Lips, mucosa and tongue normal. Teeth and gums normal Neck: Supple, symmetrical, trachea midline, no carotid bruit and no JVD Back: Symmetric, no curvature, ROM normal. Lungs: Clear to auscultation bilaterally, even and unlabored respirations Chest wall: No tenderness or deformity. Heart: Irregular rate and rhythm, no murmur, click rub or gallop Abdomen: Soft, non-tender. Bowel sounds normal. No masses. No organomegaly. Extremities: Extremities normal, atraumatic, no cyanosis or edema, Dressing to R hip with dressing in place. C/D/I. Sensation intact Skin: Skin color, texture, turgor normal. No rashes or lesions Neurologic: No focal deficits. Normal strength, sensation and reflexes throughou t. Musculoskeletal: Normal / Negative except for RLE due to injury Consult Date Consult Date Neurosurgery IM 02/14 Orthopedics 02/14 Plastics Urology List Injuries Identified to Date: R hip fx LIST OPERATIVE & Interventional RADIOLOGICAL Procedures: Procedure(s) (LRB): TREATMENT INTERTROCHANTERIC/ PERITROCHANTERIC/ SUBTROCHANTERIC FEMORAL FRACTURE WITH INTERMEDULLARY IMPLANT WITH/ WITHOUT INTERLOCKING SCREWS/ CERCLAGE (Right) CTA HEAD WO/W CONTR+POST PRO Final Result CTA head: 1. No occlusion or high-grade stenosis of major intracranial arteries. 2. Mild cerebral white matter disease, likely secondary to chronic microvascula r ischemic changes. CTA neck: 1. No flow-limiting stenosis, occlusion, or dissection of the cervical carotid or vertebral arteries. 2. Advanced cervical spondylosis with at least moderate multilevel central spin al stenosis and marked multilevel bilateral neural foraminal stenosis. 3. Hypodense right thyroid nodule. Thyroid ultrasound could be performed for fu rther evaluation if indicated. Jason Mcadams MD discussed these findings with Dr. Acuna by telephone 5:36 AM By my electronic signature, I attest that I have personally reviewed the images for this examination and formulated the interpretations and opinions expressed i n this report Finalized by Antonio Singer MD, PhD on 02/15/2021 6:07 AM. Dictated by Joesph Mcadams MD on 02/15/2021 5:25 AM. CTA NECK WO/W CONTRAST+POST P Final Result CTA head: 1. No occlusion or high-grade stenosis of major intracranial arteries. 2. Mild cerebral white matter disease, likely secondary to chronic microvascula r ischemic changes. CTA neck: 1. No flow-limiting stenosis, occlusion, or dissection of the cervical carotid or vertebral arteries. 2. Advanced cervical spondylosis with at least moderate multilevel central spin al stenosis and marked multilevel bilateral neural foraminal stenosis. 3. Hypodense right thyroid nodule. Thyroid ultrasound could be performed for fu rther evaluation if indicated. Jason Mcadams MD discussed these findings with Dr. Acuna by telephone 5:36 AM By my electronic signature, I attest that I have personally reviewed the images for this examination and formulated the interpretations and opinions expressed i n this report Finalized by Antonio Singer MD, PhD on 02/15/2021 6:07 AM. Dictated by Joesph Mcadams MD on 02/15/2021 5:[address] HEAD WO CONTRAST Final Result Degraded examination without obvious acute intracranial abnormality. Jason Mcadams MD discussed these findings with Dr. Acuna by telephone 4:57 AM By my electronic signature, I attest that I have personally reviewed the images for this examination and formulated the interpretations and opinions expressed i n this report Finalized by Antonio Singer MD, PhD on 02/15/2021 5:34 AM. Dictated by Joesph Mcadams MD on 02/15/2021 4:47 AM. FLUORO MOBILE IN OR Final Result TTS completed and radiology reviewed. No additional injuries or concerns noted. Azra Lawson APRN, STONECUTTER HAND-C Pager [phone] Trauma Pager [phone] documented in this encounter Consult Notes * Johnathan Zuleta, DO - 02/14/2021 1:24 PM CDT Associated Order(s): CONSULT INTERNAL MEDICINE PHYSICIAN Internal Medicine General Consult Note Admission Date: 02/13/2021 LOS: 1 day Reason for Consult: "Geriatric Trauma" Consult type: Opinion with orders Assessment/Plan Ms. West Cerna is a remarkably pleasant 85 y/o Female with a PMH of Atrial Fib rillation on AC, HTN, and RLS that presented after a ground level fall and was f ound to have R Subtrochanteric hip fracture and was transferred to for surgic al evaluation. Internal Medicine was consulted for Geriatric Trauma #R Subtrochanteric Hip Fracture - Occurred after ground level fall with no LOC - s/p surgical fixation 02/14 #Paroxsymal Atrial Fibrillation on AC #HTN - [id number] for Age (2), Sex, HTN - Rate Controlled with Metoprolol Tartrate 25 BID and is on Rivaroxaban 20 mg da radha for AC #Restless Leg Syndrome - Ropinirole 1.5 mg QHS Recommendations: > Have reached out to Ortho regarding resumption of anticoagulation, but would recommend resuming the patient's rivaroxaban to reduce her risk of stroke when felt safe from a surgery standpoint > Resume INLETTER metoprolol tartrate 25 mg twice daily (ordered) > Resume patient's INLETTER ropinirole for her restless leg (ordered) > With the patient's recent surgery and postop pain, she is a high risk to go into atrial fibrillation with RVR. If this were to occur and patient is hemodynamically stable, would recommend pushes of IV metoprolol 5 mg every 5 minutes up to 15 mg. Thank you for allowing us to play a role in this patients care. We will continue to follow along. Johnathan Zuleta DO, MA Chief Resident, Internal Medicine Pager [phone] or Available on Voalte Total time (reviewing and writing notes, interdisciplinary rounds with the nurse , embedded case manager and the social worker psychiatric, discussion with e business consultant services) spent >80 minutes of which > 50% was spent face to face with the patient in care coordination and bedside counseling (explaining treatment options, disease processes, laboratory/imaging results, prognosis, risks and benefits of treatment options, medication side effects, importance of compliance with treatment, risk factor reduction, follow up with primary care physician). History of Present Illness:Ms. West Cerna is a remarkably pleasant 85 y/o Femal e with a PMH of Atrial Fibrillation on AC, HTN, and RLS that presented after a g round level fall and was found to have R Subtrochanteric hip fracture and was tr ansferred to for surgical evaluation. Internal Medicine was consulted for Musa iatric Trauma. She states she was ambulating to the refrigerator when she reached out her hand to hold the chair when the chair slipped out from under her causing her to fall. She denied any associated lightheadedness, dizziness, or presyncopal symptoms prior to the fall. After the fall, she denied hitting her head or loss of consc iousness. She admitted to acute onset pain in her right buttock area that was d ull in nature rated as a 9 out of 10. She denied any associated numbness, tingl ing, weakness down her leg. She admitted the pain was worse with movement. She has a past medical history of atrial fibrillation on anticoagulation, hypert ension, and restless leg syndrome. Family history obtained and is noncontributory. Social history obtain. She denies tobacco, alcohol, or drug use. No past medical history on file. No past surgical history on file. Social History Socioeconomic History Marital status: Spouse name: Not on file Number of children: Not on file Years of education: Not on file Highest education level: Not on file Occupational History Not on file Tobacco Use Smoking status: Never Smoker Smokeless tobacco: Never Used Substance and Sexual Activity Alcohol use: Not Currently Drug use: Not on file Sexual activity: Not on file Other Topics Concern Not on file Social History Narrative Not on file Social Determinants of Health Financial Resource Strain: Difficulty of Paying Living Expenses: Food Insecurity: Worried About Running Out of Food in the Last Year: Ran Out of Food in the Last Year: Transportation Needs: Lack of Transportation (Medical): Lack of Transportation (Non-Medical): Physical Activity: Days of Exercise per Week: Minutes of Exercise per Session: Stress: Feeling of Stress : Social Connections: Frequency of Communication with Friends and Family: Frequency of Social Gatherings with Friends and Family: Attends [employer]ism Services: Active Member of Clubs or Organizations: Attends Club or Organization Meetings: Marital Status: Intimate Partner Violence: Fear of Current or Ex-Partner: Emotionally Abused: Physically Abused: Sexually Abused: No family history on file. Allergies: Codeine and Lisinopril Scheduled Meds:[SEP Hold] enoxaparin (LOVENOX) syringe 30 mg, 30 mg, Subcutaneou s, BID magnesium sulfate 1 g/D5W 100 mL IVPB, 1 g, Intravenous, Q4H* Followed by [SEP Hold] magnesium sulfate 1 g/D5W 100 mL IVPB, 1 g, Intravenous, Q4H* [SEP Hold] polyethylene glycol 3350 (MIRALAX) packet 17 g, 1 packet, Oral, QDAY [SEP Hold] senna/docusate (SENOKOT-S) tablet 1 tablet, 1 tablet, Oral, BID Continuous Infusions: lactated ringers infusion Stopped (02/14/21 1106) lactated ringers infusion 20 mL/hr at 02/14/21 1108 lactated ringers infusion 100 mL/hr at 02/14/21 1048 PRN and Respiratory Meds:[SEP Hold] acetaminophen Q4H PRN, [SEP Hold] fentaNYL c itrate PF Q1H PRN, [SEP Hold] ondansetron (ZOFRAN) IV Q6H PRN, [SEP Hold] oxyCOD ONE Q4H PRN Review of Systems: A 14 point review of systems was negative except for: Right hip pain Vital Signs: Last Filed in 24 hours Vital Signs: 24 hour Range BP: 125/87 (02/14 1200) Temp: 36.7 C (98 F) (02/14 1130) Pulse: 90 (02/14 1130) Respirations: 21 PER MINUTE (02/14 1130) SpO2: 98 % (02/14 1130) SpO2 Pulse: 99 (02/13 2249) Height: 167.6 cm (66") (02/13 2253) BP: (125-157)/(58-119) Temp: [36.4 C (97.5 F)-36.7 C (98.1 F)] Pulse: [73-90] Respirations: [18 PER MINUTE-21 PER MINUTE] SpO2: [95 %-100 %] Physical Exam: General: Alert, cooperative, no distress, appears stated age Eyes: Conjunctivae/corneas clear. PERRL, EOMs intact Neck: Supple, symmetrical, trachea midline, no adenopathy, thyroid: no enlarg ement/tenderness/nodules, no carotid bruit and no JVD Lungs: Clear to auscultation bilaterally Heart: Irregular irregular, S1, S2 normal, no murmur, click rub or gallop Abdomen: Soft, non-tender. Bowel sounds normal. No masses. No organomegaly. Extremities: Extremities normal, atraumatic, no cyanosis or edema Peripheral pulses 2+ and symmetric, all extremities Skin: Skin color, texture, turgor normal. No rashes or lesions Neurologic: CNII - XII intact. Normal strength, sensation and reflexes throug hout. Psych: Appropriate Lab/Radiology/Other Diagnostic Tests: Pertinent labs reviewed EKG Reviewed * Gómez Greene MD - 02/14/2021 7:02 AM CDT Associated Order(s): CONSULT ORTHOPEDIC SURGERY PHYSICIAN [facility] Consult Note Admission Date: 02/13/2021 Chief Complaint/Reason for Consult: Right subtrochanteric femur fracture Assessment/Plan West Cerna is a 85 y.o. female with past medical histo ry of [facility] who presented as a trauma transfer after a ground-level fall she sustained a right subtrochanteric femur fracture yesterday -Plan for or 02/14 for surgical fixation of right subtrochanteric femur fracture, will get consent, case requested. -WB Status -nonweightbearing right lower extremity -Antibiotics / Tetanus - per primary -Pain Control - per primary -Diet - per primary -DVT PPX - Mechanical, Chemoprophylaxis - per primary Patient to be discussed with staff surgeon Dr. Greene. UPDATE: Patient posted and consented for surgical fixation of Right hip fracture. Plan for OR with final timing pending availability. Continue in bed mobility only for now. During normal business hours, please contact Saranya Willis (Pager [phone] on VTWF) , Flaquita Warren (#[phone]), Nora Hartman (#[phone]) or Cb Orona. At all othe r times, contact the orthopedic surgery resident conference services director for any questions or co ncerns. History of Present Illness: West Cerna is a 85 y.o. female with past me dical history of A. fib on Xarelto who presented as a trauma transfer after a gr ound-level fall she sustained a right subtrochanteric femur fracture yesterday. She denies hitting head no loss of consciousness. Immediate right hip pain. C ould not ambulate. Denies pain in any other extremity. No past medical history on file. No past surgical history on file. Social History Tobacco Use Smoking status: Not on file Substance Use Topics Alcohol use: Not on file Drug use: Not on file No family history on file. Allergies: Codeine and Lisinopril No current outpatient medications on file as of 02/14/2021. Review of Systems: 10 Point Review of Systems Obtained. Pertinent items noted in HPI. Pos -right hip pain Neg-pain in any other extremities. Vital Signs: Last Filed in 24 hours BP: 154/119 (02/13 2249) Temp: 36.7 C (98.1 F) (02/13 2249) Pulse: 86 (02/13 2249) Respirations: 18 PER MINUTE (02/13 2249) SpO2 Pulse: 99 (02/13 2249) Height: 167.6 cm (66") (02/13 2253) Physical Exam: Constitutional: Alert, NAD HEENT: Normocephalic, no scleral icterus Respiratory: Unlabored respirations on RA Cardiovascular: Regular rate Abdomen: Nondistended, NTTP Lymph: No significant lymphedema, no lymphadenopathy of affected extremity Skin: Normal Turgor Musculoskeletal: RLE: Moderate swelling over right hip, severely tender to palpation over right hip, no evidence of skin breakdown to suggest an open fracture. NVI distally, T A/GS, EHL/FHL intact. SILT in DP/SP/Tib/Adin/Saph distributions, DP/PT palpable, Cap refill < 2 sec, warm extremity, soft compartments Neurologic: Grossly intact, No focal deficits noted unless listed above Lab/Radiology/Other Diagnostic Tests: CBC w/Diff Lab Results Component Value Date/Time WBC 10.0 02/13/2021 11:00 PM HGB 13.7 02/13/2021 11:00 PM HCT 41.0 02/13/2021 11:00 PM PLTCT 165 02/13/2021 11:00 PM Inflammatory Markers No results found for: ESR, CRP Basic Metabolic Profile Lab Results Component Value Date/Time NA 139 02/13/2021 11:00 PM K 4.3 02/13/2021 11:00 PM CL 101 02/13/2021 11:00 PM CO2 27 02/13/2021 11:00 PM GAP 11 02/13/2021 11:00 PM BUN 22 02/13/2021 11:00 PM CR 0.57 02/13/2021 11:00 PM GLU 110 (H) 02/13/2021 11:00 PM Coagulation Studies No results found for: PT, PTT, INR Radiology: No results found. Cb Orona MD [phone] documented in this encounter Miscellaneous Notes * Case Mgmt WILI Mario - Steffany Parnell - 02/19/2021 2:33 PM CDT BIOMASS FACILITATOR Note: Faxed dc orders.to [email or web address] ([place]) at OR per the request from DASH Negron . Steffany Parnell Chip Bin Conveyor Tender For additional assistance please contact [facility] *[phone] * Case Mgmt DC Plan - Sahra Murdock - 02/19/2021 2:06 PM CDT Case Management Progress Note NAME:West Cerna : 1935 AGE: 85 y.o. ADMISSION DATE: 02/13/2021 DAYS ADMITTED: LOS: 6 days Todays Date: 02/19/2021 Plan Dc to [facility] at 4pm via facility transport. Interventions Support Info or Referral Discharge Planning SW reached out to [facility], they are able to transfer pt today at 4pm . SW updated medical team, bedside RN, and pt's son (via phone) of dc plans. Medication Needs Financial Legal Other Disposition Expected Discharge Date 02/19/2021 4:00 PM Transportation Will the Patient Use Family Transport?: Yes Next Level of Care (Acute Psych discharges only) Discharge Disposition Selected Continued Care - Admitted Since 02/13/2021 [facility] Destination Coordination complete. Service Provider Selected Services Address Phone Fax Patient Preferred [facility] [phone] [facility] [phone] * Case Mgmt DC Plan - Steffany Parnell - 02/18/2021 10:01 AM CDT BIOMASS FACILITATOR Note: Printed and placed transfer packet in the pt's wall unit per request from DASH Negron. Steffany Parnell Chip Bin Conveyor Tender For additional assistance please contact [facility] *[phone] * Case Mgmt DC Plan - Sahra Murdock - 02/18/2021 8:32 AM CDT Case Management Progress Note NAME:West Cerna : 1935 AGE: 85 y.o. ADMISSION DATE: 02/13/2021 DAYS ADMITTED: LOS: 5 days Todays Date: 02/18/2021 Plan Dc to [facility] pending auth Interventions Support Info or Referral Discharge Planning STEVEN updated by pt's son, they would like the facilities in the following orders : [facility] - unable to accept [facility] [place] - able to accept [facility] - able to accept SW notified pt's son of the above and in agreement with transfer to [facility]. STEVEN updated [facility] who is working on insurance auth. SW tasked BIOMASS FACILITATOR to deliver pt's transfer packet. SW tasked BIOMASS FACILITATOR to fax dc orders. Medication Needs Financial Legal Other Disposition Expected Discharge Date 02/18/2021 Transportation Will the Patient Use Family Transport?: Yes Next Level of Care (Acute Psych discharges only) Discharge Disposition Selected Continued Care - Admitted Since 02/13/2021 [facility] Destination Coordination complete. Service Provider Selected Services Address Phone Fax Patient Preferred [facility] [phone] [address] [phone] * Case Mgmt DC Plan - Sahra Murdock - 02/17/2021 9:10 AM CDT Case Management Progress Note NAME:West Cerna : 1935 AGE: 85 y.o. ADMISSION DATE: 02/13/2021 DAYS ADMITTED: LOS: 4 days Todays Date: 02/17/2021 Plan Dc to inpatient setting, referrals pending with: [facility] OP Interventions Support Info or Referral Discharge Planning STEVEN updated pt's son is interested in pt going to facility in the [facility] and [facility]. STEVEN followed up with pt regarding dc plans. Pt agrees with dc plans for placement and [place] area and states her son lives in the [facility]. STEVEN reviewed pt's in [facility] list and which facilities were in the area of pt's son home. STEVEN sent referrals out. UPDATE STEVEN communicated with pt's son and provided facility names. Son and daughter in [place] will review list to make a determination of first choice. Medication Needs Financial Legal Other Disposition Expected Discharge Date 02/18/2021 Transportation Will the Patient Use Family Transport?: Yes Next Level of Care (Acute Psych discharges only) Discharge Disposition Selected Continued Care - Admitted Since 02/13/2021 No services have been selected for the patient. * Care Plan - Vero Schumacher RN - 02/17/2021 8:12 AM CDT Problem: Infection, Risk of, Urinary Catheter-Associated Urinary Tract Infection Goal: Absence of urinary catheter-associated infection Outcome: Goal Ongoing Problem: Pain Goal: Management of pain Outcome: Goal Ongoing Goal: Knowledge of pain management Outcome: Goal Ongoing Goal: Progress Toward Pain Management Goals Outcome: Goal Ongoing Problem: Discharge Planning Goal: Participation in plan of care Outcome: Goal Ongoing Goal: Knowledge regarding plan of care Outcome: Goal Ongoing Goal: Prepared for discharge Outcome: Goal Ongoing Problem: High Fall Risk Goal: High Fall Risk Outcome: Goal Ongoing Problem: Self-Care Deficit Goal: Maximize ADL functioning Outcome: Goal Ongoing Problem: Mobility/Activity Intolerance Goal: Maximize functional ADL's and mobility outcomes Outcome: Goal Ongoing Problem: Skin Integrity Goal: Skin integrity intact Outcome: Goal Ongoing Goal: Healing of skin (Wound & Incision) Outcome: Goal Ongoing Goal: Healing of skin (Pressure Injury) Outcome: Goal Ongoing Problem: High Fall Risk Goal: High Fall Risk Outcome: Goal Ongoing * Case Mgmt DC Plan - Sahra Murdock - 02/16/2021 9:38 AM CDT Case Management Progress Note NAME:West Cerna : 1935 AGE: 85 y.o. ADMISSION DATE: 02/13/2021 DAYS ADMITTED: LOS: 3 days Todays Date: 02/16/2021 Plan Dc to inpatient setting. Interventions Support Info or Referral Discharge Planning SW met with pt to discuss dc plans. Pt open to placement. SW provided pt with an in network list for SNF facilities to review. UPDATE SW followed up with pt regarding identification of facility. Pt is interested in going to [facility]. SW sent referral. Medication Needs Financial Legal Other Disposition Expected Discharge Date 02/18/2021 Transportation Will the Patient Use Family Transport?: Yes Next Level of Care (Acute Psych discharges only) Discharge Disposition Selected Continued Care - Admitted Since 02/13/2021 No services have been selected for the patient. * Care Plan - Robert Benito RN - 02/16/2021 6:09 AM CDT Problem: Infection, Risk of, Urinary Catheter-Associated Urinary Tract Infection Goal: Absence of urinary catheter-associated infection Outcome: Goal Ongoing Problem: Pain Goal: Management of pain Outcome: Goal Ongoing Goal: Knowledge of pain management Outcome: Goal Ongoing Goal: Progress Toward Pain Management Goals Outcome: Goal Ongoing Problem: Discharge Planning Goal: Participation in plan of care Outcome: Goal Ongoing Goal: Knowledge regarding plan of care Outcome: Goal Ongoing Goal: Prepared for discharge Outcome: Goal Ongoing Problem: High Fall Risk Goal: High Fall Risk Outcome: Goal Ongoing Problem: Self-Care Deficit Goal: Maximize ADL functioning Outcome: Goal Ongoing Problem: Mobility/Activity Intolerance Goal: Maximize functional ADL's and mobility outcomes Outcome: Goal Ongoing * Care Plan - Marlena Lamb RN - 02/15/2021 6:25 PM CDT Problem: Infection, Risk of, Urinary Catheter-Associated Urinary Tract Infection Goal: Absence of urinary catheter-associated infection Outcome: Goal Ongoing Problem: Pain Goal: Management of pain Outcome: Goal Ongoing Goal: Knowledge of pain management Outcome: Goal Ongoing Goal: Progress Toward Pain Management Goals Outcome: Goal Ongoing Problem: Discharge Planning Goal: Participation in plan of care Outcome: Goal Ongoing Goal: Knowledge regarding plan of care Outcome: Goal Ongoing Goal: Prepared for discharge Outcome: Goal Ongoing Problem: High Fall Risk Goal: High Fall Risk Outcome: Goal Ongoing Problem: Self-Care Deficit Goal: Maximize ADL functioning Outcome: Goal Ongoing Problem: Mobility/Activity Intolerance Goal: Maximize functional ADL's and mobility outcomes Outcome: Goal Ongoing * Case Mgmt DC Plan - Nimisha Edouard, RN - 02/15/2021 8:58 AM CDT Case Management Admission Assessment NAME:West Cerna :1935 AGE: 85 y.o. ADMISSION DATE: 02/13/2021 DAYS ADMITTED: LOS: 2 days Todays Date: 02/15/2021 Source of Information: Patient (embedded case manager had brief conversation with son cathy r the phone;.poor connection as he was driving to [place] to visit his father ) Chief Complaint Patient is an 85 y/o female who was a trauma transfer to [facility] on 02/13/2021fter falling in her home. Pat tomás states she was leaning on a chair when it rolled out from under her and she fell onto the floor and landed on her right hip. One of her spouse's caregivers called EMS. Patient was diagnosed with a right subtrochanteric hip fracture and transferred to for further management. She denies hitting head no loss of co nsciousness. Ortho consult; patient went to the OR with Dr. Zapata on 02/14/2021 for surgic al fixation of right subtrochanteric femur fracture. WBAT to RLE. Ancef x24 hour s post-op. Ortho to maintain dressings. Lovenox for DVT ppx until follow-up appo intment. Internal Medicine (geriatric) consult. PT/OT. Pain control. Patient was stroke activated the morning of 02/15/2021ue to disorientation and patient not following commands. CT head as well as CTA head and neck revealed no evidence of CVA. Plan: Case Management Assessment, Discharge Planning for Home with Post-Acute Ca re Needs, Discharge Planning for Post-Acute Facility, Assist PRN with STEVEN/TYLER small Patient has not yet worked with therapies so discharge plan is pending. P attomás states she would like to go home with [facility] who are presently caring for her who has advanced Parkinson's. Son, Brady, would like to be involved with all discharge planning. He states he has already talked to [facility] and they are willing to provide home health for patient. Patient has a cane but will need a roller walker. Patient Address/Phone [place] C[place] [address] [facility] [id number] (home) Emergency Contact Extended Emergency Contact Information Primary Emergency Contact: Yomi Cerna Mobile Relation: Son Secondary Emergency Contact: Emmanuel Cerna Mobile Relation: Spouse Healthcare Directive Healthcare Directive: Yes, patient has a healthcare directive Type of Healthcare Directive: Durable power of business systems technician for healthcare, [facility] re directive Location of Healthcare Directive: Patient does not have it with him/her Would patient like to fill out a (a new) Healthcare Directive?: No, patient decl ined Psych Advance Directive (Psych unit only): No, patient does not have a Psych Adv ance Directive Transportation Will the Patient Use Family Transport?: Yes Expected Discharge Date 02/18/2021 Living Situation Prior to Admission Living Arrangements Type of Residence: Home, independent Living Arrangements: Spouse/significant other Bathroom Shower / Tub: Tub/Shower Unit How many levels in the residence?: 1 Can patient live on one level if needed?: Yes Does residence have entry and/or side stairs?: Yes (3 steps to enter home) Who provides assistance or could if needed?: Patient's spouse is in poor health due to Parkinson's disease. He has caregivers who are with him now. Can support system provide 24/7 care if needed?: No While patient is in the hospital, caregivers are staying 24/7 for her spouse Level of Function Prior level of function: Needs assist with ADLs Which ADLs require assistance?: Patient with one adult son. Spouse has a dvanced Parkinson's and has home health Hospice caregivers. Son reports caregive rs are essentially caring for both his parents. Patient ambulated with a cane pr ior to this injury. Patient states that she has foot drop that she is supposed t o wear orthotics for but prefers not to. Cognitive Abilities Cognitive Abilities: Alert and Oriented, Understands nature of health condition Financial Resources Coverage Primary Insurance: Medicare (SSN: [id number]) Additional Coverage: RX Source of Income Source Of Income: SSI Financial Assistance Needed? No Psychosocial Needs Mental Health Mental Health History: No Substance Use History Substance Use History Screen: No Audit C = 0 Cage Aid = 0 Current/Previous Services PCP Krystian, Geronimo, , Pharmacy [facility] [place] - [place], [place] - [address] [facility]. [address] [place] [id number] Durable Medical Equipment Durable Medical Equipment at home: Single Point Cane, Shower Chair Home Health Receiving home health: No ( has home health/hospice through [facility] but son indicates they have been caring for patient too) Hemodialysis or Peritoneal Dialysis Undergoing hemodialysis or peritoneal dialysis: No Tube/Enteral Feeds Receive tube/enteral feeds: No Infusion Receive infusions: No Private Duty Private duty help used: No Home and Community Based Services Home and community based services: No Juan White Juan White: No Hospice Hospice: No Outpatient Therapy PT: In the past When did patient receive care?: After knee replacements patient cannot remember the name but somewhere in [place], [place] Would patient return for future services?: Yes OT: No LITIGATOR: No [facility] SN[facility]: No NH: No Inpatient Rehab IPR: In the past When did patient receive care?: Cannot remember name but thinks she went to a [facility] after previous hip surgery [facility] LTACH: No Acute Hospital Stay Acute Hospital Stay: No Trauma Specific Frailty Index (TSFI) score Comobidities Cancer history Yes 1 No 0 Coronary heart disease Myocardial infarction 1 Coronary Artery bypass grafting 0.75 Percutaneous coronary intervention 0.5 Medication 0.25 No medication 0 Dementia Severe 1 Moderate 0.5 Mild 0.25 None 0 Daily Activities Help with Grooming Yes 1 No 0 Help with Managing Money Yes 1 No 0 Help doing household work Yes 1 No 0 Help toileting Yes 1 No 0 Help walking Wheelchair 1 Walker 0.75 Cane 0.5 None 0 Health attitude Feel less useful Most time 1 Sometimes 0.5 Never 0 Feel sad Most time 1 Sometimes 0.5 Never 0 Feel effort to do everything Most time 1 Sometimes 0.5 Never 0 Falls Most time 1 Sometimes 0.5 Never 0 Feel lonely Most time 1 Sometimes 0.5 Never 0 Function, sexually active Yes 0 No 1 Nutrition, albumin <3 1 >3 0 Total score: 0.4 (Index score of > 0.27 indicates frailty) Will continue to follow for discharge planning and support, Nimisha Edouard RN, BSN Trauma & Burn Brand Marketing Specialist Pager: [phone] * Care Plan - Jenny Strickland RN - 02/15/2021 6:16 AM CDT Problem: Infection, Risk of, Urinary Catheter-Associated Urinary Tract Infection Goal: Absence of urinary catheter-associated infection Outcome: Goal Ongoing Problem: Pain Goal: Management of pain Outcome: Goal Ongoing Goal: Knowledge of pain management Outcome: Goal Ongoing Goal: Progress Toward Pain Management Goals Outcome: Goal Ongoing Problem: Discharge Planning Goal: Participation in plan of care Outcome: Goal Ongoing Goal: Knowledge regarding plan of care Outcome: Goal Ongoing Goal: Prepared for discharge Outcome: Goal Ongoing Problem: High Fall Risk Goal: High Fall Risk Outcome: Goal Ongoing * Acute Stroke Response - Debra Acuna MD - 02/15/2021 6:09 AM CDT NAME:West Cerna :1935 AGE: 85 y.o. ADMISSION DATE: 02/13/2021 DAYS ADMITTED: LOS: 2 days Date of Service: 02/15/2021 Allergies: Codeine and Lisinopril Type of Acute Stroke Response Team note: Consult Stroke Activation Tier: Tier 1 Assessment & Plan Chief Complaint: disorientation, not following commands Assessment: West Cerna is a 85 y.o. female with h/o HTN, RLS, and Afib RVR taken off anticoagulation this admission for R subtrochanteric hip fracture s/p surgical fixation 02/14/21 who presented with decreased level of consciousnes s and was not following nursing commands during vitals check and blood draw. Pat ient was stroke activated. CT Head demonstrated no intracranial bleed. CTA H/N n egative for LVO. LKN: 1:00 02/15/21 NIHSS: 15 BP: 156/86 HR 122 Impression: Post procedural/anesthesia encephalopathy and mild delirium in the setting of la ck of sleep. Patient was able to answer orientation questions and follow command s by the end of activation and likely was not able to due so initially due to la ck of sleep and adequate rest. Suspected etiology: Stroke Mimic Pre-event mRS: 0 - No symptoms at all Plan: - No acute stroke intervention indicated - Keep NPO until LITIGATOR evaluation in AM - IVF 500ml NS as patient received IV contrast - Delirium protocol: - Avoid benzodiazepines, opiates and anticholinergics if possible as can contrib [employer]/cause delirium. - Frequent reorientation, use of clocks/calendars, verbal reminders of current l ocation and situation. - A calm, comfortable environment that includes familiar objects from home. - Involvement of family members. - Uninterrupted periods of sleep at night, with low levels of noise and minimal light. - Open blinds during the day to promote daytime alertness and a regular sleep-wa ke cycle. Discussed with Dr. Laird. Debra Acuna MD PGY-3 On [facility] Neurology Stroke Pager: [phone] History of Present Ilness 85yoF with PMH Afib on AC, HTN, RLS that presented after ground level fall and w as found to have R subtrochanteric hip fracture. Orthopedic cepahlomedullary luis ling was completed 02/14/21 with anesthesia. Post anesthesia, patient was describ ed as groggy and lethargic but following commands. Around 1:00 AM, patient's davian se kiki bedside labs and patient followed commands to place eye drops however no verbal information was exchanged. At the time of next vitals check around 4::30 AM, patient was not following any commands and was stroke activated. CT Head de monstrated no intracranial bleed. CTA H/N negative for LVO. Patient's orientatio n improved by the end of stroke activation and she was able to answer questions appropriately and follow commands. She is weak in the R lower extremity due to r ecent fracture and surgery, but denies worsening pain. Review of Systems Review obtained from patient. Constitutional: negative Eyes: negative Ears, nose, mouth, throat, and face: negative Respiratory: negative Cardiovascular: negative Gastrointestinal: negative Genitourinary: negative Integument/breast: negative Hematologic/lymphatic: negative Musculoskeletal: negative Neurological: negative Behavioral/Psych: negative Endocrine: negative Allergic/Immunologic: negative Stroke Activation Summary ASRT Arrival: 426 Location of Response : 5220 Page Received: 1612 Clinical Presentation: Decreased LOC, Left facial droop Signs & Symptoms: Last Known Well Last Known Well - Date: 02/15/21 Last Known Well - Time: 99 CT/CTP/CTA: CT Head: Degraded examination without obvious acute intracranial abnormality. CTA head: 1. No occlusion or high-grade stenosis of major intracranial arteries. 2. Mild cerebral white matter disease, likely secondary to chronic microvascular ischemic changes. CTA neck: 1. No flow-limiting stenosis, occlusion, or dissection of the cervical carotid or vertebral arteries. 2. Advanced cervical spondylosis with at least moderate multilevel central spinal stenosis and marked multilevel bilateral neural foraminal stenosis. 3. Hypodense right thyroid nodule. Thyroid ultrasound could be performed for further evaluation if indicated. Door to CTA/CTP Reason for Delay: Needed IV Therapy for IV Access BP: 175/121 (02/15 0440) Temp: 36.6 C (97.9 F) (02/16 440) Pulse: 123 (02/15 0440) Respirations: 20 PER MINUTE (02/15 0440) SpO2: 92 % (02/15 0440) SpO2 Pulse: 98 (02/14 1500) NIHSS Completed at: 0435 NIH Stroke Scale Item Scoring Definition Score 1a. LOC 0=alert and responsive 1=arousable to minor stimulation 2=arousable only to painful stimulation 3=reflex responses or unrousable 2 1b. LOC questions-as patients age and month. Must be exact. 0=both correct 1=one correct (or dysarthria, intubated, foreign language) 2=neither correct 0 1c. Commands-open/close eyes, preschool program director and release non-paretic hand (other 1 step co mmands or mimic OK) 0=both correct (ok if impaired by weakness) 1=one correct 2=neither correct 2 2. Best Gaze-horizontal EOM by voluntary or Dolls 0=normal 1=partial gaze palsy (abnormal gaze in one or both eyes) 2=forced eye deviation or total paresis which cannot be overcome by Dolls 0 3. Visual Field-use visual threat if necessary. If monocular, score field of goo d eye 0=no visual loss 1=partial hemianopia, quadrantanopia, extinction 2=complete hemianopia 3=bilateral hemianopia or blindness 0 4. Facial Palsy-if stuporous, check symmetry of grimace to pain 0=normal 1=minor paralysis, flat NLF, asymm smile 2=partial paralysis (lower face=UMN) 3=complete paralysis (upper and lower face) 1 5. Motor Arm-arms outstretched 90 deg (sitting) or 45 deg (supine) for 10 second s. Encourage best effort. 0=no drift x 10 seconds 1=drift but doesnt hit bed 2=some antigravity effort, but cant sustain 3=no antigravity effort, but even minimal mvt counts 4=no movement at all X=unable to assess due to amputation, fusion, etc L/R 1/ 6. Motor Leg-raise leg to 30 degrees supine x 5 seconds 0=no drift x 5 seconds 1=drift but doesnt hit bed 2=some antigravity effort, but cant sustain 3=no antigravity effort, but even minimal mvt counts 4=no movement at all X=unable to assess due to amputation, fusion, etc L/R 3/3 7. Limb Ataxia-check finger-nose- finger; heel-huang; and score only if out of pr oportion to paralysis 0=no ataxia (or aphasic, hemiplegic) 1=ataxia in upper or lower extremity 2=ataxia in upper AND lower extremity X=unable to assess due to amputation, fusion, etc X 8. Sensory-use safety pin. Check grimace or withdrawal if stuporous. Score only stroke- related losses 0=normal 1=mild-mod unilateral loss but patient aware of touch 9or aphasic, confused) 2=total loss, pt unaware of touch. Coma, bilateral loss 0 9. Best Language-describe cookie jar picture, name objects, read sentences. May use repeating, writing, stereognosis 0=normal 1=mild-mod aphasia (diff but partly comprehensible) 2=severe aphasia (almost no info exchanged) 3=mute, global aphasia, coma. No 1 step commands 2 10. Dysarthria-read list of words 0=normal 1=mild-mod; slurred but intelligible 2=severe; unintelligible or mute 0 11. Extinction/Neglect- simultaneously touch patient on both hands, show fingers in both visual levy, ask about deficit, left hand 0=normal, none detected. ( visual loss alone) 1=neglects or extinguishes to double simult stimulation in any modality 2=profound neglect in more than one modality 0 Score 15 Was IV tPA given? No The patient was not a tPA candidate due to Time of onset of symptoms or last kno wn normal >4.5 hours Advanced imaging was interpreted at 5:36 AM The patient was not a thrombectomy candidate due to no LVO. Dysphagia screen: Did Patient Pass The Swallow Screen Part I?: No If "No" Name of Physician Notified: Dr. Acuna Performed by nursing staff and Failed screen by nursing staff and awaiting ST ev aluation Cardiac rhythm on presentation: Afib w/RVR Health History No past medical history on file. No past surgical history on file. No family history on file. Social History Socioeconomic History Marital status: Spouse name: Not on file Number of children: Not on file Years of education: Not on file Highest education level: Not on file Occupational History Not on file Tobacco Use Smoking status: Never Smoker Smokeless tobacco: Never Used Substance and Sexual Activity Alcohol use: Not Currently Drug use: Not on file Sexual activity: Not on file Other Topics Concern Not on file Social History Narrative Not on file Medications: acetaminophen (TYLENOL) tablet 650 mg, 650 mg, Oral, Q6H* ceFAZolin (ANCEF) IVP 2 g, 2 g, Intravenous, Q8H* enoxaparin (LOVENOX) syringe 30 mg, 30 mg, Subcutaneous, BID gentamicin 0.3 % ophthalmic solution 1 drop, 1 drop, Both Eyes, Q4H methocarbamoL (ROBAXIN) tablet 750 mg, 750 mg, Oral, TID metoprolol tartrate tablet 25 mg, 25 mg, Oral, BID polyethylene glycol 3350 (MIRALAX) packet 17 g, 1 packet, Oral, QDAY rOPINIRole (REQUIP) tablet 1.5 mg, 1.5 mg, Oral, QDAY (See eMAR) senna/docusate (SENOKOT-S) tablet 1 tablet, 1 tablet, Oral, BID PRN Medications: fentaNYL citrate PF Q1H PRN, ondansetron (ZOFRAN) IV Q6H PRN, oxyCODONE Q4H PRN Physical Exam HEENT: normocephalic, eyes open with no discharge, nares patent, oropharynx is c lear with no lesions, palate intact CV: tachycardic, irregular rhythmn, distal pulses palpable Chest: normal configuration, equal chest rise bilaterally Ab: soft, non-tender Skin: no rashes or lesions Extended Neuro Exam: Mental status: lethargic, initially did not follow commands but after activation able to state name, age, location, and situational questions Speech: no dysarthria Cranial Nerves: Normal Abnormal II x III, IV, x V x VII X - mild R nasolabial fold diminished, correctable a nd not present at rest VIII x IX, X x XI x XII x Muscle/motor: Tone: nml Bulk: nml NF NE SA EF EE WE WF FF FE FA TA HF [place] HE KF KE DF PF R 5 5 5 5 5 2 2 2 5 5 L 5 5 5 5 5 3+ 3 3 5 5 Sensation: Normal RUE LUE RLE LLE Light Touch x Pin Prick x Temperature Vibration Proprioception Coordination: Normal Abnormal Right Abnormal Left Finger to Nose x Rapid alternating Heel to Huang Finger tap Foot tap Gait and Sation: deferred Lab/Radiology/Other Diagnostic Tests: Hematology: Lab Results Component Value Date HGB 10.1 02/15/2021 HCT 29.1 02/15/2021 PLTCT 148 02/15/2021 WBC 10.0 02/15/2021 MCV 97.2 02/15/2021 MCHC 34.8 02/15/2021 MPV 8.3 02/15/2021 RDW 13.0 02/15/2021 , Coagulation: No results found for: PT, PTT, INR and General Chemistry: Lab Results Component Value Date NA 135 02/15/2021 K 4.4 02/15/2021 CL 100 02/15/2021 GAP 8 02/15/2021 BUN 27 02/15/2021 CR 0.67 02/15/2021 GLU 140 02/15/2021 CA 8.5 02/15/2021 ALBUMIN 3.3 02/15/2021 MG 2.2 02/15/2021 TOTBILI 0.7 02/15/2021 Glucose: (!) 140 (02/15/21 0421) POC Glucose (Download): (!) 159 (02/15/21 0431) Pertinent radiology reviewed., EKG Reviewed Associated attestation - Ce Joaquin MD - 02/15/2021 1:04 PM CDT ATTESTATION I personally performed the haji portions of the E/M visit, discussed case with re sident and concur with resident documentation of history, physical exam, assessm ent, and treatment plan unless otherwise noted. Pt is resting quietly in bed this afternoon. She is alert and oriented to perso n, place, year, situation. Stroke team will sign off. Clinical picture was lik hazel from medication/lack of sleep/post anesthesia etc. Staff name: Ce Joaquin MD Date: 02/15/2021 * Acute Stroke Response - Daniel Walker RN - 02/15/2021 5:40 AM CDT RN Stroke Activation Summary Date of Service: 02/15/2021 West Cerna is a 85 y.o. female. : 1935 MR N#: [id number] Allergies: Codeine and Lisinopril ASRT Arrival: 426 Location of Response : 5244 Page Received: 4924 Clinical Presentation: Decreased LOC, Left facial droop Total Stroke Scale Score: 15 Signs & Symptoms: Last Known Well Last Known Well - Date: 02/15/21 Last Known Well - Time: 0100 Dysphagia screen: Did Patient Pass The Swallow Screen Part I?: No If "No" Name of Physician Notified: Dr. Acuna Assessment & Plan Summary: Patient has a PMH of Afib and a Right femur fx for which she was admit eufemia for. Patient was lethargic and not following commands upon stroke team arriv al but exam improved while in CT. NIH completed, SDS completed, CT head & CTA completed. Radiology/Interventional Delay Decision to IR: No Delays: Yes Door to CTA/CTP Reason for Delay: Needed IV Therapy for IV Access N/A Plan: Trauma Service to continue to medically manage. Keep NPO until speech can evaluate. RN handoff: HARVEY Alvarado History of Present Illness No past medical history on file. No past surgical history on file. Social History Socioeconomic History Marital status: Spouse name: Not on file Number of children: Not on file Years of education: Not on file Highest education level: Not on file Occupational History Not on file Tobacco Use Smoking status: Never Smoker Smokeless tobacco: Never Used Substance and Sexual Activity Alcohol use: Not Currently Drug use: Not on file Sexual activity: Not on file Other Topics Concern Not on file Social History Narrative Not on file Daniel Walker RN * Procedures (Immed Post or Bedside) - Ryan Farrell MD - 02/14/2021 5:34 PM CDT Brief Operative Note Name: West Cerna is a 85 y.o. female : 1935 DATE OF OPERATION: 02/14/2021 Date: 02/14/2021 Preoperative Dx: Trauma [T14.90XA] Post-op Diagnosis * Trauma [T14.90XA] Procedure(s) (LRB): TREATMENT INTERTROCHANTERIC/ PERITROCHANTERIC/ SUBTROCHANTERIC FEMORAL FRACTURE WITH INTERMEDULLARY IMPLANT WITH/ WITHOUT INTERLOCKING SCREWS/ CERCLAGE (Right) Surgeon(s) and Role: * Alexandr Zapata MD - Primary * Ryan Farrell MD - Resident - Assisting Findings: R hip CMN Estimated Blood Loss: 200 ml Specimen(s) Removed/Disposition: * No specimens in log * Complications: None Implants: Implant Name Type Inv. Item Serial No. Medical Advisor Lot No. [id number] No. Used Action NAIL 12MM 360MM FEMORAL RIGHT PROXIMAL TFN-ADVANCED LATERAL - [id number] NAIL 12MM 360MM FEMORAL RIGHT PROXIMAL TFN-ADVANCED LATERAL [id number] SY[employer] [facility] [id number] Right 1 Implanted BLADE INTRAMEDULLARY NAIL NGUYEN 90MM 10.35MM TFN-ADVANCED - [id number] BLADE IN TRAMEDULLARY NAIL NGUYEN 90MM 10.35MM TFN-ADVANCED [id number] [employer]PU[employer] 116 [id number] Right 1 Implanted SCREW BONE 5MM 8MM 44MM TITANIUM FULL THREAD FEMUR BLUNT TIP - [id number] SCREW B ONE 5MM 8MM 44MM TITANIUM FULL THREAD FEMUR BLUNT TIP [id number] DEPUY SYNTHES CO X Right 1 Implanted SCREW BONE 5MM 8MM 48MM TITANIUM FULL THREAD FEMUR BLUNT TIP - [id number] SCREW B ONE 5MM 8MM 48MM TITANIUM FULL THREAD FEMUR BLUNT TIP [id number] DEPUY [employer]NTH[employer] CO X Right 1 Implanted Drains: None Disposition: PACU - stable Ryan Farrell MD Pager [phone] * Care Plan - Jules Mcdaniel RN - 02/14/2021 4:58 PM CDT Problem: Infection, Risk of, Urinary Catheter-Associated Urinary Tract Infection Goal: Absence of urinary catheter-associated infection Outcome: Goal Ongoing Problem: Pain Goal: Management of pain Outcome: Goal Ongoing Goal: Knowledge of pain management Outcome: Goal Ongoing Goal: Progress Toward Pain Management Goals Outcome: Goal Ongoing Problem: Discharge Planning Goal: Participation in plan of care Outcome: Goal Ongoing Goal: Knowledge regarding plan of care Outcome: Goal Ongoing Goal: Prepared for discharge Outcome: Goal Ongoing Problem: High Fall Risk Goal: High Fall Risk Outcome: Goal Ongoing * Operative Report (DICTATED ONLY) - Alexandr Zapata MD - 02/14/2021 2:49 PM CDT THE [address] [id number] PATIENT NAME: WEST CERNA MR#/PT#: [id number] Page 1 OPERATIVE REPORT DATE OF OPERATION: 02/14/2021 SURGEON: Alexandr Zapata MD CO-SURGEON(S): Ryan Farrell MD PREOPERATIVE DIAGNOSIS: Right pertrochanteric hip fracture. POSTOPERATIVE DIAGNOSIS: Same. OPERATIVE PROCEDURE: Cephalomedullary nailing of right pertrochanteric hip fracture. ANESTHESIA: General. INDICATIONS FOR OPERATIVE PROCEDURE: Elderly female who fell and sustained the above-mentioned fracture. She was cou nseled on treatment options and elected to proceed with surgical treatment. She understood the risks of the procedure to include infection, wound complications , nerve or vessel injury, nonunion, malunion, implant-related complications, nee d for subsequent surgical procedures. In addition, I had counseled the patient on the importance of her not falling again and being cautious not to fall again because falling again could result in her sustaining other fracture that could s ignificantly compromise her function and even put her at risk of increased morta lity. DESCRIPTION AND FINDINGS OF OPERATIVE PROCEDURE: The patient's limb was marked in the preoperative holding area. She was taken b ack to the operative suite. Perioperative antibiotics were given within 0.5 tiffany r of incision. She was prescrubbed and prepped and draped in sterile fashion. We then applied traction to the limb and some internal rotation, which seemed to reduce the fracture. We then made a stab incision through the skin approximate ly 15 cm proximal to the greater trochanter. Through this incision, we inserted a 3.2 mm guidepin into the tip of the greater trochanter down the canal of the femur. We verified this on AP and lateral views. We then used a cannulated ent ry reamer to open up the proximal femur. We then inserted a ball-tip guidewire down the canal of the femur. We reamed to a size 13 and we inserted a 12 mm angie meter x 360 mm length trochanteric femoral nail A. we then made a separate inci ratna and through the separate incision, used our entry jig to insert a 3.2 mm gu idepin into the center of the femoral head on the lateral view and into the infe rior 3rd of the femoral head on the AP view. We obtained a measurement. We ope piotr up the lateral cortex. We then performed step-cut reaming, and inserted a 9 0 mm spiral blade. We then placed the set physician non invasive cardiologist on the spiral blade and ba cked it off 1/2 turn. We then drilled, measured, inserted 2 appropriate length distal interlocks. We then irrigated the wounds with normal saline and Betadine , placed in a gram of vancomycin, closed the subdermal layer with interrupted 2- 0 Monocryl, closed the skin with interrupted and running 0 Prolene, dressed the wounds with Xeroform, 4 x 4's, and Tegaderm. ESTIMATED BLOOD LOSS: Approximately 250 mL. SPECIMENS REMOVED: None. Implant used: Synthes trochanteric femoral nail 360 mm in length, 12 mm in diam eter, 90 mm spiral blade was used and 2 distal interlocks. Alexandr Zapata MD / MEDQ /[id number] cc: - Fawn Camargo MD - Alexandr Zapata MD - Ryan Farrell MD * Advanced Care Planning/Resuscitation Status - Larissa Hope MD - 02/14/2021 6:37 AM CDT Advance Care Planning/Resuscitation Status Conversation Individuals present for advance care planning conversation: resident/fellow phys ician Pertinent details of conversation (including direct quotes from patient or surro gate): Patient would like to have all life saving measures possible if she were to code including chest compressions, intubation and cardioversion. Outcome of conversation: Full Code Documents completed as a result of this conversation: None Other documents present, which outline patient/surrogate wishes: None Larissa Hope MD * Care Plan - Jenny Strickland RN - 02/14/2021 4:16 AM CDT Problem: High Fall Risk Goal: High Fall Risk Outcome: Goal Ongoing Flowsheets (Taken 02/14/2021 0415) High Fall Risk: All patients will receive: High fall risk sign, yellow wristband, yellow socks, gait belt, and shower shoes Assess need for bedside commode with drop arm to be available in room Engage bed alarm - middle setting * Care Plan - Jenny Strickland RN - 02/14/2021 2:58 AM CDT Problem: Infection, Risk of, Urinary Catheter-Associated Urinary Tract Infection Goal: Absence of urinary catheter-associated infection Outcome: Goal Ongoing Flowsheets (Taken 02/14/2021 0256) Absence of urinary catheter-associated infections: Manage urinary catheter Assess for signs and sypmtoms of catheter-associated urinary tract infection Problem: Pain Goal: Management of pain Outcome: Goal Ongoing Flowsheets (Taken 02/14/2021 0256) Management of pain: Complete pain assessment scale according to age, condition and ability to under stand. Manage pain. Goal: Knowledge of pain management Outcome: Goal Ongoing Flowsheets (Taken 02/14/2021 025) Knowledge of pain management: Provide pain scale education Provide pharmacological pain management education Goal: Progress Toward Pain Management Goals Outcome: Goal Ongoing Flowsheets (Taken 02/14/2021 025) Progress toward pain management goals: Assess progress toward pain management go als Problem: Discharge Planning Goal: Participation in plan of care Outcome: Goal Ongoing Goal: Knowledge regarding plan of care Outcome: Goal Ongoing Goal: Prepared for discharge Outcome: Goal Ongoing documented in this encounter Plan of Treatment Not on filedocumented as of this encounter Goals Goal Patient Associated Recent Progress Patient-Stat Aut hor Goal Type Problems ed? Remain independent Hospital On track (02/14/2021 Heidi Robles, 8:19 AM CDT) HARVEY Zaldivar documented as of this encounter Procedures Comments Procedure Name Priority Date/Time Associated Diag nosis HC CBC,AUTOMATED Routine 02/18/2021 5:09 AM CDT HC PHOSPHOROUS, SERUM Routine 02/18/2021 5:09 AM CDT HC MAGNESIUM Routine 02/18/2021 5:09 AM CDT HC COMPREHENSIVE Routine 02/18/2021 METABOLIC PANEL 5:09 AM CDT HC TSH SCREEN Add on 02/17/2021 2:58 AM CDT HC CBC,AUTOMATED Routine 02/17/2021 2:58 AM CDT HC PHOSPHOROUS, SERUM Routine 02/17/2021 2:58 AM CDT HC MAGNESIUM Routine 02/17/2021 2:58 AM CDT HC COMPREHENSIVE Routine 02/17/2021 METABOLIC PANEL 2:58 AM CDT HC IRON BINDING CAPACITY Add on 02/16/2021 + %SAT 4:18 AM CDT HC CBC,AUTOMATED Routine 02/16/2021 4:18 AM CDT HC PHOSPHOROUS, SERUM Routine 02/16/2021 4:18 AM CDT HC MAGNESIUM Routine 02/16/2021 4:18 AM CDT HC COMPREHENSIVE Routine 02/16/2021 METABOLIC PANEL 4:18 AM CDT CTA NECK WO/W STAT 02/15/2021 CONTRAST+POST P 5:13 AM CDT CTA HEAD WO/W CONTR+POST STAT 02/15/2021 PRO 5:[address] HEAD WO CONTRAST STAT 02/15/2021 4:46 AM CDT POC GLUCOSE 02/15/2021 4:31 AM CDT HC CBC,AUTOMATED Routine 02/15/2021 4:21 AM CDT HC PHOSPHOROUS, SERUM Routine 02/15/2021 4:21 AM CDT HC MAGNESIUM Routine 02/15/2021 4:21 AM CDT HC COMPREHENSIVE Routine 02/15/2021 METABOLIC PANEL 4:21 AM CDT FLUORO MOBILE IN OR Routine 02/14/2021 2:34 PM CDT TREATMENT 02/14/2021 Trauma INTERTROCHANTERIC/ 12:25 PM CDT PERITROCHANTERIC/ SUBTROCHANTERIC FEMORAL FRACTURE WITH INTERMEDULLARY IMPLANT WITH/ WITHOUT INTERLOCKING SCREWS/ CERCLAGE HC BLOOD TYPING, ABO Routine 02/14/2021 CONFIRM 91 4:48 AM CDT TYPE & CROSSMATCH MICHELLE 02/14/2021 4:29 AM CDT HC CBC,AUTOMATED Routine 02/14/2021 4:28 AM CDT HC PHOSPHOROUS, SERUM Routine 02/14/2021 4:28 AM CDT HC MAGNESIUM Routine 02/14/2021 4:28 AM CDT HC COMPREHENSIVE Routine 02/14/2021 METABOLIC PANEL 4:28 AM CDT COVID-19 (SARS-COV-2) PCR Routine 02/13/2021 11:00 PM CDT HC CBC,AUTOMATED STAT 02/13/2021 11:00 PM CDT HC PHOSPHOROUS, SERUM STAT 02/13/2021 11:00 PM CDT HC MAGNESIUM STAT 02/13/2021 11:00 PM CDT HC COMPREHENSIVE STAT 02/13/2021 METABOLIC PANEL 11:00 PM CDT TELEMETRY STRIPS-SCAN 02/13/2021 12:00 AM CDT ECG-SCAN 02/13/2021 12:00 AM CDT documented in this encounter Results * PHOSPHORUS (02/18/2021 5:09 AM CDT) Phosphorus 2.8 2.0 - 4.5 MG/DL [facility] Specimen Blood Performing Organization Address City/[facility]/ZIP Code P xochitl Number MAIN LAB [address] [place] [address] * MAGNESIUM (02/18/2021 5:09 AM CDT) Magnesium 2.0 1.6 - 2.6 mg/dL [facility] Specimen Blood Performing Organization Address City/[facility]/ZIP Code P xochitl Number [facility] [address] [place] [address] * COMPREHENSIVE METABOLIC PANEL (02/18/2021 5:09 AM CDT) Sodium 135 (L) 137 - 147 MMOL/L [...] >60 >60 mL/min [facility] Comment: [place] The eGFR is not validated f or use in drug dosing adjustments. Continue to use estimated creatinine clearance per dosing reference text. Please contact the Clinical Pharmacist for questions. eGFR >60 >60 mL/min [facility] [place] Comment: The eGFR is not validated for use in drug dosing adjustments. Continue to use estimated creatinine clearance per dosing reference text. Please contact the Clinical Pharmacist for questions. Specimen Blood Performing Organization Address City/State/ZIP Code P xochitl Number [facility] [address] [place] [address] * CBC (02/18/2021 5:09 AM CDT) White Blood 7.2 4.5 - 11.0 K/UL [...] MAIN LAB Specimen Blood Performing Organization Address City/[facility]/ZIP Code P xochitl Number [facility] [address] [place] [address] * TSH WITH FREE T4 REFLEX (02/17/2021 2:58 AM CDT) TSH 1.92 0.35 - 5.00 MCU/ML [facility] Specimen Performing Organization Address City/[facility]/ZIP Code P xochitl Number [facility] [address] [place] [address] * PHOSPHORUS (02/17/2021 2:58 AM CDT) Phosphorus 2.4 2.0 - 4.5 MG/DL [facility] Specimen Blood Performing Organization Address [facility] Code P xochitl Number [facility] [address] [place] [address] * MAGNESIUM (02/17/2021 2:58 AM CDT) Magnesium 1.9 1.6 - 2.6 mg/dL [facility] Specimen Blood Performing Organization Address [facility] P xochitl Number [facility] [address] [place] [address] * COMPREHENSIVE METABOLIC PANEL (02/17/2021 2:58 AM CDT) Sodium 137 137 - 147 MMOL/L [facility] Potassium 3.7 3.5 - 5.1 MMOL/L [facility] Chloride 102 98 - 110 MMOL/L [facility] Glucose 119 (H) 70 - 100 MG/DL [facility] Blood Urea 14 7 - 25 MG/DL [facility] Nitrogen Creatinine 0.42 0.4 - 1.00 MG/DL [facility] Calcium 8.4 (L) 8.5 - 10.6 MG/DL [facility] Total Protein 5.5 (L) 6.0 - 8.0 G/DL [facility] Total Bilirubin 1.0 0.3 - 1.2 MG/DL [facility] Albumin 3.2 (L) 3.5 - 5.0 G/DL [facility] Alk Phosphatase 66 25 - 110 U/L [facility] AST (SGOT) 17 7 - 40 U/L [facility] CO2 28 21 - 30 MMOL/L [facility] ALT (SGPT) 10 7 - 56 U/L [facility] Anion Gap 7 3 - 12 [facility] eGFR Non >60 >60 mL/min [facility] Comment: [place] The eGFR is not validated f or use in drug dosing adjustments. Continue to use estimated creatinine clearance per dosing reference text. Please contact the Clinical Pharmacist for questions. eGFR >60 >60 mL/min [facility] [place] Comment: The eGFR is not validated for use in drug dosing adjustments. Continue to use estimated creatinine clearance per dosing reference text. Please contact the Clinical Pharmacist for questions. Specimen Blood Performing Organization Address City/[facility]/ZIP Code P xochitl Number [facility] [address] [place] [address] * CBC (02/17/2021 2:58 AM CDT) White Blood 7.0 4.5 - 11.0 K/UL [facility] Cells RBC 2.26 (L) 4.0 - 5.0 M/UL [facility] Hemoglobin 7.6 (L) 12.0 - 15.0 GM/DL [facility] Hematocrit 21.9 (L) 36 - 45 % [facility] MCV 97.1 80 - 100 FL [facility] MCH 33.7 26 - 34 PG [facility] MCHC 34.7 32.0 - 36.0 G/DL [facility] RDW 13.2 11 - 15 % [facility] Platelet Count 142 (L) 150 - 400 K/UL [facility] MPV 8.1 7 - 11 FL [facility] Specimen Blood Performing Organization Address City/[facility] P xochitl Number [facility] [address] [place] [address] * IRON + BINDING CAPACITY + %SAT+ [...] P xochitl Number [facility] [address] [place] [address] * PHOSPHORUS (02/16/2021 4:18 AM CDT) Phosphorus 2.2 2.0 - 4.5 MG/DL [facility] Specimen Blood Performing Organization Address City/State/ZIP Code P xochitl Number [facility] [address] [place] [address] * MAGNESIUM (02/16/2021 4:18 AM CDT) Magnesium 1.9Comment: SLT HEMOLYSIS 1.6 - 2.6 mg/dL [facility] Specimen Blood Performing Organization Address City/State/ZIP Code P xochitl Number [facility] [address] [place] [address] * COMPREHENSIVE METABOLIC PANEL (02/16/2021 4:18 AM CDT) Sodium 136 (L) 137 - 147 MMOL/L [facility] Potassium 4.5Comment: SLT HEMOLYSIS 3.5 - 5.1 MMOL/L [facility] Chloride 101 98 - 110 MMOL/L [facility] Glucose 109 (H) 70 - 100 MG/DL [facility] Blood Urea 15 7 - 25 MG/DL [facility] Nitrogen Creatinine 0.47 0.4 - 1.00 MG/DL [facility] Calcium 8.0 (L) 8.5 - 10.6 MG/DL [facility] Total Protein 5.4 (L) 6.0 - 8.0 G/DL [facility] Total Bilirubin 0.7 0.3 - 1.2 MG/DL [facility] Albumin 3.0 (L) 3.5 - 5.0 G/DL [facility] Alk Phosphatase 56 25 - 110 U/L [facility] AST (SGOT) 25 7 - 40 U/L [facility] CO2 29 21 - 30 MMOL/L [facility] ALT (SGPT) 9 7 - 56 U/L [facility] Anion Gap 6 3 - 12 [facility] eGFR Non >60 >60 mL/min [facility] Comment: [place] The eGFR is not validated f or use in drug dosing adjustments. Continue to use estimated creatinine clearance per dosing reference text. Please contact the Clinical Pharmacist for questions. eGFR >60 >60 mL/min [facility] [place] Comment: The eGFR is not validated for use in drug dosing adjustments. Continue to use estimated creatinine clearance per dosing reference text. Please contact the Clinical Pharmacist for questions. Specimen Blood Performing Organization Address City/State/ZIP Code P xochitl Number [facility] [address] [place] [address] * CBC (02/16/2021 4:18 AM CDT) White Blood 8.2 4.5 - 11.0 K/UL [facility] Cells RBC 2.31 (L) 4.0 - 5.0 M/UL [facility] Hemoglobin 7.8 (L) 12.0 - 15.0 GM/DL [facility] Hematocrit 22.5 (L) 36 - 45 % [facility] MCV 97.7 80 - 100 FL [facility] MCH 33.7 26 - 34 PG [facility] MCHC 34.5 32.0 - 36.0 G/DL [facility] RDW 13.2 11 - 15 % [facility] Platelet Count 138 (L) 150 - 400 K/UL [facility] MPV 9.0 7 - 11 FL [facility] Specimen Blood Performing Organization Address City/State/ZIP Code P xochitl Number [facility] [address] [place] [address] * CTA NECK WO/W CONTRAST+POST P (02/15/2021 [...] 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 No aneurysm or arteriovenous malformation is identified. [...] focal narrowing. 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 No aneurysm or arteriovenous malformation is identified. [...] on 02/15/2021 6:07 AM. Dictated by Jason Macdams MD on 02/15/2021 5:25 AM . 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 No aneurysm or arteriovenous malformation is identified. [...] focal narrowing. 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 No aneurysm or arteriovenous malformation is identified. [...] on 02/15/2021 4:47 AM. Performing Organization Address City/[facility]/ZIP Code P xochitl Number [facility] RAD RESULTS * POC GLUCOSE (02/15/2021 4:31 AM CDT) Glucose, POC 159 (H) 70 - 100 MG/DL [facility] Specimen Performing Organization Address [facility] P xochitl Number [facility] [address] [place] [address] * PHOSPHORUS (02/15/2021 4:21 AM CDT) Phosphorus 3.2 2.0 - 4.5 MG/DL [facility] Specimen Blood Performing Organization Address [facility] P xochitl Number [facility] [address] [place] [address] * MAGNESIUM (02/15/2021 4:21 AM CDT) Magnesium 2.2 1.6 - 2.6 mg/dL [facility] Specimen Blood Performing Organization Address [facility] P xochitl Number [facility] [address] [place] [address] * COMPREHENSIVE METABOLIC PANEL (02/15/2021 4:21 AM CDT) Sodium 135 (L) 137 - 147 MMOL/L [facility] Potassium 4.4 3.5 - 5.1 MMOL/L [facility] Chloride 100 98 - 110 MMOL/L [facility] Glucose 140 (H) 70 - 100 MG/DL [facility] Blood Urea 27 (H) 7 - 25 MG/DL [facility] Nitrogen Creatinine 0.67 0.4 - 1.00 MG/DL [facility] Calcium 8.5 8.5 - 10.6 MG/DL [facility] Total Protein 5.7 (L) 6.0 - 8.0 G/DL [facility] Total Bilirubin 0.7 0.3 - 1.2 MG/DL [facility] Albumin 3.3 (L) 3.5 - 5.0 G/DL [facility] Alk Phosphatase 57 25 - 110 U/L [facility] AST (SGOT) 16 7 - 40 U/L [facility] CO2 27 21 - 30 MMOL/L [facility] ALT (SGPT) 13 7 - 56 U/L [facility] Anion Gap 8 3 - 12 [facility] eGFR Non >60 >60 mL/min [facility] Comment: [place] The eGFR is not validated f or use in drug dosing adjustments. Continue to use estimated creatinine clearance per dosing reference text. Please contact the Clinical Pharmacist for questions. eGFR >60 >60 mL/min [facility] [place] Comment: The eGFR is not validated for use in drug dosing adjustments. Continue to use estimated creatinine clearance per dosing reference text. Please contact the Clinical Pharmacist for questions. Specimen Blood Performing Organization Address City/State/ZIP Code P xochitl Number [facility] [address] [place] [address] * CBC (02/15/2021 4:21 AM CDT) White Blood 10.0 4.5 - 11.0 K/UL [facility] Cells RBC 2.99 (L) 4.0 - 5.0 M/UL [facility] Hemoglobin 10.1 (L) 12.0 - 15.0 GM/DL [facility] Hematocrit 29.1 (L) 36 - 45 % [facility] MCV 97.2 80 - 100 FL [facility] MCH 33.8 26 - 34 PG [facility] MCHC 34.8 32.0 - 36.0 G/DL [facility] RDW 13.0 11 - 15 % [facility] Platelet Count 148 (L) 150 - 400 K/UL [facility] MPV 8.3 7 - 11 FL [facility] Specimen Blood Performing Organization Address City/State/ZIP Code P xochitl Number [facility] [address] [place] [address] * FLUORO MOBILE IN OR (02/14/2021 2:34 PM CDT) Specimen Narrative Performed At This order has been auto finalized and does not conta in a result. [facility] Performing Organization Address City/[facility]/ZIP Code P xochitl Number [facility] * BLOOD TYPE CONFIRMATION - ORDER ONLY IF REQUESTED BY LAB (02/14/2021 4:48 AM CDT) ABO/RH(D) O POS [facility] Specimen Blood,Peripheral Performing Organization Address City/[facility]/ZIP Code P xochitl Number [facility] [address] [place] [address] * TYPE & CROSSMATCH (02/14/2021 4:29 AM CDT) Units Ordered 0 [facility] Crossmatch 02/17/2021,2359 [facility] Expires Record Check 2ND TYPE REQUIRED [facility] ABO/RH(D) O POS [facility] Antibody Screen NEG [facility] Electronic YES [facility] Crossmatch Specimen Blood,Peripheral Performing Organization Address City/[facility]/ZIP Code P xochitl Number [facility] [address] [place] [address] * PHOSPHORUS (02/14/2021 4:28 AM CDT) Phosphorus 3.7 2.0 - 4.5 MG/DL [facility] Specimen Blood Performing Organization Address City/[facility]/ZIP Code P xochitl Number [facility] [address] [place] [address] * MAGNESIUM (02/14/2021 4:28 AM CDT) Magnesium 1.6 1.6 - 2.6 mg/dL [facility] Specimen Blood Performing Organization Address City/[facility]/ZIP Code P xochitl Number [facility] [address] [place] [address] * COMPREHENSIVE METABOLIC PANEL (02/14/2021 4:28 AM CDT) Sodium 138 137 - 147 MMOL/L [facility] Potassium 4.2 3.5 - 5.1 MMOL/L [facility] Chloride 102 98 - 110 MMOL/L [facility] Glucose 107 (H) 70 - 100 MG/DL [facility] Blood Urea 21 7 - 25 MG/DL [facility] Nitrogen Creatinine 0.54 0.4 - 1.00 MG/DL [facility] Calcium 9.0 8.5 - 10.6 MG/DL [facility] Total Protein 6.0 6.0 - 8.0 G/DL [facility] Total Bilirubin 1.0 0.3 - 1.2 MG/DL [facility] Albumin 3.4 (L) 3.5 - 5.0 G/DL [facility] Alk Phosphatase 63 25 - 110 U/L [facility] AST (SGOT) 17 7 - 40 U/L [facility] CO2 27 21 - 30 MMOL/L [facility] ALT (SGPT) 15 7 - 56 U/L [facility] Anion Gap 9 3 - 12 [facility] eGFR Non >60 >60 mL/min [facility] Comment: [place] The eGFR is not validated f or use in drug dosing adjustments. Continue to use estimated creatinine clearance per dosing reference text. Please contact the Clinical Pharmacist for questions. eGFR >60 >60 mL/min [facility] [place] Comment: The eGFR is not validated for use in drug dosing adjustments. Continue to use estimated creatinine clearance per dosing reference text. Please contact the Clinical Pharmacist for questions. Specimen Blood Performing Organization Address City/State/ZIP Code P xochitl Number [facility] [address] [place] [address] * CBC (02/14/2021 4:28 AM CDT) White Blood 8.6 4.5 - 11.0 K/UL [facility] Cells RBC 3.52 (L) 4.0 - 5.0 M/UL [facility] Hemoglobin 12.0 12.0 - 15.0 GM/DL [facility] Hematocrit 34.3 (L) 36 - 45 % [facility] MCV 97.3 80 - 100 FL [facility] MCH 33.9 26 - 34 PG [facility] MCHC 34.9 32.0 - 36.0 G/DL [facility] RDW 13.0 11 - 15 % [facility] Platelet Count 145 (L) 150 - 400 K/UL [facility] MPV 8.3 7 - 11 FL [facility] Specimen Blood Performing Organization Address City/[facility]/ZIP Code P xochitl Number [facility] [address] [place] [address] * PHOSPHORUS (02/13/2021 11:00 PM CDT) Phosphorus 3.6 2.0 - 4.5 MG/DL [facility] Specimen Blood Performing Organization Address City/[facility]/ZIP Code P xochitl Number [facility] [address] [place] [address] * MAGNESIUM (02/13/2021 11:00 PM CDT) Magnesium 1.8 1.6 - 2.6 mg/dL [facility] Specimen Blood Performing Organization Address City/[facility]/ZIP Code P xochitl Number [facility] [address] [place] [id number] * COMPREHENSIVE METABOLIC PANEL (02/13/2021 11:00 PM CDT) Sodium 139 137 - 147 MMOL/L [facility] Potassium 4.3 3.5 - 5.1 MMOL/L [facility] Chloride 101 98 - 110 MMOL/L [facility] Glucose 110 (H) 70 - 100 MG/DL [facility] Blood Urea 22 7 - 25 MG/DL [facility] Nitrogen Creatinine 0.57 0.4 - 1.00 MG/DL [facility] Calcium 9.6 8.5 - 10.6 MG/DL [facility] Total Protein 7.1 6.0 - 8.0 G/DL [facility] Total Bilirubin 0.8 0.3 - 1.2 MG/DL [facility] Albumin 4.1 3.5 - 5.0 G/DL [facility] Alk Phosphatase 81 25 - 110 U/L [facility] AST (SGOT) 21 7 - 40 U/L [facility] CO2 27 21 - 30 MMOL/L [facility] ALT (SGPT) 19 7 - 56 U/L [facility] Anion Gap 11 3 - 12 [facility] eGFR Non >60 >60 mL/min [facility] Comment: [place] The eGFR is not validated f or use in drug dosing adjustments. Continue to use estimated creatinine clearance per dosing reference text. Please contact the Clinical Pharmacist for questions. eGFR >60 >60 mL/min [facility] [place] Comment: The eGFR is not validated for use in drug dosing adjustments. Continue to use estimated creatinine clearance per dosing reference text. Please contact the Clinical Pharmacist for questions. Specimen Blood Performing Organization Address City/[facility]/ZIP Code P xochitl Number [facility] [address] [place] [address] * CBC (02/13/2021 11:00 PM CDT) White Blood 10.0 4.5 - 11.0 K/UL [facility] Cells RBC 4.16 4.0 - 5.0 M/UL [facility] Hemoglobin 13.7 12.0 - 15.0 GM/DL [facility] Hematocrit 41.0 36 - 45 % [facility] MCV 98.5 80 - 100 FL [facility] MCH 32.9 26 - 34 PG [facility] MCHC 33.4 32.0 - 36.0 G/DL [facility] RDW 12.7 11 - 15 % [facility] Platelet Count 165 150 - 400 K/UL [facility] MPV 8.1 7 - 11 FL [facility] Specimen Blood Performing Organization Address City/[facility] P xochitl Number MAIN LAB [address] [place] [address] * COVID-19 (SARS-COV-2) PCR (02/13/2021 11:00 PM CDT) COVID-19 FLOCKED SWAB [facility] (SARS-CoV-2) NASOPHARYNGEAL PCR Source COVID-19 NOT DETECTED DN-NOT DETECTED [facility] (SARS-CoV-2) Comment: PCR This assay is designed [...] performance characteristics have been verified by the [facility]. Fact sheet for providers: https://www.fda.gov/media/6620 85/download Fact sheet for patients: https://www.fda.gov/media/7009 87/download Specimen Flocked Swab - Nasopharyngeal Performing Organization Address City/State/ZIP Code P xochitl Number [facility] [address] [place] [address] * ECG-SCAN (02/13/2021 12:00 AM CDT) Narrative Performed At This result has an attachment that is n ot available. Ordered by an unspecified provider. * TELEMETRY STRIPS-SCAN (02/13/2021 12:00 AM CDT) Narrative Performed At This result has an attachment that is n ot available. Ordered by an unspecified provider. documented in this encounter Visit Diagnoses Diagnosis Trauma - Primary Injury, other and unspecified, unspecif ied site Closed fracture of right hip, initial e ncounter (HCC) Fall, initial encounter Chronic anticoagulation Long-term (current) use of anticoagulan ts Atrial fibrillation, chronic (HCC) Atrial fibrillation Essential hypertension Unspecified essential hypertension Restless leg syndrome Restless legs syndrome (RLS) Impaired mobility and activities of jasiel ly living Mechanical problems with limbs Acute traumatic pain Acute pain due to trauma Hypomagnesemia Disorders of magnesium metabolism Frailty syndrome in geriatric patient Gait instability Abnormality of gait Hip fracture ([facility]) Closed fracture of unspecified part of neck of femur Class 2 severe obesity with serious com orbidity in adult ([facility]) documented in this encounter Admitting Diagnoses Diagnosis Trauma Injury, other and unspecified, unspecif ied site documented in this encounter Administered Medications Action Date Dose Rate Site Medication Order MAR Action 02/14/2021 3:23 PM CDT 1,000 mg acetaminophen (TYLENOL EXTRA STRENGTH) Given tablet 1,000 mg 1,000 mg, Oral, ONCE, 1 dose, On 02/14/21 at 1530, TOTAL ACETAMINOPHEN DOSE NOT TO EXCEED 4GM DAILY 02/14/2021 12:18 AM CDT 650 mg acetaminophen (TYLENOL) tablet 650 mg Given 650 mg, Oral, EVERY 4 HOURS PRN, Starting on 02/14/21 at 0001, Until 02/14/21 at 1830, Pain non-opioid: may be used alone or in combination wit h opioid analgesia, TOTAL ACETAMINOPHEN DOSE NOT TO EXCEED 4GM DAILY 02/19/2021 2:16 PM CDT 650 mg acetaminophen (TYLENOL) tablet 650 mg Given 650 mg, Oral, EVERY 6 HOURS, First dos e (after last modification) on Sat 1 at 2100, Until Discontinued, TOTAL ACETAMINOPHEN DOSE NOT TO EXCEED 4GM DAILY 650 mg Given 02/19/2021 8:48 AM CDT 650 mg Given 02/18/2021 9:18 PM CDT 650 mg Given 02/18/2021 4:14 PM CDT 650 mg Given 02/18/2021 8:03 AM CDT 650 mg Given 02/17/2021 8:55 PM CDT 650 mg Given 02/17/2021 2:49 PM CDT 650 mg Given 02/17/2021 9:33 AM CDT 650 mg Given 02/17/2021 2:55 AM CDT 650 mg Given 02/16/2021 8:15 PM CDT 650 mg Given 02/16/2021 2:19 PM CDT 650 mg Given 02/16/2021 8:31 AM CDT 650 mg Given 02/16/2021 4:08 AM CDT 650 mg Given 02/15/2021 10:44 PM CDT 650 mg Given 02/15/2021 3:27 PM CDT 650 mg Given 02/15/2021 8:18 AM CDT 650 mg Given 02/14/2021 9:27 PM CDT bisacodyL (DULCOLAX) rectal suppository 10 mg 10 mg, Rectal, DAILY PRN, Starting on Tue02/17/21 at 1427, Until Tue02/20/21 at 0026, Constipation FL, Hold for loos e stools 02/15/2021 12:43 PM CDT 2 g ceFAZolin (ANCEF) IVP 2 g Given 2 g, Intravenous, EVERY 8 HOURS, 3 doses, First dose on 02/14/21 at 2100, Last dose on 02/15/21 at 1300, IV PUSH -- RECONSTITUTE each 1 g vial b y adding 10 mLs of STERILE WATER (SW) 2 g Given 02/15/2021 6:01 AM CDT 2 g Given 02/14/2021 9:27 PM CDT diphenhydrAMINE (BENADRYL) injection 25 mg 25 mg, Intravenous, EVERY 4 HOURS PRN, Starting on Tue02/17/21 at 0904, Until Tue02/20/21 at 0026, Other..., IV iron infusion-related urticaria, If symptoms are rapidly progressing or continue after diphenhydramine, give epinephrine . 02/19/2021 8:47 AM CDT 100 mg Arm, Lef t enoxaparin (LOVENOX) syringe 100 mg Given 100 mg (rounded from 105 mg = 1 mg/kg 105 kg), Subcutaneous, TWICE DAILY, First dose on Tue02/18/21 at 1730, Unti l Discontinued, For patients undergoing surgery: Consult physician in advance - - enoxaparin is an anticoagulant and may need to be held for 12hr prior to surgery or invasive procedures. NOTE: This is a HIGH ALERT Medication. 100 mg Arm, Left Given 02/18/2021 5:28 PM CDT 02/15/2021 8:18 AM CDT 30 mg Abdomen: LLQ enoxaparin (LOVENOX) syringe 30 mg Given 30 mg, Subcutaneous, TWICE DAILY, First dose on 02/14/21 at 0900, Until Discontinued, For patients undergoing surgery: Consult physician in advance - - enoxaparin is an anticoagulant and may need to be held for 12hr prior to surgery or invasive procedures. NOTE: This is a HIGH ALERT Medication. 30 mg Arm, Right Given 02/14/2021 9:29 PM CDT EPINEPHrine PF (ADRENALIN) injection 0. 3 mg 0.3 mg, Intramuscular, EVERY 5 MIN PRN , Starting on Tue02/17/21 at 0904, Until Tue02/20/21 at 0026, Other..., iron infusion reaction management or symptom s of anaphylaxis, If symptoms are rapidly progressing or continue after diphenhydramine, or patient has symptom s of anaphylaxis, give epinephrine. Max 4 doses. NOTE: This is a HIGH ALERT Medication. 02/13/2021 10:57 PM CDT 50 mcg fentaNYL citrate PF (SUBLIMAZE) Given injection 25-50 mcg 25-50 mcg, Intravenous, EVERY 1 HOUR PRN, Starting on Tue02/13/21 at 2249, Until Tue02/15/21 at 1726, Pain Injectable 02/19/2021 12:00 PM CDT 1 drop gentamicin 0.3 % ophthalmic solution 1 Given drop 1 drop, Both Eyes, EVERY 4 HOURS, Firs t dose on 02/14/21 at 2000, Until Discontinued 1 drop Given 02/19/2021 8:48 AM CDT 1 drop Given 02/18/2021 11:36 PM CDT 1 drop Given 02/18/2021 5:28 PM CDT 1 drop Given 02/18/2021 11:59 AM CDT 1 drop Given 02/18/2021 9:00 AM CDT 1 drop Given 02/18/2021 4:44 AM CDT 1 drop Given 02/18/2021 1:07 AM CDT 1 drop Given 02/17/2021 8:55 PM CDT 1 drop Given 02/17/2021 5:21 PM CDT 1 drop Given 02/17/2021 12:09 PM CDT 1 drop Given 02/17/2021 9:32 AM CDT 1 drop Given 02/17/2021 4:00 AM CDT 1 drop Given 02/17/2021 12:00 AM CDT 1 drop Given 02/16/2021 8:22 PM CDT 1 drop Given 02/16/2021 4:16 PM CDT 1 drop Given 02/16/2021 12:10 PM CDT 1 drop Given 02/16/2021 8:35 AM CDT 1 drop Given 02/16/2021 4:08 AM CDT 1 drop Given 02/16/2021 12:09 AM CDT 1 drop Given 02/15/2021 8:40 PM CDT 1 drop Given 02/15/2021 3:27 PM CDT 1 drop Given 02/15/2021 12:30 PM CDT 1 drop Given 02/15/2021 7:47 AM CDT 1 drop Given 02/15/2021 5:30 AM CDT 1 drop Given 02/15/2021 12:45 AM CDT 1 drop Given 02/14/2021 8:09 PM CDT 02/18/2021 10:04 AM CDT 300 mg 77 mL/hr iron sucrose (VENOFER) 300 mg in sodium Given - New chloride 0.9% (NS) IVPB Bag 300 mg, Intravenous, 115 mL, Administer over 90 Minutes, DAILY, 2 doses, First dose on Tue02/17/21 at 1015, Last dose on Tue02/18/21 at 0900, -STOP infusion immediately, and notify physician for a new onset of the following: pruritis, facial flushing, chills, dyspnea, chest pain, back pain, hypotension, hypertension, lightheadedness, malaise, weakness, nausea, vomiting and diarrhea . -STOP infusion immediately, administer reaction management medication, call rapid response/code as appropriate and notify physician for a new onset of the following: diaphoresis, nausea, vomiting, severe low back pain, wheezin g for 20 min, and decreased level of consciousness, staggering, ataxia, increases in respiratory rate, tremor and convulsions. 300 mg 77 mL/hr Given - New Bag 02/17/2021 12:08 PM CDT 02/14/2021 10:48 AM CDT 100 mL/hr lactated ringers infusion Given - New 1,000 mL, Intravenous, at 100 mL/hr, Bag CONTINUOUS, Starting on Tue02/13/21 at 2300, Until Tue02/14/21 at 1830 100 mL/hr Given - New Bag 02/14/2021 12:18 AM CDT 02/14/2021 11:08 AM CDT 20 mL/hr lactated ringers infusion Given - New 1,000 mL, Intravenous, at 20 mL/hr, Bag CONTINUOUS, Starting on Tue02/14/21 at 1100, Until 02/14/21 at 1830, Pre-Op 02/15/2021 6:26 AM CDT 500 mL 300 mL/hr lactated ringers infusion Given - New 1,000 mL, 500 mL, Intravenous, at 3,000 Bag mL/hr, BOLUS, 1 dose, On 02/15/21 at 0615 02/14/2021 10:45 AM CDT 1 g 25 mL/hr magnesium sulfate 1 g/D5W 100 mL IVPB Given - New 1 g, Intravenous, 100 mL, Administer Bag over 4 Hours, EVERY 4 HOURS, 1 dose, First dose on 02/14/21 at 1015, Each 1gm delivers 8.1 mEq Magnesium. 02/14/2021 8:10 PM CDT 1 g 25 mL/hr magnesium sulfate 1 g/D5W 100 mL IVPB Given - New 1 g, Intravenous, 100 mL, Administer Bag over 4 Hours, EVERY 4 HOURS, 1 dose, First dose on 02/14/21 at 2015, Each 1gm delivers 8.1 mEq Magnesium. 02/18/2021 9:24 PM CDT 3 mg melatonin (MELATIN) tablet 3 mg Given 3 mg, Oral, AT BEDTIME PRN, Starting on Tue02/18/21 at 2051, Until Tue02/20/21 at 0026, Insomnia 02/19/2021 2:16 PM CDT 750 mg methocarbamoL (ROBAXIN) tablet 750 mg Given 750 mg, Oral, THREE TIMES DAILY, First dose on 02/14/21 at 2100, Until Discontinued 750 mg Given 02/19/2021 8:48 AM CDT 750 mg Given 02/18/2021 9:18 PM CDT 750 mg Given 02/18/2021 4:15 PM CDT 750 mg Given 02/18/2021 8:03 AM CDT 750 mg Given 02/17/2021 8:55 PM CDT 750 mg Given 02/17/2021 2:49 PM CDT 750 mg Given 02/17/2021 9:33 AM CDT 750 mg Given 02/16/2021 8:16 PM CDT 750 mg Given 02/16/2021 2:19 PM CDT 750 mg Given 02/16/2021 8:31 AM CDT 750 mg Given 02/15/2021 8:40 PM CDT 750 mg Given 02/15/2021 3:27 PM CDT 750 mg Given 02/15/2021 8:18 AM CDT 750 mg Given 02/14/2021 9:27 PM CDT 02/19/2021 8:47 AM CDT 25 mg metoprolol tartrate tablet 25 mg Given 25 mg, Oral, TWICE DAILY, First dose on 02/14/21 at 1715, Until Discontinued , Hold for heart rate < 60 bpm or systoli c BP < 90 25 mg Given 02/18/2021 9:18 PM CDT 25 mg Given 02/18/2021 8:03 AM CDT 25 mg Given 02/17/2021 8:55 PM CDT 25 mg Given 02/17/2021 9:33 AM CDT 25 mg Given 02/16/2021 8:16 PM CDT 25 mg Given 02/16/2021 8:30 AM CDT 25 mg Given 02/15/2021 8:40 PM CDT 25 mg Given 02/15/2021 8:18 AM CDT 25 mg Given 02/14/2021 6:05 PM CDT 02/19/2021 8:47 AM CDT 10 mL milk of magnesia (CONC) oral suspension Given 10 mL 10 mL, Oral, DAILY, First dose on 02/17/21 at 1015, Until Discontinued, 10 mL CONC = 30 mL MOM Hold for loose stools 10 mL Given 02/18/2021 8:02 AM CDT 10 mL Given 02/17/2021 1:36 PM CDT 02/13/2021 11:15 PM CDT 4 mg ondansetron (ZOFRAN) injection 4-8 mg Given 4-8 mg, Intravenous, EVERY 6 HOURS PRN , Starting on Tue02/13/21 at 2249, Until Tue02/20/21 at 0026, Nausea/Vomiting Injectable 02/14/2021 3:22 PM CDT 5 mg oxyCODONE (ROXICODONE) tablet 5 mg Given 5 mg, Oral, ONCE, 1 dose, On Tue 1 at 1515 02/14/2021 4:39 PM CDT 10 mg oxyCODONE (ROXICODONE) tablet 5-15 mg Given 5-15 mg, Oral, EVERY 4 HOURS PRN, Starting on Tue02/14/21 at 0001, Until Tue02/16/21 at 0949, Pain PO 02/19/2021 8:48 AM CDT 5 mg oxyCODONE (ROXICODONE) tablet 5-15 mg Given 5-15 mg, Oral, EVERY 4 HOURS PRN, Starting on Tue02/16/21 at 1101, Until Tue02/20/21 at 0026, Pain PO 10 mg Given 02/18/2021 8:03 AM CDT 5 mg Given 02/17/2021 6:16 PM CDT 10 mg Given 02/17/2021 2:55 AM CDT 02/17/2021 9:33 AM CDT 17 g polyethylene glycol 3350 (MIRALAX) Given packet 17 g 17 g (1 packet), Oral, DAILY, First dos e on Tue02/14/21 at 0900, Until Discontinued, 8.5 GRAMS = 0.5 PACKET 17 GRAMS = 1 PACKET 34 GRAMS = 2 PACKETS 17 g Given 02/16/2021 8:31 AM CDT 02/18/2021 9:18 PM CDT 17 g polyethylene glycol 3350 (MIRALAX) Given packet 17 g 17 g (1 packet), Oral, TWICE DAILY, First dose (after last modification) on Tue02/17/21 at 2100, Until Discontinued , 8.5 GRAMS = 0.5 PACKET 17 GRAMS = 1 PACKET 34 GRAMS = 2 PACKETS 17 g Given 02/18/2021 8:02 AM CDT 17 g Given 02/17/2021 8:54 PM CDT 02/18/2021 9:00 AM CDT 500 mg potassium, sodium phosphates (PHOS-NaK) Given packet 500 mg 500 mg (2 packet), Oral, ONCE, 1 dose, On Tue02/18/21 at 0800, NEUTRAPHOS or Phos-NaK -- MIX PACKET IN 75ML WATER Each packet delivers 8mM Phosphorus, 7mEq Potassium, and 7 mEq Sodium 02/17/2021 5:21 PM CDT 20 mg rivaroxaban (XARELTO) tablet 20 mg Given 20 mg, Oral, DAILY WITH DINNER, First dose on Tue02/15/21 at 1845, Until Discontinued, Administer with food. NOTE: This is a HIGH ALERT Medication. 20 mg Given 02/16/2021 4:16 PM CDT 20 mg Given 02/15/2021 6:19 PM CDT 02/18/2021 11:34 PM CDT 1 mg rOPINIRole (REQUIP) tablet 1 mg Given 1 mg, Oral, DAILY - SEE EMAR, First dos e on Tue02/18/21 at 2130, Until Discontinued 02/14/2021 9:29 PM CDT 1.5 mg rOPINIRole (REQUIP) tablet 1.5 mg Given 1.5 mg, Oral, DAILY - SEE EMAR, First dose on Tue02/14/21 at 1815, Until Discontinued 02/14/2021 4:35 AM CDT 3 mg rOPINIRole (REQUIP) tablet 3 mg Given 3 mg, Oral, ONCE, 1 dose, On Tue 1 at 0530 02/19/2021 8:47 AM CDT 1 tablet senna/docusate (SENOKOT-S) tablet 1 Given tablet 1 tablet, Oral, TWICE DAILY, First dose on Tue02/13/21 at 2300, Until Discontinued, Hold for loose stools 1 tablet Given 02/18/2021 9:18 PM CDT 1 tablet Given 02/18/2021 8:03 AM CDT 1 tablet Given 02/17/2021 8:55 PM CDT 1 tablet Given 02/17/2021 9:33 AM CDT 1 tablet Given 02/16/2021 8:30 AM CDT 1 tablet Given 02/15/2021 8:40 PM CDT 1 tablet Given 02/15/2021 8:18 AM CDT 1 tablet Given 02/14/2021 9:26 PM CDT 1 tablet Given 02/14/2021 12:18 AM CDT 02/14/2021 9:38 PM CDT WATER FOR INJECTION, STERILE IJ SOLN Given (Cabinet Override) NOW, 1 dose, On 02/14/21 at 2130, Created by cabinet override, Created by cabinet override 02/15/2021 6:01 AM CDT 20 mL WATER FOR INJECTION, STERILE IJ SOLN Given (Cabinet Override) NOW, 1 dose, On 02/15/21 at 0600, Created by cabinet override, Created by cabinet override documented in this encounter Discontinued Medications Start Date End Date Medication Sig Discontinue Reason 02/18/2021 rivaroxaban (XARELTO) 20 Take 20 mg mg tablet by mouth daily. Take with food. documented as of this encounter Historical Medications * This list may reflect changes made after this encounter. Start Date End Date Medication Sig Dispensed Refills gentamicin 0.3 % Apply 1 drop 0 ophthalmic solution to both eyes every 4 hours. cholecalciferol (VITAMIN Take 1,000 0 D-3) 1,000 units tablet Units by mouth daily. calcium carbonate Chew 1 tablet 0 (CALCIUM 500) 500 mg by mouth calcium (1,250 mg) daily. chewable tablet metoprolol tartrate 25 mg Take 25 mg by 0 tablet mouth twice daily. potassium chloride SR Take 1 tablet 0 (K-DUR) 20 mEq tablet by mouth twice daily. Take with a meal and a full glass of water. rOPINIRole (REQUIP) 1 mg Take 1.5 mg 0 tablet by mouth at bedtime daily. Take one & one half tablets by mouth daily 02/18/2021 rivaroxaban (XARELTO) 20 Take 20 mg by 0 mg tablet mouth daily. Take with food. added in this encounter Active and Recently Administered Medications Times are shown in CDT. 02/18/2021 02/19/2021 Medication Order 02/17/2021 0334 (Med Not Given - Provider: Dunia Whitaker RN - Reason: Patient sleeping)0803 (Given - Provider: Jose Schafer RN)1614 (Given - Provider: Jose Schafer RN)2118 (Given - Provider: Karen Thorne RN) 0513 (Med Not Given - Provider: Karen mcgarry, HARVEY - Reason: Patient sleeping)0848 (Given - Provider: Jose Schafer RN)1416 (Given - Provider: Jose Schafer RN) acetaminophen (TYLENOL) tablet 650 mg 0255 (Given - 650 mg, Oral, EVERY 6 HOURS, First dose Provider: Jae abdullahi (after last modification) on Tue02/14/21 Pamela RN)09 33 (Given at 2100, Until Discontinued, TOTAL - Provider: Vero ACETAMINOPHEN DOSE NOT TO EXCEED 4GM MELANY Schumacher RN)1449 (Given - Provider: Vero Schumacher RN)2055 (Given - Provider: Dunia Carrillo RN) 1728 (Given - Provider: Jose Schafer RN ) 0847 (Given - Provider: Jose Schafer RN ) enoxaparin (LOVENOX) syringe 100 mg 100 mg (rounded from 105 mg = 1 mg/kg 105 kg), Subcutaneous, TWICE DAILY, First dose on Tue02/18/21 at 1730, Unti l Discontinued, For patients undergoing surgery: Consult physician in advance - - enoxaparin is an anticoagulant and may need to be held for 12hr prior to surgery or invasive procedures. NOTE: This is a HIGH ALERT Medication. 0107 (Given - Provider: Dunia silveira RN)0444 (Given - Provider: Dunia Carrillo RN)0900 (Given - Provider: Jose Schafer RN)1159 (Given - Provider: Jose Schafer RN)1728 (Given - Provider: Jose Schafer RN)211 (Med Not Given - Provider: Karen Thorne RN - Reason: Patient Refused)2336 (Given - Provider: Karen Thorne RN) 0513 (Med Not Given - Provider: Karen mcgarry RN - Reason: Patient sleeping)0848 (Given - Provider: Jose Schafer RN)1200 (Given - Provider: Jose Schafer RN)1600 (Due)2000 (Due) gentamicin 0.3 % ophthalmic solution 1 0000 (Given - drop Provider: Tyshawn 1 drop, Both Eyes, EVERY 4 HOURS, First Pamela RN)04 00 (Given dose on 02/14/21 at 2000, Until - Provider: Calixto Santiago RN)0932 (Given - Provider: Vero Schumacher, HARVEY)1209 (Given - Provider: Vero Shcumacher, HARVEY)1721 (Given - Provider: Vero Schumacher RN)2055 (Given - Provider: Dunia Carrillo RN) 1004 (Given - New Bag - Provider: Jose chacko RN) iron sucrose (VENOFER) 300 mg in sodium 1208 (Given - New chloride 0.9% (NS) IVPB (COMPLETED) Bag - Provider: Vero 300 mg, Intravenous, 115 mL, Administer Catherine wallace RN) over 90 Minutes, DAILY, 2 doses, First dose on Tue02/17/21 at 1015, Last dose on Tue02/18/21 at 0900, -STOP infusion immediately, and notify physician for a new onset of the following: pruritis, facial flushing, chills, dyspnea, chest pain, back pain, hypotension, hypertension, lightheadedness, malaise, weakness, nausea, vomiting and diarrhea . -STOP infusion immediately, administer reaction management medication, call rapid response/code as appropriate and notify physician for a new onset of the following: diaphoresis, nausea, vomiting, severe low back pain, wheezin g for 20 min, and decreased level of consciousness, staggering, ataxia, increases in respiratory rate, tremor and convulsions. 0803 (Given - Provider: Jose Schafer RN )1615 (Given - Provider: Jose Schafer RN)2118 (Given - Provider: Karen Thorne, HARVEY) 0848 (Given - Provider: Jose Schafer RN )1416 (Given - Provider: Jose Schafer RN) methocarbamoL (ROBAXIN) tablet 750 mg 0933 (Given - 750 mg, Oral, THREE TIMES DAILY, First Provider: Ayleen ríos dose on 02/14/21 at 2100, Until Roxanne Schumacher RN)1449 (Given - Provider: Vero Schumacher RN)2054 (Given - Provider: Dunia Carrillo, HARVEY) 08 (Given - Provider: Jose Schafer RN )2117 (Given - Provider: Karen Thorne RN) 0847 (Given - Provider: Jose Schafer RN ) metoprolol tartrate tablet 25 mg 0933 (Given - 25 mg, Oral, TWICE DAILY, First dose on Provider: Shaq ortiz 02/14/21 at 1715, Until Discontinued, Matt merrill, Hold for heart rate < 60 bpm or systolic RN)2054 (Gi yissel - BP < 90 Provider: Dunia Carrillo, HARVEY) 08 (Given - Provider: Jose Schafer RN ) 0847 (Given - Provider: Jose Schafer RN ) milk of magnesia (CONC) oral suspension 1336 (Given - 10 mL Provider: Vero 10 mL, Oral, DAILY, First dose on Tue HARVEY Schumacher) 02/17/21 at 1015, Until Discontinued, 10 mL CONC = 30 mL MOM Hold for loose stools polyethylene glycol 3350 (MIRALAX) 0933 (Given - packet 17 g (CANCELED) Provider: Vero 17 g (1 packet), Oral, DAILY, First dose Matt merrill RN) on Tue02/14/21 at 0900, Until Discontinued, 8.5 GRAMS = 0.5 PACKET 17 GRAMS = 1 PACKET 34 GRAMS = 2 PACKETS 801 (Given - Provider: Jose Schafer RN )2117 (Given - Provider: Karen Thorne RN) 0941 (Med Not Given - Provider: Jose pablo RN - Reason: Patient Refused) polyethylene glycol 3350 (MIRALAX) 2053 (Given - packet 17 g Provider: Dunia 17 g (1 packet), Oral, TWICE DAILY, HARVEY Carrillo) First dose (after last modification) on Tue02/17/21 at 2100, Until Discontinued , 8.5 GRAMS = 0.5 PACKET 17 GRAMS = 1 PACKET 34 GRAMS = 2 PACKETS 0900 (Given - Provider: Jose Schafer RN ) potassium, sodium phosphates (PHOS-NaK) packet 500 mg (COMPLETED) 500 mg (2 packet), Oral, ONCE, 1 dose, On Tue02/18/21 at 0800, NEUTRAPHOS or Phos-NaK -- MIX PACKET IN 75ML WATER Each packet delivers 8mM Phosphorus, 7mEq Potassium, and 7 mEq Sodium rivaroxaban (XARELTO) tablet 20 mg 1721 (Given - (CANCELED) Provider: Vero 20 mg, Oral, DAILY WITH DINNER, First HARVEY Schumacher) dose on Tue02/15/21 at 1845, Until Discontinued, Administer with food. NOTE: This is a HIGH ALERT Medication. 2334 (Given - Provider: Karen Thorne, HARVEY ) rOPINIRole (REQUIP) tablet 1 mg 1 mg, Oral, DAILY - SEE EMAR, First dos e on Tue02/18/21 at 2130, Until Discontinued 08 (Given - Provider: Jose Schafer, HARVEY )2117 (Given - Provider: Karen Thorne, HARVEY) 0847 (Given - Provider: Jose Schafer RN ) senna/docusate (SENOKOT-S) tablet 1 0933 (Given - tablet Provider: Vero 1 tablet, Oral, TWICE DAILY, First dose Catherine wallace, on Tue02/13/21 at 2300, Until RN)2054 (Given - Discontinued, Hold for loose stools Provider: Dunia Carrillo RN) 02/18/2021 02/19/2021 Medication Order 02/17/2021 bisacodyL (DULCOLAX) rectal suppository 10 mg 10 mg, Rectal, DAILY PRN, Starting on Tue02/17/21 at 1427, Until Tue02/20/21 at 0026, Constipation FL, Hold for loos e stools diphenhydrAMINE (BENADRYL) injection 25 mg 25 mg, Intravenous, EVERY 4 HOURS PRN, Starting on Tue02/17/21 at 0904, Until Tue02/20/21 at 0026, Other..., IV iron infusion-related urticaria, If symptoms are rapidly progressing or continue after diphenhydramine, give epinephrine . EPINEPHrine PF (ADRENALIN) injection 0. 3 mg 0.3 mg, Intramuscular, EVERY 5 MIN PRN , Starting on Tue02/17/21 at 0904, Until Tue02/20/21 at 0026, Other..., iron infusion reaction management or symptom s of anaphylaxis, If symptoms are rapidly progressing or continue after diphenhydramine, or patient has symptom s of anaphylaxis, give epinephrine. Max 4 doses. NOTE: This is a HIGH ALERT Medication. 2123 (Given - Provider: Karen Thorne RN ) melatonin (MELATIN) tablet 3 mg 3 mg, Oral, AT BEDTIME PRN, Starting on Tue02/18/21 at 2051, Until Tue02/20/21 at 0026, Insomnia ondansetron (ZOFRAN) injection 4-8 mg 4-8 mg, Intravenous, EVERY 6 HOURS PRN , Starting on Tue02/13/21 at 2249, Until Tue02/20/21 at 0026, Nausea/Vomiting Injectable 0803 (Given - Provider: Jose Schafer RN ) 0848 (Given - Provider: Jose Schafer RN ) oxyCODONE (ROXICODONE) tablet 5-15 mg 0255 (Given - 5-15 mg, Oral, EVERY 4 HOURS PRN, Provider: Tyshawn Starting on Tue02/16/21 at 1101, Until HARVEY Santiago)1815 (Given Tue02/20/21 at 0026, Pain PO - Provider: Vero Schumacher RN) documented in this encounter Orders First Ordered Date Medications Ordered That Might Not Have Count Last Ordered Date Been Administered bisacodyL (DULCOLAX) rectal suppository 1 02/17/2021 10 mg 02/14/2021 diphenhydrAMINE (BENADRYL) injection 25 2 02/17/2021 mg EPINEPHrine PF (ADRENALIN) injection 0.3 1 02/17/2021 mg traMADoL (ULTRAM) tablet 50-100 mg 1 BACITRACIN ZINC 500 UNIT/GRAM TP OINT 1 02/15/2021 (Cabinet Override) WATER FOR INJECTION, STERILE IJ SOLN 1 0 02/15/2021 (Cabinet Override) fentaNYL citrate PF (SUBLIMAZE) 1 2020 injection 25 mcg fentaNYL citrate PF (SUBLIMAZE) 2 2020 injection 50 mcg lactated ringers infusion 1 02/14/2021 magnesium sulfate 1 g/D5W 100 mL IVPB 1 02/14/2021 metoclopramide (REGLAN) injection 10 mg 1 02/14/2021 promethazine (PHENERGAN) injection 6.25 1 02/14/2021 mg First Ordered Date Diet Count Last Ordered Date DISCHARGE DIET REGULAR 1 02/18/2021 First Ordered Date Nursing Count Last Ordered Date BATHING INSTRUCTIONS 1 02/18/2021 DISCHARGE ACTIVITY DRIVING 1 02/18/2021 DISCHARGE ACTIVITY NORMAL 1 02/18/2021 DISCHARGE ACTIVITY OTHER 1 02/18/2021 DISCHARGE ACTIVITY WT BEARING 1 02/19/20 21 DISCHARGE CONTACT 1 02/18/2021 DISCHARGE EDUCATION 2 02/18/2021 DISCHARGE RETURN APPOINTMENT 2 DISCHARGE SIGNS/SYMPTOMS 1 02/18/2021 NURSE COMMUNICATION 1 02/13/2021 First Ordered Date Consult Count Last Ordered Date CONSULT ORTHOPEDIC SURGERY PHYSICIAN 1 0 02/14/2021 CONSULT INTERNAL MEDICINE PHYSICIAN 1 First Ordered Date OT Count Last Ordered Date OT EVAL & TX FOR OTHER 1 02/18/2021 OT CONSULT OCCUPATIONAL THERAPY 1 2020 First Ordered Date PT Count Last Ordered Date PT EVAL & TX FOR OTHER 1 02/18/2021 PT CONSULT PHYSICAL THERAPY 1 02/13/2021 First Ordered Date LITIGATOR Count Last Ordered Date LITIGATOR CONSULT SPEECH-LANGUAGE EVAL & TX 1 02/15/2021 First Ordered Date Admission Count Last Ordered Date ADMIT TO INPATIENT (NO BED REQUEST) 1 First Ordered Date Discharge Count Last Ordered Date DISCHARGE PATIENT NOW 1 02/19/2021 [facility] 1 1 First Ordered Date Equipment Count Last Ordered Date 02/13/2021 PUMP IV CONTROL UNIT W/MODULES 2 021 COMPRESSION DEVICE, LEG 1 02/16/2021 First Ordered Date Vital Signs Count Last Ordered Date VITAL SIGNS 1 02/17/2021 First Ordered Date Activity Count Last Ordered Date MOBILITY 1 02/14/2021 First Ordered Date Discharge Contingent Count Last Ordered Date DISCHARGE PATIENT CONTINGENT 1 1 First Ordered Date SPECIALITY EQUIPMENT Count Last Ordered Date COMMODE STANDARD 300LBS MAX 2 02/17/2021 First Ordered Date Intake & Output Count Last Ordered Date INTAKE AND OUTPUT 1 02/13/[address] & Maintain Count Last Ordered Date PLACE AND MAINTAIN SCD 1 02/13/2021 First Ordered Date Case Request Count Last Ordered Date CASE REQUEST 1 02/14/2021 documented in this encounter Additional Health Concerns Assessment Noted Time A fall risk assessment has been completed for the pat ient 02/19/2021 8:48 AM CDT documented as of this encounter
--- OUTSIDE RECORDS SUMMARY | 2021-03-11 17:49 | XMS REPORT | Encounter Summary ---
Author Author [facility] Organization [facility] Address Unknown Phone Unavailable Care Team Providers Care Core Measures Abstractor Name Role Phone No Pcp, Na PCP Unavailable Geronimo Boland MD Unavailable Kevin Holliday MD Unavailable Juan Messer MD Unavailable Chilango Haji MD Unavailable Reason for Visit * Auth/Cert Referred By Contact Referred To Contact Status Reason Specialty Diagnoses / Procedures Diagnoses Trauma Right Hip Fracture Encounter Details Care Team Description Date Type Department Alexandr Zapata MD [address] [place] [facility] [address] [place] [id number] TREATMENT INTERTROCHANTERIC/ PERITROCHAN TERIC/ SUBTROCHANTERIC FEMORAL FRACTURE WITH INTERMEDULLARY IMPLANT WITH/ WITHOUT INTERLOCKING SCREWS/ CERCLAGE 02/14/2021 Surgery Operating Room: [facility], [address] [place] [address] Surgery Details Trauma Case? Date/Time Status Location OR Service Patient Class Case Class Case Type 02/14/21 Posted 2 OR OR 03 Orthopedic Inpatient Electi ve - 10:45 AM s Treating conditions that are not life or limb threatenin g Panel 1 Procedure LRB Anes Op Region Wound Class Com ments TREATMENT Right Defer to Hip Clean INTERTROCHANTERIC/ Anesthesia PERITROCHANTERIC/ SUBTROCHANTERIC FEMORAL FRACTURE WITH INTERMEDULLARY IMPLANT WITH/ WITHOUT INTERLOCKING SCREWS/ CERCLAGE Panel Surgeon Surgeon Role Service 1 Ryan Farrell MD Resident - Assisting Orthopedics 1 Alexandr Zapata MD Primary Orthopedics Social History Date Tobacco Use Types Packs/Day [...] Signs Reading Time Taken Comments Vital Sign 125/87 02/14/2021 12:00 PM CDT Blood Pressure 90 02/14/2021 11:30 AM CDT Pulse 36.7 C (98 F) 02/14/2021 11:30 AM CDT Temperature - - Respiratory Rate 98% 02/14/2021 11:30 AM CDT Oxygen Saturation - - Inhaled Oxygen [...] as of this encounter Discharge Summaries * Roseann Morrow - 02/19/2021 8:11 PM CDT Physician Discharge [...] pain. She w as taken to [facility] where she was found to have a [...] mprovement in symptoms during CT. Neurology recommended [employer] NURSE evaluation which she passed and was given [...] PHYSICIAN CONSULT ORTHOPEDIC SURGERY PHYSICIAN Patient Disposition: Retirement Facility Patient instructions/medications: Regular Diet You have [...] or concerns regarding your hospital stay, call [phone]. Discharging attending physician: VENTURA YAÑEZ [[id number]] Activity as Tolerated It is important to [...] quest ions or concerns. Provider TRAUMA, SURGERY [[id number]] Return Appointment Please follow up with Ortho in 2 weeks -Leave dressings in place until follow up appointment. If any new drainage seen or concerns for infection, please contact Dr. Barlow's office @ [phone]. -Follow up appointment needed with the orthopedics clinic with Dr. Barlow or [facility] ORI Willis, please call [phone] or [phone] to schedule/confirm this appointment. Provider ALEXANDR ZAPATA [[id number]] Opioid (Narcotic) Safety Information OPIOID (NARCOTIC) PAIN [...] is not lasting long enough, call yo doctor. *Do not break or crush your [...] limits refills to one maximum. Naloxone Nasal [place] Instructions Naloxone nasal spray Brand Name: Jessica What is this medicine? NALOXONE (nal OX [...] of a narcotic overdose. Talk to your side guider regarding the use of this medicine in children. While this drug may be prescribed for chi ldren as young as newborns for selected conditions, precautions do apply. What side effects may I notice from receiving this medicine? Side effects that you should report to your doctor or health intensive care medicine specialist a s soon as possible: allergic reactions like skin rash, itching or hives, swelling of the face, li ps, or tongue breathing problems fast, irregular heartbeat high blood pressure pain that was controlled by narcotic pain medicine seizures Side effects that usually do not require medical attention (report to your docto r or health intensive care medicine specialist if they continue or are bothersome): anxious [...] phone number of your doctor or health intensive care medicine specialist and loc al hospital ready. You may need to have additional doses of this medicine. Each nasal spray contains a single dose. Some emergencies may require additional dose s. After use, bring the treated person to the nearest hospital or call 911. Make betts re the treating health intensive care medicine specialist knows that the person has received an [...] Complete if patient is going to a Retirement Facility I certify that the patient requires skilled care Yes The patient's stay is expected to be less than 30 days Yes I will be in charge of patient in fdc No Current Discharge Medication List START taking [...] Disposition Code Departure Means Destination Disposition Wheelchair Retirement Facility documented in this encounter Progress Notes [...] Full code Internal medicine consult pager # [phone] Subjective West Cerna is a 85 y.o. [...] 24 Tiffany r Range BP: 129/56 (02/19 133) Temp: 36.6 C (97.8 F) (02/19 1330) Pulse: 88 (02/19 1330) Respirations: 18 PER MINUTE (02/19 1330) SpO2: 98 % (02/19 133) BP: (129-155)/(56-89) Temp: [36.5 C (97.7 F)-37.1 [...] pertinent radiology. Kwesi Huynh MD Pager: # [phone] * Guerita Aguirre RN - 02/19/2021 7:35 [...] hip pain. She was taken to [facility] where she was found to have a [...] improvement in symptoms during CT. Neurology recommended [employer] NURSE evaluation whic h she passed and was [...] q4h prn Sleep Disturbance --Melatonin 3mg QHS --TOBACCO CONDITIONER Requip CV HDS. See VS summary below Afib, HTN -- rate controlled with TOBACCO CONDITIONER metoprolol -- resume Xarelto this PM Pulm [...] Intake/Output Summary (Last 24 hours) at 02/19/2021 0678 Last data filed at 02/18/2021 1900 Gross [...] 02/19/21 0000 Number of days: 5 Azra Lawson APRN-VISUAL JOURNALIST 0047 Trauma Floor Pager [phone] * Kwesi Huynh MD - 02/18/2021 5:35 [...] female. [facility], she appears mildly confused and sedated however able to respond appropriately , easy to redirect, she falls asleep easily during the conversation, she reports her pain is reasonably controlled, patient is aware that social media marketer is worki ng with her son deciding facility near [facility] Medications Scheduled Meds:acetaminophen (TYLENOL) tablet 650 mg, [...] (Last 24 hours) Glucose: (!) 114 (02/18/21 5869) Radiology and other Diagnostics Review: No pertinent radiology. Kwesi Huynh MD Pager: # [phone] * Komal Ashford - 02/18/2021 10:04 AM [...] infection, please contact Dr. Barlow's office @ [phone]. -Weight Bearing as tolerated to right lower extremity. -Do not get incisions wet. Keep dressings dry. Sponge bathe until follow up appo intment. -Follow up appointment needed with the orthopedics clinic with Dr. Barlow or me ariadna Willis, please call [phone] or [phone] to schedule/confirm this appointment. -Lovenox recommended x 3 weeks until follow appointment.Ok with therapeutic dosi ng. Monitor CBC. Will need transition back to Xarelto after cleared by orthopedi cs outpatient in 2-3 weeks at initial post-op appt. Should you have a question or concern regarding your orthopedic care or injuries please call our nurse's line at [phone]. Our clinic is located on the 2nd floor of the [facility] [place] on [facility], across from the [facility] arage. The clinic address is [address], [place] [address] Nora Hartman APRN Nurse Practitioner, Orthopedic Surgery Pager [phone] ([facility], 6-7) * Azra Lawson APRN-NP - 02/18/2021 7:00 [...] hip pain. She was taken to [facility] where she was found to have a [...] improvement in symptoms during CT. Neurology recommended [employer] N[employer]SE evaluation whic h she passed and was [...] below Afib, HTN -- rate controlled with TOBACCO CONDITIONER metoprolol -- resume Xarelto this PM Pulm [...] needs inpatient placement- awaiting insur ance auth SW/CM following for discharge planning needs. Patient [...] Yes 02/18/21 0441 Wound Dressing Status Intact 02/17/212041 Wound Dressing and / or Treatment Gauze;Transparent (i.e. Tegaderm) 02/17/21 2 Wound Drainage Description Serosanguineous 02/17/212041 Wound Drainage Amount Moderate 02/17/212041 Wound Base Assessment Dressing intact, base not assessed 02/17/212041 Surrounding Skin Assessment Dry;Intact 02/17/212041 Wound Site Closure Wound Adhesive Bandage 02/17/212041 Number of days: 4 Azra Lawson APRN-VISUAL JOURNALIST 0047 Trauma Floor Pager [phone] * Kwesi Huynh MD - 02/17/2021 2:26 [...] in acute rehab in the vicinity of [facility] , social media marketer is assisting the patient with placement Patient [...] pertinent radiology. Kwesi Huynh MD Pager: # [phone] * Izabella Mcneil, OT - 02/17/2021 10:30 [...] asked about these. Prior Function Level Of Neches: Independent with ADLs and functional transfers Lives With: Spouse Vocational: Retired Other Function Comments: Lives with who is bed-bound on hospice with car egivers to provide his assistance. Pt reports being independent with ADLs, samuelev er therapist is unsure how safe pt [...] extensive caregiver support [place]: [place] [id number] Date: 02/17/2021 * Davidson Danna, PT - 02/17/2021 8:48 AM CDT PHYSICAL [...] she does not have any braces. Per egamcrqm-gv-adg pt has bilat eral ankle braces but [...] hip pain. She was taken to [facility] where she was found to have a [...] improvement in symptoms during CT. Neurology recommended [employer] N[employer]SE evaluation whic h she passed and was [...] below Afib, HTN -- rate controlled with TOBACCO CONDITIONER metoprolol -- resume Xarelto this PM Pulm [...] Number of days: 3 Gaston West PA-C 4427 Trauma Floor Pager [phone] * Kwesi Huynh MD - 02/16/2021 3:49 [...] Vital Signs: 24 Tiffany r Range BP: 141/70 (02/17 824) Temp: [...] (Last 24 hours) Glucose: (!) 109 (02/16/21 0418) Radiology and other Diagnostics Review: EKG Reviewed Kwesi Huynh MD Pager: # [phone] * Mikala Moise OT - 02/16/2021 3:03 [...] follow and provide intervention as indicated. Therapist: Mikala Moise OTR/Areli Date: 02/16/2021 * Danna Davidson PT - [...] she does not have any braces. Per ixkzidzm-ny-rgk pt has bilat eral ankle braces but [...] R hip pain. She was taken to [facility] where she was found to have a [...] improvement in symptoms during CT. Neurology recommended [employer] NURSE evaluation whic h she passed and was [...] below Afib, HTN -- rate controlled with TOBACCO CONDITIONER metoprolol -- resume Xarelto this PM Pulm [...] / or Treatment Gauze;Transparent (i.e. Tegaderm) 02/15/21 Wound Drainage Amount None 02/15/212126 Wound Base Assessment Dressing intact, base not assessed 02/15/212126 Surrounding Skin Assessment Dry;Intact 02/15/212126 Number of days: 2 Gaston West PA-C 4920 Trauma Floor Pager [phone] * Federica June, MIGUE-VISUAL JOURNALIST - 02/15/2021 5:17 PM CDT Trauma Progress [...] R hip pain. She was taken to [facility] where she was found to have a [...] improvement in symptoms during CT. Neurology recommended [employer] N[employer]SE evaluation whic h she passed and was [...] below Afib, HTN -- rate controlled with TOBACCO CONDITIONER metoprolol -- resume Xarelto this PM Pulm [...] 080 0 Wound Drainage Amount None 02/15/21 08 Wound Base Assessment Dressing intact, base not assessed 02/15/21 08 Surrounding Skin Assessment Dry;Intact 02/15/21 0800 Number of days: 1 Federica June APRN-VISUAL JOURNALIST 5576 Trauma Floor Pager [phone] Associated attestation - Darshan Valdez MD - [...] standing with proximal femur fx s/p CMN 8/ 14. Precautions: Standard;Falls R LE Precautions: RLE WBAT: [...] asked about these. Prior Function Level Of N[place]: Independent with ADLs and functional transfers Lives [...] DC home with extensive caregiver support Therapist: An Flores OTR/Areli [id number] Date: 02/15/2021 * Tamar Slaughter, PT - [...] Cognitive Status: Alert;Oriented;Cooperative Persons Present: Occupational Therapist (daugher in law) Pain: Patient complains of pain [...] she does not have any braces. Per azlyxdeq-oi-hml pt has bilat eral ankle braces but [...] fatigued and not safe to transfer [facility] Education Persons Educated: Patient/Family Patient Barriers [...] Slaughter, PT Date 02/15/2021 * Courtney Mason MA,CCC-[employer] S[employer] NURSE - 02/15/2021 9:15 AM CDT SPEECH-LANGUAGE PATHOLOGY [...] Patient functioning at baseline - No further [employer] NURSE therapy indicated at this time Prognosis: Good NOMS Dysphagia Ratin-Normal -Ability to eat indep not limited by swallow fun ction. Swallow safe/efficient for all consistencies. Compensatory strategies eff ectively used when needed. Speech Discharge Recommendations Recommendation: No further ST recommended at this time Therapist:Courtney Mason MA, L/ARCHIE-[employer] NURSE Voalte: [phone] Weekend pager: [phone] Date:02/15/2021 * Johnathan Zuleta DO - 02/15/2021 [...] #Paroxsymal Atrial Fibrillation on AC #HTN - [id number]:4 for Age (2), Sex, HTN - Rate Controlled with Metoprolol Tartrate 25 BID and is on Rivaroxaban 20 mg da radha for AC -Appears to have gone into RVR in the conche loader and unloader with associated hypertension #Restless Leg Syndrome - [...] safe from a surgery standpoint > Continue TOBACCO CONDITIONER metoprolol tartrate 25 mg twice daily. We will keep a close eye on blood pressures and heart rates throughout the day to titrate metoprolol, or add antihypertensives as needed > Will discontinue patient's TOBACCO CONDITIONER ropinirole for her restless leg to ensure [...] continue to follow along. Johnathan Zuleta DO, RANDALL Chief Resident, Internal Medicine Pager [phone] or Available on Voalte Total time (reviewing and writing notes, interdisciplinary rounds with the nurse , outpatient case manager and the social media marketer, discussion with leasing sales consultant services) spent greater than 25 minutes [...] 24 Tiffany r Range BP: 139/70 (02/15 0756) Temp: 36.2 C (97.2 F) (02/15 075) Pulse: 91 (02/15 0756) Respirations: 18 PER MINUTE (02/15 0756) SpO2: 100 % (02/15 0756) SpO2 Pulse: 98 (02/14 1500) BP: (108-175)/(51-121) [...] Testing (Last 24 hours) Glucose: (!) 140 (02/15/21 0421) POC Glucose (Download): (!) 159 (02/15/21 3563) Radiology and other Diagnostics Review: Pertinent radiology [...] patient f/u with Dr. Zapata from Orthopedic [facility] in 2 weeks by calling [phone] During normal business hours, please contact Saranya Willis (#[phone] on [facility] Hartman (#[phone]), or Dimitri Orona. At all other times, contact the orthopedic [facility] resident communications writer for any questions or concerns. Tim Thomson MD [id number] S: Stroke activated this AM, no intervention performed. NPO for [employer] S[employer] NURSE eval. Patien t lethargic this morning, minimally [...] Strickland RN - 02/15/2021 4:50 AM CDT 0415 This RN went to get pt's am [...] pt. [address] Pt [address] down to [address]. 0445 Trauma team updated on pt's change in [...] Ortho Update Note: Post-Op Recommendations A/P West Cerna is a 85 y.o. female [...] patient f/u with Dr. Zapata from Orthopedic [facility] in 2 weeks by calling [phone] Ryan Farrell MD Pager [phone] * Javier Zacarias, REAL ESTATE ACCOUNT EXECUTIVE-VISUAL JOURNALIST - 02/14/2021 9:08 AM CDT Trauma Progress [...] pain and could not get up. The healthcare advisory services manager for her was in the home and called 911. She presented to the transferring facility and under went a CXR, pelvis, right hip, and right femur which showed right subtroch anteric hip fracture and she was transferred to [facility] for further management. She was evaluated by the orthopedics team and was taken to the OR on 02/14 for cepha lomedullary nailing of the right proximal femur fracture. Principal Problem: Trauma Active Problems: Fall Hip fracture (HCC) Class 2 severe obesity with serious comorbidity in adult (HCC) Atrial fibrillation, chronic ([facility]) Chronic anticoagulation Essential hypertension Restless leg syndrome Impaired mobility and activities of daily living Acute traumatic pain Hypomagnesemia Frailty syndrome in geriatric patient Gait instability Neuro Acute pain due to trauma --Tylenol 650mg Q6 hour --Oxycodone 5-15mg Q4 hour PRN --Robaxin 750mg po TID --Fentanyl 25-50mcg IV q 1 hour PRN severe pain not relieved by oxycodone CV Monitor HR/BP. HDS TOBACCO CONDITIONER Metoprolol Pulm Pulmonary toilet and hygiene, IS [...] Net 535 ml Date of Last Stool: TOBACCO CONDITIONER Medications: Scheduled Meds:acetaminophen (TYLENOL) tablet 650 mg, [...] Dry;Intact 02/14/21 1452 Number of days: 0 Javier Zacarias APRN-VISUAL JOURNALIST 5233 Trauma Service Pager: [phone] * Estella Graves, PT - 02/14/2021 7:15 AM CDT PHYSICAL [...] pt room for tonight, pt's son will order picker tomorrow morning. Cherry placed in security bag and sealed, Carolyn Bansal RN verified with this RN. * Flaco Sifeuntes RN - 02/13/2021 8:39 PM CDT Report taken from HARVEY Tai at [facility]. Pt still at [facility] at time of r eport. ETA [phone]. documented in this encounter H&P Notes * Azra Lawson APRN-JUSTIN - 02/18/2021 7:01 AM CDT Tertiary Trauma [...] pain. She w as taken to [facility] where she was found to have a right subtrochanteric femu r fracture. She was transferred for higher level of care. She was admitted to [facility] trauma floor with Ortho and IM consults. She went to the OR 02/14 for CMN of he r R hip. Overnight 02/14-02/15 she was found to have altered mental status with fa ilure to follow commands or answer questions. She was stroke activated but had i mprovement in symptoms during CT. Neurology recommended [employer] NURSE evaluation which she passed and was given a regular diet. She has returned to normal mental status t his morning. PMHx: No past medical history on file. PSHx: Surgical History: Procedure Laterality Date TREATMENT INTERTROCHANTERIC/ PERITROCHANTERIC/ SUBTROCHANTERIC FEMORAL FRACT URE WITH INTERMEDULLARY IMPLANT WITH/ WITHOUT INTERLOCKING SCREWS/ CERCLAGE [facility] t 02/14/2021 Performed by Alexandr Zapata MD at [facility] OR Social Hx: Social History [...] injuries or concerns noted. Azra Lawson APRN, MANAGER CHANNEL-C Pager [phone] Trauma Pager [phone] documented in this encounter Consult Notes * Johnathan Zuleta, - 02/14/2021 1:24 PM CDT Associated Order(s): [...] #Paroxsymal Atrial Fibrillation on AC #HTN - [id number]:4 for Age (2), Sex, HTN - Rate [...] safe from a surgery standpoint > Resume TOBACCO CONDITIONER metoprolol tartrate 25 mg twice daily (ordered) > Resume patient's TOBACCO CONDITIONER ropinirole for her restless leg (ordered) > [...] DO, MA Chief Resident, Internal Medicine Pager [phone] or Available on Voalte Total time (reviewing and writing notes, interdisciplinary rounds with the nurse , outpatient case manager and the social media marketer, discussion with leasing sales consultant services) spent >80 minutes of which [...] Social Gatherings with Friends and Family: Attends Anabaptism Services: Active Member of Clubs or Organizations: Attends Club or Organization Meetings: Marital Status: Intimate Partner Violence: Fear of Current or Ex-Partner: Emotionally Abused: Physically Abused: Sexually Abused: No family history on file. Allergies: Codeine and Lisinopril Scheduled Meds:[MAR Hold] enoxaparin (LOVENOX) syringe 30 mg, 30 mg, Subcutaneou s, BID magnesium sulfate 1 g/D5W 100 mL IVPB, 1 g, Intravenous, Q4H* Followed by [MAR Hold] magnesium sulfate 1 g/D5W 100 mL IVPB, 1 g, Intravenous, Q4H* [MAR Hold] polyethylene glycol 3350 (MIRALAX) packet 17 g, 1 packet, Oral, QDAY [MAR Hold] senna/docusate (SENOKOT-S) tablet 1 tablet, 1 [...] medical histo ry of A. fib on [facility] who presented as a trauma transfer after [...] business hours, please contact Saranya Willis (P[facility] [phone] [facility] , Flaquita Warren (#[phone]), Nora Hartman (#[phone]) or Cb Orona. At all othe r times, contact the orthopedic surgery resident communications writer for any questions or co ncerns. History [...] Radiology: No results found. Cb Orona MD 3049 documented in this encounter Miscellaneous Notes * Case Mgmt DC Plan - Steffany Parnell - 02/19/2021 2:33 PM CDT JEWELRY DESIGNER Note: Faxed dc orders.to [facility] at [place] per the request from STEVEN Negron . Steffany Parnell Farm Appraiser For additional assistance please contact [facility] *[phone] * Case Mgmt DC Plan - Sahra Murdock - 02/19/2021 2:06 PM CDT Case Management Progress Note NAME:West Cerna : 1935 AGE: 85 y.o. ADMISSION DATE: 02/13/2021 DAYS ADMITTED: LOS: 6 days Todays Date: 02/19/2021 Plan Dc to [facility] at 4pm via facility transport. Interventions Support Info or Referral Discharge Planning SW reached out to [facility], they are able to transfer pt today [...] Selected Services Address Phone Fax Patient Preferred [facility] [address] [facility] [address] [phone] * Case Mgmt DC Plan - Steffany Parnell - 02/18/2021 10:01 AM CDT JEWELRY DESIGNER Note: Printed and placed transfer packet in the pt's wall unit per request from DASH Negron. Steffany Parnell Farm Appraiser For additional assistance please contact [facility] *[phone] * Case Mgmt DC Plan - Sahra Murdock - 02/18/2021 8:32 AM CDT Case Management Progress Note NAME:West Cerna : 1935 AGE: 85 y.o. ADMISSION DATE: 02/13/2021 DAYS ADMITTED: LOS: 5 days Todays Date: 02/18/2021 Plan Dc to [facility] pending auth Interventions Support Info or Referral Discharge Planning SW updated by pt's son, they would like the facilities in the following orders : [facility] - unable to accept [facility] - able to accept [place] [facility] - able to accept SW notified pt's son of the above and in agreement with transfer to [place] [employer] [facility]. SW updated [facility] who is working on insurance auth. SW tasked JEWELRY DESIGNER to deliver pt's transfer packet. SW tasked JEWELRY DESIGNER to fax dc orders. Medication Needs Financial Legal Other Disposition Expected Discharge Date 02/18/2021 Transportation Will the Patient Use Family Transport?: Yes Next Level of Care (Acute Psych discharges only) Discharge Disposition Selected Continued Care - Admitted Since 02/13/2021 [facility] Destination Coordination complete. Service Provider Selected Services Address Phone Fax Patient Preferred [facility] [address] [address] [facility] [address] * Case Mgmt DC Plan - Sahra Murdock - 02/17/2021 9:10 AM CDT Case Management Progress Note NAME:West Cerna : 1935 AGE: 85 y.o. ADMISSION DATE: 02/13/2021 DAYS ADMITTED: LOS: 4 days Todays Date: 02/17/2021 Plan Dc to inpatient setting, referrals pending with: [facility] OP Interventions Support Info or Referral Discharge Planning SW updated pt's son is interested in pt going to facility in the [place] and not [facility] [place]. SW followed up with pt regarding dc plans. Pt agrees with dc plans for placement and [place] area and states her son lives in the [facility]. SW reviewed pt's in [facility] list and which facilities were in the area of pt's son home. SW sent referrals out. UPDATE SW communicated with pt's son and provided facility [...] facility. Pt is interested in going to [facility]. SW sent referral. Medication Needs Financial [...] * Case Mgmt DC Plan - Nimisha Edouard RN - 02/15/2021 8:58 AM CDT Case Management Admission Assessment NAME:[place] Cerna :1935 AGE: 85 y.o. ADMISSION DATE: 02/13/2021 DAYS ADMITTED: LOS: 2 days Todays Date: 02/15/2021 Source of Information: Patient (outpatient case manager had brief conversation with son cathy r the phone;.poor connection as he was driving to [place] to visit his father ) Chief Complaint Patient is an 85 y/o female who was a trauma transfer to [facility] from [facility] on 1after falling in her home. Pat ient states she was leaning on a chair [...] Planning for Post-Acute Facility, Assist PRN with SW/NCM Ser vices Patient has not yet worked with therapies so discharge plan is pending. P atient states she would like to go home with [facility] who are presently caring for her who has advanced Parkinson's. Son, Brady, would like to be involved with all discharge planning. He states he has already talked to [facility] and they are willing to provide home health for patient. Patient has a cane but will need a roller walker. Patient Address/Phone [place] [address] [address] (home) Emergency Contact Extended Emergency Contact Information Primary Emergency Contact: Yomi Cerna Mobile Relation: Son Secondary Emergency Contact: Emmanuel Cerna Mobile Relation: Spouse Healthcare Directive Healthcare Directive: Yes, patient has a healthcare directive Type of Healthcare Directive: Durable power of senior attorney for healthcare, [facility] re directive Location of [...] Financial Resources Coverage Primary Insurance: Medicare (SSN: [id number]) Additional Coverage: RX Source of Income Source Of Income: SSI Financial Assistance Needed? No Psychosocial Needs Mental Health Mental Health History: No Substance Use History Substance Use History Screen: No Audit C = 0 Cage Aid = 0 Current/Previous Services PCP Geronimo Boland, , [facility] [place] [place] [facility] [address] [place] [id number] Durable Medical Equipment Durable Medical Equipment at [...] cannot remember the name but somewhere in [place], [place] Would patient return for future services?: Yes OT: No [employer] NURSE: No Retirement Facility/Senior Care SNF: No NH: No Inpatient Rehab IPR: In the past When did patient receive care?: Cannot remember name but thinks she went to a [facility] after previous hip surgery Long-Term Acute Care [...] Nimisha Edouard RN, BSN Trauma & Burn Head Athletic Trainer/Strength Coach Pager: [phone] * Care Plan - Jenny Strickland RN [...] stroke intervention indicated - Keep NPO until [employer] NURSE evaluation in AM - IVF 500ml NS as patient received IV contrast - Delirium protocol: - Avoid benzodiazepines, opiates and anticholinergics if possible as can contrib blackfeet/cause delirium. - Frequent reorientation, use of clocks/calendars, [...] Dr. Laird. Debra Acuna MD PGY-3 On [facility] Neurology Stroke Pager: [phone] History of Present Ilness 85yoF with PMH [...] Allergic/Immunologic: negative Stroke Activation Summary ASRT Arrival: 0427 Location of Response : 3627 Page Received: 9726 Clinical Presentation: Decreased LOC, Left facial droop [...] IV Therapy for IV Access BP: 175/121 (02/16 440) Temp: 36.6 C (97.9 F) (02/150) Pulse: 123 (02/15 0440) Respirations: 20 PER MINUTE (02/150) SpO2: 92 % (02/16 440) SpO2 Pulse: 98 (02/14 1500) NIHSS Completed at: 0435 NIH Stroke Scale Item Scoring Definition Score 1a. LOC 0=alert and responsive 1=arousable to minor stimulation 2=arousable only to painful stimulation 3=reflex responses or unrousable 2 1b. LOC questions-as patients age and month. Must be exact. 0=both correct 1=one correct (or dysarthria, intubated, foreign language) 2=neither correct 0 1c. Commands-open/close eyes, bottom scrubber and release non-paretic hand (other 1 step [...] assess due to amputation, fusion, etc L/R 1 6. Motor Leg-raise leg to 30 degrees supine x 5 seconds 0=no drift x 5 seconds 1=drift but doesnt hit bed 2=some antigravity effort, but cant sustain 3=no antigravity effort, but even minimal mvt counts 4=no movement at all X=unable to assess due to amputation, fusion, etc L/R 3/ 7. Limb Ataxia-check finger-nose- finger; heel-mckinney; and score only if out of pr [...] to Nose x Rapid alternating Heel to Mckinney Finger tap Foot tap Gait and Sation: [...] TOTBILI 0.7 02/15/2021 Glucose: (!) 140 (02/15/21 042) POC Glucose (Download): (!) 159 (02/15/21 043) Pertinent radiology reviewed., EKG Reviewed Associated attestation [...] 85 y.o. female. : 1935 MR N#: [id number] Allergies: Codeine and Lisinopril ASRT Arrival: 426 Location of Response : 9082 Page Received: 1761 Clinical Presentation: Decreased LOC, Left facial droop [...] Implant Name Type Inv. Item Serial No. Parts Sales Representative Lot No. LRB No. Used Action NAIL 12MM 360MM FEMORAL RIGHT PROXIMAL TFN-ADVANCED LATERAL - [id number] NAIL 12MM 360MM FEMORAL RIGHT PROXIMAL TFN-ADVANCED LATERAL [id number] SYNTHES [facility] [id number] Right 1 Implanted BLADE INTRAMEDULLARY NAIL NGUYEN [...] PACU - stable Ryan Farrell MD Pager [phone] * Care Plan - Jules Mcdaniel RN [...] MD - 02/14/2021 2:49 PM CDT THE [address] [address] PATIENT NAME: WEST CERNA MR#/PT#: [id number] Page 1 OPERATIVE REPORT DATE OF OPERATION: [...] spiral blade. We then placed the set conche loader and unloader on the spiral blade and ba cked [...] 2 distal interlocks. Alexandr Zapata MD / [facility] /[id number] cc: - Fawn Camargo MD - Alexandr [...] management Outcome: Goal Ongoing Flowsheets (Taken 02/14/2021 0256) Knowledge of pain management: Provide pain scale education Provide pharmacological pain management education Goal: Progress Toward Pain Management Goals Outcome: Goal Ongoing Flowsheets (Taken 02/14/2021 0256) Progress toward pain management goals: Assess progress [...] P xochitl Number [facility] [address] [place] [address] * MAGNESIUM (02/18/2021 5:09 AM CDT) Magnesium 2.0 1.6 - 2.6 mg/dL [facility] Specimen Blood Performing Organization Address City/State/ZIP Code P xochitl Number [facility] [address] [place] [address] * COMPREHENSIVE METABOLIC PANEL (02/18/2021 5:09 AM [...] >60 >60 mL/min [facility] Comment: Pakistani The eGFR is not validated f or use in drug dosing adjustments. Continue to use estimated creatinine clearance per dosing reference text. Please contact the Clinical Pharmacist for questions. eGFR >60 >60 mL/min [facility] Pakistani Comment: The eGFR is not validated for use in drug dosing adjustments. Continue to use estimated creatinine clearance per dosing reference text. Please contact the Clinical Pharmacist for questions. Specimen Blood Performing Organization Address City/[facility]/ZIP Code P xochitl Number [facility] [address] [place] [id number] * CBC (02/18/2021 5:09 AM CDT) White [...] MAIN LAB Specimen Blood Performing Organization Address [facility] Code P xochitl Number [facility] [address] [place] [id number] * TSH WITH FREE T4 REFLEX (02/17/2021 2:58 AM CDT) TSH 1.92 0.35 - 5.00 MCU/ML [facility] Specimen Performing Organization Address City/[facility] Code P xochitl Number [facility] [address] [place] [id number] * PHOSPHORUS (02/17/2021 2:58 AM CDT) Phosphorus 2.4 2.0 - 4.5 MG/DL [facility] Specimen Blood Performing Organization Address City/[facility]/ZIP Code P xochitl Number [facility] [address] [place] [id number] * MAGNESIUM (02/17/2021 2:58 AM CDT) Magnesium 1.9 1.6 - 2.6 mg/dL [facility] Specimen Blood Performing Organization Address City/[facility]/ZIP Code P xochitl Number [facility] [address] [place] [id number] * COMPREHENSIVE METABOLIC PANEL (02/17/2021 2:58 AM [...] >60 >60 mL/min [facility] Comment: Pakistani The eGFR is not validated f or use in drug dosing adjustments. Continue to use estimated creatinine clearance per dosing reference text. Please contact the Clinical Pharmacist for questions. eGFR >60 >60 mL/min [facility] Pakistani Comment: The eGFR is not validated for use in drug dosing adjustments. Continue to use estimated creatinine clearance per dosing reference text. Please contact the Clinical Pharmacist for questions. Specimen Blood Performing Organization Address City/State/ZIP Code P xochitl Number [facility] [address] [place] [address] * CBC (02/17/2021 2:58 AM CDT) White [...] MAIN LAB Specimen Blood Performing Organization Address City/[facility]/ZIP Code P xochitl Number [facility] [address] [place] [address] * IRON + BINDING CAPACITY + %SAT+ FERRITIN (02/16/2021 4:18 AM CDT) Iron 48 (L)Comment: SLT HEMOLYSIS 50 - 160 MCG/DL [facility] Iron 313 270 - 380 MCG/DL [facility] Binding-TIBC % Saturation 15 (L) 28 - 42 % [facility] Ferritin 282 (H) 10 - 200 NG/ML [facility] Specimen Performing Organization Address City/[facility]/ZIP Code P xochitl Number [facility] [address] [place] [address] * PHOSPHORUS (02/16/2021 4:18 AM CDT) Phosphorus 2.2 2.0 - 4.5 MG/DL [facility] Specimen Blood Performing Organization Address City/[facility] P xochitl Number [facility] [address] [place] [address] * MAGNESIUM (02/16/2021 4:18 AM CDT) Magnesium 1.9Comment: SLT HEMOLYSIS 1.6 - 2.6 mg/dL [facility] Specimen Blood Performing Organization Address [facility] P xochitl Number [facility] [address] [place] [address] * COMPREHENSIVE METABOLIC PANEL (02/16/2021 4:18 AM [...] >60 >60 mL/min [facility] Comment: Pakistani The eGFR is not validated f or use in drug dosing adjustments. Continue to use estimated creatinine clearance per dosing reference text. Please contact the Clinical Pharmacist for questions. eGFR >60 >60 mL/min [facility] Pakistani Comment: The eGFR is not validated for use in drug dosing adjustments. Continue to use estimated creatinine clearance per dosing reference text. Please contact the Clinical Pharmacist for questions. Specimen Blood Performing Organization Address City/State/ZIP Code P xochitl Number [facility] [address] [place] [address] * CBC (02/16/2021 4:18 AM CDT) White [...] MAIN LAB Specimen Blood Performing Organization Address City/[facility]/ZIP Code P xochitl Number [facility] [address] [place] [address] * CTA NECK WO/W CONTRAST+POST P (02/15/2021 [...] MD discussed these find ings with Dr. 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 No aneurysm or arteriovenous malformation is identified. [...] focal narrowing. 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 No aneurysm or arteriovenous malformation is identified. 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 No aneurysm or arteriovenous malformation is identified. [...] focal narrowing. 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 No aneurysm or arteriovenous malformation is identified. [...] on 02/15/2021 4:47 AM. Performing Organization Address City/[facility]/ZIP Code P xochitl Number RAD RESULTS * POC GLUCOSE (02/15/2021 4:31 AM CDT) Glucose, POC 159 (H) 70 - 100 MG/DL MAIN LAB Specimen Performing Organization Address City/[facility]/ZIP Code P xochitl Number MAIN LAB [address] [place] [address] * PHOSPHORUS (02/15/2021 4:21 AM CDT) Phosphorus 3.2 2.0 - 4.5 MG/DL MAIN LAB Specimen Blood Performing Organization Address [facility] Code P xochitl Number MAIN LAB [address] [place] [address] * MAGNESIUM (02/15/2021 4:21 AM CDT) Magnesium 2.2 1.6 - 2.6 mg/dL [facility] Specimen Blood Performing Organization Address City/[facility]/ZIP Code P xochitl Number [facility] [address] [place] [address] * COMPREHENSIVE METABOLIC PANEL (02/15/2021 4:21 AM [...] >60 >60 mL/min [facility] Comment: Pakistani The eGFR is not validated f or use in drug dosing adjustments. Continue to use estimated creatinine clearance per dosing reference text. Please contact the Clinical Pharmacist for questions. eGFR >60 >60 mL/min [facility] Pakistani Comment: The eGFR is not validated for use in drug dosing adjustments. Continue to use estimated creatinine clearance per dosing reference text. Please contact the Clinical Pharmacist for questions. Specimen Blood Performing Organization Address City/State/ZIP Code P xochitl Number [facility] [address] [place] [address] * CBC (02/15/2021 4:21 AM CDT) White Blood 10.0 4.5 - 11.0 K/UL [facility] Cells RBC 2.99 (L) 4.0 - 5.0 M/UL [facility] Hemoglobin 10.1 (L) 12.0 - 15.0 GM/DL MAIN LAB Hematocrit 29.1 (L) 36 - 45 % [facility] MCV 97.2 80 - 100 FL [facility] MCH 33.8 26 - 34 PG [facility] MCHC 34.8 32.0 - 36.0 G/DL [facility]IN LAB RDW 13.0 11 - 15 % [facility] Platelet Count 148 (L) 150 - 400 K/UL [facility] MPV 8.3 7 - 11 FL [facility] Specimen Blood Performing Organization Address City/State/ZIP Code P xochitl Number [facility]IN [facility] [address] [place] [id number] * FLUORO MOBILE IN OR (02/14/2021 2:34 PM CDT) Specimen Narrative Performed At This order has been auto finalized and does not conta in a result. VINOD LOCKHART Performing Organization Address City/[facility]/ZIP Code P xochitl Number VINOD LOCKHART * BLOOD TYPE CONFIRMATION - ORDER ONLY IF REQUESTED BY LAB (02/14/2021 4:48 AM CDT) ABO/RH(D) O POS MAIN LAB Specimen Blood,Peripheral Performing Organization Address City/[facility]/ZIP Code P xochitl Number MAIN [facility] [address] [place] [address] * TYPE & CROSSMATCH (02/14/2021 4:29 AM CDT) Units Ordered 0 MAIN LAB Crossmatch 02/17/2021,2359 MAIN LAB Expires Record Check 2ND TYPE REQUIRED MAIN LAB ABO/RH(D) O POS MAIN LAB Antibody Screen NEG MAIN LAB Electronic YES MAIN LAB Crossmatch Specimen Blood,Peripheral Performing Organization Address City/[facility]/ZIP Code P xochitl Number MAIN [facility] [address] [place] [address] * PHOSPHORUS (02/14/2021 4:28 AM CDT) Phosphorus 3.7 2.0 - 4.5 MG/DL [facility] Specimen Blood Performing Organization Address City/[facility]/ZIP Code P xochitl Number [facility] [address] [place] [address] * MAGNESIUM (02/14/2021 4:28 AM CDT) Magnesium 1.6 1.6 - 2.6 mg/dL [facility] Specimen Blood Performing Organization Address City/[facility]/ZIP Code P xochitl Number [facility] [address] [place] [phone] * COMPREHENSIVE METABOLIC PANEL (02/14/2021 4:28 AM [...] >60 >60 mL/min [facility] Comment: Pakistani The eGFR is not validated f or use in drug dosing adjustments. Continue to use estimated creatinine clearance per dosing reference text. Please contact the Clinical Pharmacist for questions. eGFR >60 >60 mL/min [facility] Pakistani Comment: The eGFR is not validated for use in drug dosing adjustments. Continue to use estimated creatinine clearance per dosing reference text. Please contact the Clinical Pharmacist for questions. Specimen Blood Performing Organization Address City/State/ZIP Code P xochitl Number [facility] [address] [place] [address] * CBC (02/14/2021 4:28 AM CDT) White [...] MAIN LAB Specimen Blood Performing Organization Address City/[facility]/ZIP Code P xochitl Number [facility] [address] [place] [address] * PHOSPHORUS (02/13/2021 11:00 PM CDT) Phosphorus 3.6 2.0 - 4.5 MG/DL [facility] Specimen Blood Performing Organization Address [facility] Code P xochitl Number [facility] [address] [place] [address] * MAGNESIUM (02/13/2021 11:00 PM CDT) Magnesium 1.8 1.6 - 2.6 mg/dL [facility] Specimen Blood Performing Organization Address [facility] P xochitl Number [facility] [address] [place] [address] * COMPREHENSIVE METABOLIC PANEL (02/13/2021 11:00 PM [...] ALT (SGPT) 19 7 - 56 U/L [facility] Anion Gap 11 3 - 12 MAIN LAB eGFR Non >60 >60 mL/min MAIN LAB Comment: Pakistani The eGFR is not validated f or use in drug dosing adjustments. Continue to use estimated creatinine clearance per dosing reference text. Please contact the Clinical Pharmacist for questions. eGFR >60 >60 mL/min [facility] Pakistani Comment: The eGFR is not validated for use in drug dosing adjustments. Continue to use estimated creatinine clearance per dosing reference text. Please contact the Clinical Pharmacist for questions. Specimen Blood Performing Organization Address City/[facility]/ZIP Code P xochitl Number [facility] [address] [place] [address] * CBC (02/13/2021 11:00 PM CDT) White Blood 10.0 4.5 - 11.0 K/UL [facility] Cells RBC 4.16 4.0 - 5.0 M/UL [facility] Hemoglobin 13.7 12.0 - 15.0 GM/DL [facility] Hematocrit 41.0 36 - 45 % [facility] MCV 98.5 80 - 100 FL [facility] MCH 32.9 26 - 34 PG [facility] MCHC 33.4 32.0 - 36.0 G/DL [facility] RDW 12.7 11 - 15 % [facility] Platelet Count 165 150 - 400 K/UL [facility] MPV 8.1 7 - 11 FL [facility] Specimen Blood Performing Organization Address City/[facility] P xochitl Number [facility] [address] [place] [address] * COVID-19 (SARS-COV-2) PCR (02/13/2021 11:00 PM CDT) Pathologist [facility] COVID-19 FLOCKED SWAB [facility] (SARS-CoV-2) NASOPHARYNGEAL PCR Source COVID-19 NOT DETECTED DN-NOT DETECTED [facility] (SARS-CoV-2) Comment: PCR This assay is [...] performance characteristics have been verified by the [facility]. Fact sheet for providers: https://www.fda.gov/media/8085 85/download Fact sheet for patients: https://www.fda.gov/media/3926 87/download Specimen Flocked Swab - Nasopharyngeal Performing Organization Address City/State/ZIP Code P xochitl Number MAIN LAB [address] [place] [address] * ECG-SCAN (02/13/2021 12:00 AM CDT) Narrative Performed At This result has an attachment that is n ot available. Ordered by an unspecified provider. * TELEMETRY STRIPS-SCAN (02/13/2021 12:00 AM CDT) Narrative Performed At This result has an attachment that is n ot available. Ordered by an unspecified provider. documented in this encounter Visit Diagnoses Diagnosis Trauma Injury, other and unspecified, unspecif ied site documented in this encounter Admitting Diagnoses Diagnosis Trauma Injury, other and unspecified, unspecif ied site documented in this encounter Administered Medications Action Date Dose Rate Site Medication Order MAR Action 02/19/2021 2:16 PM CDT 650 mg acetaminophen [...] at 1427, Until Tue02/20/21 at 0026, Constipation MA, Hold for loos e stools diphenhydrAMINE (BENADRYL) [...] Arm, Left Given 02/18/2021 5:28 PM CDT EPINEPHrine PF (ADRENALIN) injection 0. [...] NOTE: This is a HIGH ALERT Medication. 02/19/2021 12:00 PM CDT 1 drop gentamicin [...] drop Given 02/14/2021 8:09 PM CDT 02/18/2021 9:24 PM CDT 3 mg melatonin [...] 2249, Until Tue02/20/21 at 0026, Nausea/Vomiting Injectable 02/19/2021 8:48 AM CDT 5 mg oxyCODONE (ROXICODONE) tablet 5-15 mg Given 5-15 mg, Oral, EVERY 4 HOURS PRN, Starting on Tue02/16/21 at 1101, Until Tue02/20/21 at 0026, Pain PO 10 mg Given 02/18/2021 8:03 AM CDT 5 mg Given 02/17/2021 6:16 PM CDT 10 mg Given 02/17/2021 2:55 AM CDT 02/18/2021 9:18 PM CDT 17 [...] g Given 02/17/2021 8:54 PM CDT 02/18/2021 11:34 PM CDT 1 mg rOPINIRole (REQUIP) tablet 1 mg Given 1 mg, Oral, DAILY - SEE EMAR, First dos e on Tue02/18/21 at 2130, Until Discontinued 02/19/2021 8:47 AM CDT 1 tablet senna/docusate [...] 1 tablet Given 02/14/2021 12:18 AM CDT documented in this encounter Discontinued Medications Start [...] Provider: Jae abdullahi (after last modification) on 02/14/21 HARVEY Santiago)09 33 (Given at 2100, Until Discontinued, TOTAL [...] Schafer RN)1728 (Given - Provider: Jose Schafer RN)2119 (Med Not Given - Provider: Karen Thorne [...] drop, Both Eyes, EVERY 4 HOURS, First HARVEY Santiago)04 00 (Given dose on Tue02/14/21 at 2000, Until - Provider: Calixto Santiago RN)0932 (Given - Provider: Vero Schumacher RN)1209 (Given - Provider: Vero Schumacher RN)1721 (Given - Provider: Vero Schumacher RN)2054 (Given - Provider: Dunia Carrillo RN) 1004 (Given - New Bag - Provider: Jose chacko, HARVEY) iron sucrose (VENOFER) 300 mg in sodium [...] ríos dose on 02/14/21 at 2100, Until Winsome, Discontinued RN)1449 (Given - Provider: Vero Schumacher RN)2055 (Given - Provider: Dunia Carrillo RN) 0803 (Given - Provider: Jose Schafer RN )2118 (Given - Provider: Karen Thorne RN) 0847 (Given - Provider: Jose Schafer RN ) metoprolol tartrate tablet 25 mg 0933 (Given - 25 mg, Oral, TWICE DAILY, First dose on Provider: Shaq ortiz 02/14/21 at 1715, Until Discontinued, Matt merrill, Hold for heart rate < 60 bpm or systolic RN)2055 (Gi yissel - BP < 90 Provider: Dunia Carrillo RN) 0802 (Given - Provider: Jose Schafer RN ) [...] 1 PACKET 34 GRAMS = 2 PACKETS 0802 (Given - Provider: Jose Schafer RN )2118 (Given - Provider: Karen Thorne RN) 0941 (Med Not Given - Provider: Jose pablo RN - Reason: Patient Refused) polyethylene glycol 3350 (MIRALAX) 205 (Given - packet 17 g Provider: Dunia [...] NOTE: This is a HIGH ALERT Medication. 2333 (Given - Provider: Karen Thorne, HARVEY ) rOPINIRole (REQUIP) tablet 1 mg 1 mg, Oral, DAILY - SEE EMAR, First dos e on Tue02/18/21 at 2130, Until Discontinued 802 (Given - Provider: Jose Schafer, HARVEY )2117 (Given - Provider: Karen Thorne, HARVEY) 846 (Given - Provider: Jose Schafer, HARVEY ) senna/docusate (SENOKOT-S) tablet 1 932 (Given - tablet Provider: Vero 1 tablet, Oral, TWICE DAILY, First dose Reyes-Lodiana as, on Tue02/13/21 at 2300, Until RN)2054 (Given - Discontinued, Hold for loose stools Provider: Dunia Carrillo RN) 02/18/2021 02/19/2021 Medication Order 02/17/2021 bisacodyL (DULCOLAX) rectal suppository 10 mg 10 mg, Rectal, DAILY PRN, Starting on Tue02/17/21 at 1427, Until Tue02/20/21 at 0026, Constipation MA, Hold for loos e stools diphenhydrAMINE (BENADRYL) [...] ALERT Medication. 2123 (Given - Provider: Karen Thorne, HARVEY ) melatonin (MELATIN) tablet 3 mg 3 mg, Oral, AT BEDTIME PRN, Starting on Tue02/18/21 at 2051, Until Tue02/20/21 at 0026, Insomnia ondansetron (ZOFRAN) injection 4-8 mg 4-8 mg, Intravenous, EVERY 6 HOURS PRN , Starting on Tue02/13/21 at 2249, Until Tue02/20/21 at 0026, Nausea/Vomiting Injectable 0803 (Given - Provider: Jose Schafer, HAREVY ) 0848 (Given - Provider: Jose Schafer RN ) oxyCODONE (ROXICODONE) tablet 5-15 mg 0255 (Given - 5-15 mg, Oral, EVERY 4 HOURS PRN, Provider: Tyshawn Starting on Tue02/16/21 at 1101, Until HARVEY Santiago)1816 (Given Tue02/20/21 at 0026, Pain PO - Provider: Vero Schumacher RN) documented in this encounter Orders First Ordered Date Medications Ordered That Might Not Have Count Last Ordered Date Been Administered enoxaparin (LOVENOX) syringe 100 mg 1 melatonin (MELATIN) tablet 3 mg 1 2020 potassium, sodium phosphates (PHOS-NaK) 1 02/18/2021 packet 500 mg rOPINIRole (REQUIP) tablet 1 mg 1 2020 bisacodyL (DULCOLAX) rectal suppository 1 02/17/2021 10 mg 02/14/2021 diphenhydrAMINE (BENADRYL) injection 25 2 02/17/2021 mg EPINEPHrine PF (ADRENALIN) injection 0.3 1 02/17/2021 mg iron sucrose (VENOFER) 300 mg in sodium 1 02/17/2021 chloride 0.9% (NS) IVPB milk of magnesia (CONC) oral suspension 1 02/17/2021 10 mL 02/14/2021 polyethylene glycol 3350 (MIRALAX) 2 packet 17 g 02/14/2021 oxyCODONE (ROXICODONE) tablet 5-15 mg 2 02/16/2021 traMADoL (ULTRAM) tablet 50-100 mg 1 BACITRACIN ZINC 500 UNIT/GRAM TP OINT 1 02/15/2021 (Cabinet Override) 02/13/2021 lactated ringers infusion 4 02/15/2021 rivaroxaban (XARELTO) tablet 20 mg 1 02/14/2021 WATER FOR INJECTION, STERILE IJ SOLN 3 0 02/15/2021 (Cabinet Override) acetaminophen (TYLENOL EXTRA STRENGTH) 1 02/14/2021 tablet 1,000 mg acetaminophen (TYLENOL) tablet 650 mg 2 02/14/2021 ceFAZolin (ANCEF) IVP 2 g 1 02/14/2021 fentaNYL citrate PF (SUBLIMAZE) 1 2020 injection 25 mcg fentaNYL citrate PF (SUBLIMAZE) 2 2020 injection 50 mcg gentamicin 0.3 % ophthalmic solution 1 1 02/14/2021 drop magnesium sulfate 1 g/D5W 100 mL IVPB 3 02/14/2021 methocarbamoL (ROBAXIN) tablet 750 mg 1 02/14/2021 metoclopramide (REGLAN) injection 10 mg 1 02/14/2021 metoprolol tartrate tablet 25 mg 1 02/14 oxyCODONE (ROXICODONE) tablet 5 mg 1 promethazine (PHENERGAN) injection 6.25 1 02/14/2021 mg rOPINIRole (REQUIP) tablet 1.5 mg 1 02/01 rOPINIRole (REQUIP) tablet 3 mg 1 2020 enoxaparin (LOVENOX) syringe 30 mg 1 fentaNYL citrate PF (SUBLIMAZE) 1 2020 injection 25-50 mcg ondansetron (ZOFRAN) injection 4-8 mg 1 02/13/2021 senna/docusate (SENOKOT-S) tablet 1 1 tablet First Ordered Date Diet Count Last Ordered Date DISCHARGE DIET REGULAR 1 02/18/2021 First Ordered Date Nursing Count Last Ordered Date BATHING INSTRUCTIONS 1 02/18/2021 DISCHARGE ACTIVITY DRIVING 1 02/18/2021 DISCHARGE ACTIVITY NORMAL 1 02/18/2021 DISCHARGE ACTIVITY OTHER 1 02/18/2021 DISCHARGE ACTIVITY WT BEARING 1 02/19/20 DISCHARGE CONTACT 1 02/18/2021 DISCHARGE EDUCATION 2 [...] PHYSICAL THERAPY 1 02/13/2021 First Ordered Date [employer] NURSE Count Last Ordered Date [employer] NURSE CONSULT SPEECH-LANGUAGE EVAL & TX 1 02/15/2021 First Ordered Date Admission Count Last Ordered Date ADMIT TO INPATIENT (NO BED REQUEST) 1 First Ordered Date Discharge Count Last Ordered Date DISCHARGE PATIENT NOW 1 02/19/2021 [facility] 1 1 First Ordered Date Equipment Count Last Ordered Date 02/13/2021 PUMP IV CONTROL UNIT W/MODULES 2 021 COMPRESSION DEVICE, LEG 1 02/16/2021 First Ordered Date Vital Signs Count Last Ordered Date VITAL SIGNS 1 02/17/2021 First Ordered Date Activity Count Last Ordered Date MOBILITY 1 02/14/2021 First Ordered Date Discharge Contingent Count Last Ordered Date DISCHARGE PATIENT CONTINGENT 1 First Ordered Date SPECIALITY EQUIPMENT Count [...]
--- OUTSIDE RECORDS SUMMARY | 2021-03-11 17:49 | XMS REPORT | Encounter Summary ---
Author Author [facility] Organization [facility] Address Unknown Phone Unavailable Care Team Providers Care Inside Wirer Name Role Phone Geronimo Boland MD PCP Geronimo Boland MD Unavailable Kevin Holliday MD Unavailable Juan Messer MD Unavailable Chilango Shen MD Unavailable Reason for Referral * Radiology Services (Routine) Referred By Contact Referred To Contact Status Reason Specialty Diagnoses / Procedures Alexandr Zapata MD [address] [facility] [address] [place] [address] New Request Radiology Diagnoses Closed fracture of right hip, initial encounter (HCC) P rocedures FEMUR 2 VIEWS RIGHT Electronically signed by Alexandr Zapata MD at Encounter Details Care Team Description Date Type Department Alexandr Zapata MD [address] [facility] [address] [place] [address] Closed fracture of right hip, initial en counter (HCC) (Primary Dx) 03/06/2021 Orders Only Orthopedics and Spo rts Medicine: Main [place] [address] [place] [address] Social History Date Tobacco Use Types Packs/Day [...] Aut hor Goal Type Problems ed? Remain [facility] On track (02/14/2021 Heidi Robles, 8:19 AM CDT) HARVEY Zaldivar documented as of this encounter Results * FEMUR 2 VIEWS [...] fracture of right hip, initial e ncounter ([facility]) - Primary documented in this encounter Additional Health Concerns Assessment Noted Time A fall risk assessment has been completed for the pat ient 02/19/2021 8:48 AM CDT documented as of this encounter
--- OUTSIDE RECORDS SUMMARY | 2021-03-11 17:49 | XMS REPORT | Encounter Summary ---
Author Author [facility] Organization [facility] Address Unknown Phone Unavailable Care Team Providers Care Assistant Produce Manager Name Role Phone Geronimo Boland MD PCP Geronimo Boland MD Unavailable Kevin Holliday MD Unavailable Juan Messer MD Unavailable Chilango Shen MD Unavailable Reason for Referral * Consult, Test & Treat (Routine) Referred By Contact Referred To Contact Status Reason Specialty Diagnoses / Procedures Alexandr Zapata MD [address] [facility] [address] [place] [address] New Request Specialty Services Diagnoses Required Closed fracture of right hip, initial encounter ([facility]) Answer Question Wound Care Referral Comments Home Health requested for: wound care and dressing change (supplies needed) HH to do dressing changes Bactroban, 4x4, hypafix tape (3 days a week) Mon, Weds, Fri Electronically signed by Alexandr Zapata MD at * Consult, Test & Treat (Routine) Referred By Contact Referred To Contact Status Reason Specialty Diagnoses / Procedures Alexandr Zapata MD [address] [facility] [address] [place] [address] Closed Specialty Services Diagnoses Required Closed fracture of right hip with routine healing, subsequent encounter Answer Question Evaluate and treat Treatment 2-3 times/week Frequency 8 weeks Duration Weight-bearing as tolerated Weight Bearing Status Comments Please fax any updates or reports to [phone] Zapata Call [phone] or [phone] with questions or concerns. Electronically signed by Alexandr Zapata MD at Reason for Visit * Reason Comments Post-op Femur Encounter Details Care Team Description Date Type Department Alexandr Zapata MD [address] [facility] [address] [place], [place] [id number] Closed fracture of right hip with routin e healing, subsequent encounter (Primary Dx); Closed fracture of right hip, initial encounter (HCC) 03/10/2021 Office Visit Orthopedics and Spo rts Medicine: [facility] [address] [place] [address] Social History Date Tobacco Use Types Packs/Day [...] Signs Reading Time Taken Comments Vital Sign - - Blood Pressure - - Pulse - - Temperature - - Respiratory Rate - - Oxygen Saturation - - Inhaled Oxygen Concentration 106.1 kg (234 lb) 03/10/2021 11:58 AM CDT Weight 167.6 cm (5' 5.98") 03/10/2021 11:58 AM CDT Height 37.79 03/10/2021 11:58 AM CDT Body Mass Index documented in this encounter Functional Status Date of Assessment Functional Status Response 02/14/2021 Does the patient have a hearing impairment: Yes documented as of this encounter Ordered Prescriptions Start Date End Date Prescription Sig Dispensed Refills 03/10/2021 doxycycline hyclate Take one 30 tablet 1 (VIBRACIN) 100 mg tablet tablet by mouth twice daily. documented in this encounter Progress Notes * Alexandr Zapata MD - 03/10/2021 11:20 AM CDT S: [place] underwent CMN right pertrochanteric hip fracture on 02/14/21. Guerrero rick returns 3 weeks out for her post op appointment. She states her sutures have b een catching. She has been in facility but released to go home today. She is c urrently on Lovenox but prior to surgery was on Xarelto. PE: Her distal wounds are healed. Her proximal incision is well healed. There is scabbing and erythema around sutures. A/P: 3 weeks s/p CMN right pertrochanteric hip fracture -Will remove her sutures today -She is to start Xarelto when she is done with Lovenox. -PT orders provided to begin physical therapy -WBAT RLE -started her on 2 week course of abx -HH to do dressing changes Bactroban, 4x4, hypafix tape (3 days a week) Mon, Wed s, Fri -follow up 6 weeks with xray of her right femur Due to COVID-19 pandemic, I have taken down these notes in presence of Alexandr patel MD using Zoom Meeting, Fanta Kim documented in this encounter Plan of Treatment Order Schedule Name Type Priority Associated Diag noses Ordered: 03/10/2021 AMB REFERRAL TO PHYSICAL Outpatient Routine Close d fracture of right THERAPY Referral hip with routine naty hunter, subsequent encounter Ordered: 03/10/2021 AMB REFERRAL TO HOME CARE Outpatient Routine Clos ed fracture of right Referral hip, initial encounter (HCC) documented as of this encounter Goals Goal Patient Associated Recent Progress Patient-Stat Aut hor Goal Type Problems ed? Remain [facility] On track (02/14/2021 No Travis, 8:19 AM CDT) HARVEY Zadlivar documented as of this encounter Visit Diagnoses Diagnosis Closed fracture of right hip with routi ne healing, subsequent encounter - Primary Closed fracture of right hip, initial e ncounter ([facility]) documented in this encounter Additional Health Concerns Assessment Noted Time A fall risk assessment has been completed for the pat ient 02/19/2021 8:48 AM CDT documented as of this encounter
--- OUTSIDE RECORDS SUMMARY | 2021-03-11 17:49 | XMS REPORT | Encounter Summary ---
Author Author [facility] Organization [facility] Address Unknown Phone Unavailable Care Team Providers Care Mail Messenger Name Role Phone Geronimo Boland MD PCP Geronimo Boland MD Unavailable Kevin Holliday MD Unavailable Juan Messer MD Unavailable Chilango Shen MD Unavailable Reason for Visit * Auth/Cert Referred By Contact Referred To Contact Status Reason Specialty Diagnoses / Procedures Diagnoses Trauma Right Hip Fracture Encounter Details Care Team Description Date Type Department Fawn Camargo MD [address] [place] [address] 02/15/2021 Hospital Imaging, CT: Main [facility], Encounter Main [facility] [address] [facility] [address] [place] [address] Social History Date Tobacco Use [...] impairment: Yes documented as of this encounter Medications at Time of Discharge [...] tablet by tablet mouth twice daily. 02/18/2021 rivaroxaban (XARELTO) 20 Take 20 mg by 0 mg tablet mouth daily. Take with food. documented as of this encounter Discharge Disposition Code Departure Means Destination Disposition Home Home or Self Care documented in this encounter Plan of Treatment Not on filedocumented as of this encounter Goals Goal Patient Associated Recent Progress Patient-Stat Aut hor Goal Type Problems ed? Remain independent Hospital On track (02/14/2021 Heidi Robles, 8:19 AM CDT) HARVEY Zaldivar documented as of this encounter Procedures Comments Procedure Name Priority Date/Time Associated Diag nosis CTA NECK WO/W STAT 02/15/2021 CONTRAST+POST P 5:13 AM CDT CTA HEAD WO/W CONTR+POST STAT 02/15/2021 PRO 5:13 AM CDT documented in this encounter Visit Diagnoses Not on filedocumented in this encounter Administered Medications Action Date Dose Rate Site Medication Order MAR Action 02/15/2021 5:23 AM CDT 60 mL iohexoL (OMNIPAQUE-350) 350 mg/mL Given injection 60 mL 60 mL, Intravenous, ONCE, 1 dose, On Silver n 02/15/21 at 0530, NOTE: This is a HIGH ALERT Medication. 02/15/2021 5:19 AM CDT 50 mL sodium chloride PF 0.9% injection 50 mL Given 50 mL, Intravenous, ONCE, 1 dose, On Silver n 02/15/21 at 0530, DO NOT SEND this medication unless it is requested. This med is usually available in floor stock., Intra-procedure (IR) documented in this encounter Additional Health Concerns Assessment Noted Time A fall risk assessment has been completed for the pat ient 02/14/2021 9:11 PM CDT documented as of this encounter
--- OUTSIDE RECORDS SUMMARY | 2021-03-11 17:49 | XMS REPORT | Encounter Summary ---
Author Author [facility] Organization [facility] Address Unknown Phone Unavailable Care Team Providers Care Manager Product Management Name Role Phone No Pcp, Na PCP Unavailable Geronimo Boland MD Unavailable Kevin Holliday MD Unavailable Juan Messer MD Unavailable Chilango Shen MD Unavailable Encounter Details Care Team Description Date Type Department 02/13/2021 Travel Social History Date Tobacco Use Types Packs/Day Years Used Never Assessed Sex Assigned at Date Recorded Female 02/23/2021 9:56 AM CDT Date Recorded COVID-19 Exposure Response 02/13/2021 5:11 PM CDT In the last month, have you been in contact with [facility] to assess someone who was confirmed or suspected to have Coronavirus / COVID-19? documented as of this encounter Plan of [...] has been completed for the pat ient 02/13/2021 11:00 PM CDT documented as of this encounter
--- OUTSIDE RECORDS SUMMARY | 2021-03-11 17:49 | XMS REPORT | Encounter Summary ---
Author Author [facility] Organization [facility] Address Unknown Phone Unavailable Care Team Providers Care Soccer Coach Name Role Phone No Pcp, Na PCP Unavailable Geronimo Boland MD Unavailable Kevin Holliday MD Unavailable Juan Messer MD Unavailable Chilango Shen MD Unavailable Reason for Visit * Auth/Cert Referred By Contact Referred To Contact Status Reason Specialty Diagnoses / Procedures Diagnoses Trauma Right Hip Fracture Encounter Details Care Team Description Date Type Department Nolan Mello MD [address] [place] [address] 02/14/2021 Anesthesia Operating Room: [facility] [address] [facility] [address] [place] [address] Anesthesia Record Responsible Anesthesiologist Anesthesia Start Time Anesthesi a Stop Time Procedure Name Nolan Mello MD 02/14/21 1225 02/14/21 1452 TREATMENT INTERTROCHANTERIC/ PERITROCHANTERIC/ SUBTROCHANTERIC FEMORAL FRACTURE WITH INTERMEDULLARY IMPLANT WITH/ WITHOUT INTERLOCKING SCREWS/ CERCLAGE (Right Hip) Date Time Event Comment 1103 1106 AN Equip Check 1224 Out of Pre Procedure 1225 Anes Start 1225 An Start Data 1225 In Room 1230 An Induction The patient was ree valuated immediately before moderate or deep sedation use and before anesthesia induction. 1232 An Intubation 1234 Anesthesia Ready 1247 Antibiotic Given 1302 Proc Start 1447 An Extubation 1449 an stop data 1452 Handoff to RN I completed my SBAR handoff to the receiving nurse. 1452 An Stop 1452 Handoff to RN I completed my SBAR handoff to the receiving nurse. Meds Name Total fentaNYL PF (SUBLIMAZE) injection 200 mcg lidocaine PF 2% 100mg/5mL vial 100 mg propofol (DIPRIVAN) 200 mg/ 20 mL 100 mg injection (VIAL) rocuronium (ZEMURON) injection 60 mg ondansetron (ZOFRAN) injection 4 mg phenylephrine (GUILLERMO-SYNEPHRINE) 0.1 mg/mL 900 mcg injection syr ceFAZolin (ANCEF) 2 g lactated ringers infusion 900 mL * Name O2 N2O Inspired N2O Sevoflurane Inspired Sevoflurane * No blood administrations on file. Removal Type Details Placement 02/17/21 0400 by Vero Schumacher R N Peripheral 02/13/21; 2250; PreHospital Outside 2250 by Marco A IV Facility; R; Hand; 20 G; 02/17/21; 0400 HARVEY Alvarado 02/16/21 0900 by Baylee Higuera RN Indwelling 02/13/21; 2319; Present on Admission; 1 2 02/13/21 2319 by Marco A, Urinary FR; Regular (Two-way); 02/16/21; 0900 HARVEY Alvarado Catheter 02/14/21 1447 by Vivek Chirinos CRNA ETT 02/14/21; 1232; Ventilated by mask with 02/14/21 1232 by francesco Chirinos airway (2); Direct laryngoscopy; NANDA Filney Single-Lumen, Cuffed; ETT Size: 7mm; Mac; Blade Size: 3; Cricoid Pressure: Yes; Oral; 1-Full view of the glottis; 1 insertion attempt; Auscultation, ETCO2 Detector; Taped at Gums: 22 centimeters ; 02/14/21; 1447 02/19/21 2226 by Ku, Cotton Header Wounds 02/14/21; 1445; Left; Leg; 02/19/21; 0 02/14/21 1445 by Tameka, 2226 HARVEY Leon documented in this encounter Social History Date Tobacco Use Types Packs/Day [...] impairment: Yes documented as of this encounter OR Notes * Anesthesia Postprocedure Evaluation - Jairo Love MD - 02/14/2021 3:51 PM CDT Post-Anesthesia Evaluation Name: [place] : 1935 Age: 85 y.o. Sex: female Procedure Information Anesthesia Start Date/Time: 02/14/21 1225 Procedure: TREATMENT INTERTROCHANTERIC/ PERITROCHANTERIC/ SUBTROCHANTERIC FEMOR AL FRACTURE WITH INTERMEDULLARY IMPLANT WITH/ WITHOUT INTERLOCKING SCREWS/ CERCL AGE (Right Hip) Location: MAIN OR 03 / Main OR/Periop Surgeons: Alexandr Zapata MD Post-Anesthesia Vitals BP: 163/84 (02/14 1515) Temp: 37.7 C (99.8 F) (02/14 1452) Pulse: 98 (02/14 1500) Respirations: 17 PER MINUTE (02/14 1500) SpO2: 100 % (02/14 1500) SpO2 Pulse: 98 (02/14 1500) Vitals Value Taken Time BP 163/84 02/14/21 1515 Temp 37.7 C (99.8 F) 02/14/21 1452 Pulse 98 02/14/21 1500 Respirations 17 PER MINUTE 02/14/21 1500 SpO2 100 % 02/14/21 1500 Post Anesthesia Evaluation Note Evaluation location: Pre/Post Patient participation: recovered; patient participated in evaluation Level of consciousness: alert Pain score: 5 Pain management: adequate Hydration: normovolemia Temperature: 36.0C - 38.4C Airway patency: adequate Perioperative Events Post-op nausea and vomiting: no PONV Postoperative Status Cardiovascular status: hemodynamically stable Respiratory status: spontaneous ventilation Follow-up needed: none Additional comments: Patient at baseline pain level and BP. Perioperative Events Perioperative Event: No Emergency Case Activation: No Associated attestation - Nolan Mello MD - 02/14/2021 4:22 PM CDT Post-Anesthesia Evaluation Attestation: I reviewed and agree the indicated post- anesthesia care was provided. I have reviewed shen portions of the indicated post anesthesia care. I have examined the patient's vitals, physical status, and com plications and agree with what is documented. Staff name: Nolan Mello MD Date: 02/14/2021 * Anesthesia Preprocedure Evaluation - Tim Rhodes MD - 02/14/2021 9:19 AM CDT Anesthesia Pre-Procedure Evaluation Name: [place] : 1935 Age: 85 y.o. Sex: female 85 y.o. female with past medical history of A. fib on Xarelto who presented as a trauma transfer after a ground-level fall she sustained a right subtrochanteric femur fracture Procedure Info: Procedure Information Date/Time: 02/14/21 1232 Procedure: TREATMENT INTERTROCHANTERIC/ PERITROCHANTERIC/ SUBTROCHANTERIC FEMOR AL FRACTURE WITH INTERMEDULLARY IMPLANT WITH/ WITHOUT INTERLOCKING SCREWS/ CERCL AGE (Right ) Location: MAIN OR 01 / Main OR/Periop Surgeons: Alexandr Zapata MD Physical Assessment Vital Signs (last filed in past 24 hours): BP: 143/58 (02/14 747) Temp: 36.4 C (97.5 F) (02/14 747) Pulse: 79 (02/14 747) Respirations: 18 PER MINUTE (02/14 747) SpO2: 95 % (02/14 747) Height: 167.6 cm (66") (02/13 2253) Weight: 105 kg (231 lb 7.7 oz) (02/13 2253) Patient History Allergies Allergen Reactions Codeine NAUSEA ONLY Lisinopril COUGH Current Medications Not on File Review of Systems/Medical History Patient summary reviewed Nursing notes reviewed Pertinent labs reviewed PONV Screening: Female gender, Non-smoker and Postoperative opioids No history of anesthetic complications No family history of anesthetic complications Pulmonary Not a current smoker No indications/hx of asthma no COPD Cardiovascular Hypertension, No past LA, No hx of coronary artery disease No coronary artery bypass graft No PTCA No palpitations Dysrhythmias (On xarelto (last took AM 02/13)); atrial fibrillation No angina Dyspnea on exertion GI/Hepatic/Renal GERD, well controlled No hx of liver disease No renal disease Neuro/Psych No seizures No CVA Musculoskeletal Fractures (right subtrochanteric femur fracture) Endocrine/Other No diabetes No hypothyroidism No hyperthyroidism No blood dyscrasia Obesity Physical Exam Airway Findings Mallampati: II TM distance: >3 FB Neck ROM: full Mouth opening: good Airway patency: adequate Dental Findings: Upper dentures Cardiovascular Findings: Rhythm: irregular No peripheral edema Pulmonary Findings: Breath sounds clear to auscultation. Abdominal Findings: Abdominal exam deferred Neurological Findings: Normal mental status Constitutional findings: No acute distress Well-developed Well-nourished Diagnostic Tests Hematology: Lab Results Component Value Date HGB 12.0 02/14/2021 HCT 34.3 02/14/2021 PLTCT 145 02/14/2021 WBC 8.6 02/14/2021 MCV 97.3 02/14/2021 MCH 33.9 02/14/2021 MCHC 34.9 02/14/2021 MPV 8.3 02/14/2021 RDW 13.0 02/14/2021 General Chemistry: Lab Results Component Value Date NA 138 02/14/2021 K 4.2 02/14/2021 CL 102 02/14/2021 CO2 27 02/14/2021 GAP 9 02/14/2021 BUN 21 02/14/2021 CR 0.54 02/14/2021 GLU 107 02/14/2021 CA 9.0 02/14/2021 ALBUMIN 3.4 02/14/2021 MG 1.6 02/14/2021 TOTBILI 1.0 02/14/2021 PO4 3.7 02/14/2021 Coagulation: No results found for: PT, PTT, INR Anesthesia Plan ASA score: 3 Plan: general Induction method: intravenous NPO status: acceptable Informed Consent Anesthetic plan and risks discussed with patient. Use of blood products discussed with patient Blood Consent: consented documented in this encounter Plan of Treatment Not on filedocumented as of this encounter Goals Goal Patient Associated Recent Progress Patient-Stat Aut hor Goal Type Problems ed? Remain [facility] On track (02/14/2021 Heidi Robles, 8:19 AM CDT) HARVEY Zaldivar documented as of this encounter Visit Diagnoses Not on filedocumented in this encounter Administered Medications Action Date Dose Rate Site Medication Order MAR Action 02/14/2021 12:47 PM CDT 2 g ceFAZolin (ANCEF) injection Given Intravenous, INTRA-PROCEDURE MED, Starting on 02/14/21 at 1247, Until 02/14/21 at 1452, Anesthesia Intra-o p 02/14/2021 2:41 PM CDT 25 mcg fentaNYL citrate PF (SUBLIMAZE) Given injection Intravenous, INTRA-PROCEDURE MED, Starting on 02/14/21 at 1228, Until 02/14/21 at 1452, Anesthesia Intra-o p 25 mcg Given 02/14/2021 2:21 PM CDT 50 mcg Given 02/14/2021 1:17 PM CDT 100 mcg Given 02/14/2021 12:28 PM CDT 02/14/2021 12:30 PM CDT 100 mg lidocaine PF 20 mg/mL (2 %) injection Given Intravenous, INTRA-PROCEDURE MED, Starting on 02/14/21 at 1230, Until 02/14/21 at 1452, Anesthesia Intra-o p 02/14/2021 2:26 PM CDT 4 mg ondansetron (ZOFRAN) injection Given Intravenous, INTRA-PROCEDURE MED, Starting on 02/14/21 at 1426, Until 02/14/21 at 1452, Anesthesia Intra-o p 02/14/2021 1:44 PM CDT 200 mcg phenylephrine (GUILLERMO-SYNEPHRINE) injection Given syringe Intravenous, INTRA-PROCEDURE MED, Starting on 02/14/21 at 1324, Until 02/14/21 at 1452, Anesthesia Intra-o p 100 mcg Given 02/14/2021 1:35 PM CDT 200 mcg Given 02/14/2021 1:24 PM CDT 100 mcg Given 02/14/2021 12:58 PM CDT 100 mcg Given 02/14/2021 12:54 PM CDT 200 mcg Given 02/14/2021 12:39 PM CDT 02/14/2021 12:30 PM CDT 100 mg propofol (DIPRIVAN) injection Given Intravenous, INTRA-PROCEDURE MED, Starting on 02/14/21 at 1230, Until 02/14/21 at 1452, Anesthesia Intra-o p 02/14/2021 1:16 PM CDT 10 mg rocuronium injection Given Intravenous, INTRA-PROCEDURE MED, Starting on 02/14/21 at 1230, Until 02/14/21 at 1452, Anesthesia Intra-o p 50 mg Given 02/14/2021 12:30 PM CDT documented in this encounter Additional Health Concerns Assessment Noted Time A fall risk assessment has been completed for the pat ient 02/14/2021 9:11 PM CDT documented as of this encounter
--- NOTE | 2021-03-11 18:53 | ED Upper Extremity ---
General Chief Complaint: Upper Extremity Stated Complaint: R ARM BELOW ELBOW Nursing Triage Note: PT REPORTS TO ER VIA EMS. PT REPORTS R ARM PAIN BELOW THE ELBOW WITH A BURNING QAULITY. PT STATES THAT SHE WAS USING HER WALKER AROUND 1400 HRS TRYING TO STAND UP WHEN THE PAIN BEGAN. PT PLACED 3 LIDOCAINE PATCHES WHICH CAUSED NUMBNESS. EARLIER PT REFUSED TRANSPORT WITH EMS FOR NUMBNESS COMPLAINT BUT TOOK TRANSPORT FOR PAIN COMPLAINT. PT REPORTS THAT NOW THAT SHE IS IN THE ER THE PAIN IS GONE AT THIS TIME. PT TOOK TYLENOL AND A MUSCLE RELAXER AT HOME AND WAS NOT WANTING TO TAKE ANYTHING ELSE FOR PAIN. Source: patient, EMS Exam Limitations: no limitations History of Present Illness Date Seen by Provider: Mar 11, 2021 Time Seen by Provider: 17:44 Initial Comments 85-year-old female with past medical history of recent right hip fracture as well as she is anticoagulated on Xarelto for A. fib coming in via EMS from home due to right arm burning pain. She states it started burning around 1 PM today. This happened after she was actively trying to pick herself up from the commode. Had immediate pain in her shoulder that radiated down her arm. She put on 3 lidocaine patches along her arm, but when her arm became numb this worried her and she called an ambulance. They took off a couple of the patches and then she refused transport. Pain continued later and she called back to come to the emergency department. Denies any numbness, weakness, fever, trauma, or any other concerns. Has not missed any doses of her Xarelto and denies any clot history. Is otherwise denying any other issues. She said the pain completely resolved just prior to the ambulance arriving the second time. She did take Tylenol a little bit before that and thinks that helped. Allergies and Home Medications Allergies Coded Allergies: No Known Drug Allergies (Unverified , 10/09/20) Patient Home Medication List Home Medication List Reviewed: Yes Review of Systems Constitutional: No chills, No fever EENTM: No blurred vision Respiratory: No cough, No short of breath Cardiovascular: No chest pain Gastrointestinal: No abdominal pain, No diarrhea, No nausea, No vomiting Genitourinary: No dysuria Musculoskeletal: No back pain Skin: No rash Psychiatric/Neurological: No Symptoms Reported All Other Systems Reviewed Negative Unless Noted: Yes Past [id number]-[id number] Hx Patient Social History Tobacco Use?: No Substance use?: No Alcohol Use?: No Pt feels they are or have been: No Immunizations Up To Date First/Initial COVID19 Vaccinat: NA Physical Exam Vital Signs Vital Signs - First Documented 03/11/21 17:44 Temp 36.3 Pulse 94 Resp 18 B/P (MAP) 152/70 (97) Pulse Ox 99 O2 Delivery Room Air Capillary Refill : Less Than 3 Seconds Height, Weight, BMI Height: '" Weight: lbs. oz. kg; 37.00 BMI Method: General Appearance: WD/WN, no apparent distress HEENT: PERRL/EOMI, normal ENT inspection, pharynx normal Neck: non-tender, full range of motion, supple, normal inspection Cardiovascular: regular rate, rhythm, no edema, no murmur, other (2+ distal pulses everywhere, normal capillary refill bilateral hands) Respiratory: chest non-tender, lungs clear, normal breath sounds, no respiratory distress, no accessory muscle use Gastrointestinal: normal bowel sounds, non tender, soft; No distended, No guarding, No rebound Back: normal inspection Shoulder: normal inspection, non-tender, no evidence of injury, normal ROM Elbow/Forearm: normal inspection, non-tender, no evidence of injury, normal ROM Wrist: Yes normal inspection, Yes non-tender, Yes no evidence of injury, Yes normal ROM Hand: normal inspection, non-tender, no evidence of injury, normal ROM Neurologic/Tendon: normal sensation, normal motor functions, normal tendon functions Neurologic/Psychiatric: 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 Trialed Tylenol and lidocaine patches. Pain completely resolved prior to arrival. Never fell and had no trauma. Has no bony tenderness and I do not believe an x-ray would be helpful. Does not have any swelling or secondary signs of a DVT. Additionally she has not missed any doses of Xarelto. I did a brief [id number] ultrasound as well assessing for any proximal DVT in her right arm and she has good collapsibility of all veins without any evidence of clot. She has normal distal pulses and no evidence of peripheral vascular d isease. This does sound musculoskeletal in nature to me, and given the burning down her right arm is potentially nerve related from her neck. She says she does have back and neck problems at times. Most importantly, she is neuro intact now, and has no symptoms. I believe she is stable for discharge with outpatient follow-up. She was sent home with strict return precautions Departure Impression Primary Impression: Right upper limb pain Additional Impression: Burning pain Disposition: 01 HOME, SELF-CARE Condition: Stable Departure-Patient Inst. Decision time for Depature: 18:53 Referrals: SELFMADIHA MD (PCP/Family) Primary Care Physician Patient Instructions: Muscle Strain (DC) Add. Discharge Instructions: You were seen in the emergency department for right arm pain. Given that it was burning in nature it likely was nerve related, and most likely coming from your neck. You probably pinched a nerve trying to get up from going to the bathroom. You can trial using 1 lidocaine patch as well as Tylenol. If this comes back, you can call your primary care doctor, orthopedist, or always come back to the ER if things are severe. All discharge instructions reviewed with patient and/or family. Voiced understanding. NOBLE GROVER MD Mar 11, 2021 18:53
[2021-03-11 19:05] VITALS: BP 129/83
== END 2021-03-11 19:25 | disposition home or self-care (01) ==
LOC: EDUNIT# 17:44 → ER FS 17:45
DX: M79.601 Pain in right arm (principal); I48.91 Unspecified atrial fibrillation; Z79.01 Long term (current) use of anticoagulants
CPT/HCPCS: 99283